=== PATIENT | male | born 1980 | race Caucasian/White ===

== ENCOUNTER 2024-06-27 20:22 | Outpatient (REF) | payer OTHER, SELFPAY ==
--- OUTSIDE RECORDS SUMMARY | 2024-06-27 20:23 | XMS_ITS ---
Author Name [facility] [place] [facility] [place] [facility] [place] Address [address] [place] [address] Care Team Providers Care Land Classifier Name Role Phone DE LA VEGA RADHA Primary Care Provider Unavailab le Insurance Providers: All historical and current Section Date Range: From patient's date of to the date document was created. This section includes the names of all active insurance providers for the patient. Insurance Provider Type of Coverage Plan Name Start of Policy Coverage End of Policy Coverage Group Number Member ID Insurance Provider's Telephone Number Policy Meza's Name Patient's Relationship to Policy Meza [employer] TRICA RE DODA Apr 07, 2012 DODA [id number] [phone] PATIENT [facility] [address] T Jun 03, 2017 [id number] [phone] [facility] PATIENT Selected Encounter This section includes the information on record at [place] for the Encounter. Date/Time Encounter Type Encounter Description Reason Pro vider Source Jul 09, 2023 03:57 PM Outpatient Encounter PRIMARY CARE/MEDICINE IHE Encounter Template Text not used by [place] Plan of Treatment: Future Appointments (+ 6 months) and Future Tests (+/- 45 days) The Plan of Treatment section includes future care activities for the patient from all [facility]. This section includes future appointments and future orders which are active, pending or scheduled. Future Appointments This section includes appointments that were scheduled to occur 6 months from the date of the Encounter, up to a maximum of 20 appointments. The data comes from all [place] treatment facilities. Appointment Date/Time Appointment Type Appointme nt Facility Name Jul 17, 2023 04:00 PM AMBULATORY - MEDICINE [facility] Social History: Smoking Status (Most current) and Tobacco Use (All prior to encounter date) This section includes the most current, and the historical, smoking and tobacco- related health factors from the [place] facility where the Encounter took place. Current Smoking Status This section includes the most current smoking, or tobacco-related health factor, from the [place] facility where the Encounter took place. Date/Time Current Smoking Status Comment Facil mery Jun 20, 2023 09:00 AM AH-BPR SMOKING DEP LOYMENT UNKNOWN [facility] Tobacco Use History This section includes a history of the smoking, or tobacco-related health factors, that were collected on or before the date of the Encounter. The data comes from the [facility] where the Encounter took place. Date/Time Smoking Status/Tobacco Use Comment F acility Aug 08, 2010 12:30 PM LIFETIME NON-TOBACCO USER [facility] Encounter Notes: All associated encounter notes This section contains the clinical notes associated to the Encounter. Date/Time Encounter Note(s) Provider Source Jul 01, 2023 03:58 PM NONVA DIAGNOSTIC Anton WATSON REPORT: LOCAL TITLE: NonVA Diagnostic Test STANDARD TITLE: NONVA DIAGNOSTIC STUDY REPORT DATE OF NOTE: JUL 01, 2023@15:58 ENTRY DATE: JUL 09, 2023@15:58:27 AUTHOR: GAYATHRI ACEVESIGNER: URGENCY: STATUS: COMPLETED EVENT PROCEDURE: Exercise Stress Test TREATING FACILITY: [facility] Interpretation Summary Clinical PAtient exercised per supine bike protocol, reaching 10 METS and 66% MPHR. RPP of 27K Electrocardiographic Baseline study demonstrates sinus rhythm with non specific IVCD, Withoit significant ST-TW perturbation. With exercise, there are no diagnostic ischemic changes nor arrhythmias Echocardiographic Rest images demonstrate preserved global and regional LV systolic function. With Exercise, there is equal and vigorous recruitment of myocardium. Conclusion Although patient did not reach THR, the rate-pressure product of 27K is a surrogate parameter of diagnostic tests. THE ATTACHED SCANNED DOCUMENT HAS BEEN REVIEWED AND AUTHORIZED BY DOCUMENT (S) SENT TO [facility] TO BE SCANNED. TO VIEW THIS DOCUMENT, OPEN CPRS TOOLS MENU AND THEN OPEN THE IMAGE DISPLAY VIEWER. /kristie/ GAYATHRI ACEVES LPN Signed: 07/09/2023 16:05 Receipt Acknowledged By: 07/15/2023 16:04 /kristie/ GAYATHRI STEINBERG APRN [facility]
--- OUTSIDE RECORDS SUMMARY | 2024-06-27 20:23 | XMS_ITS | Encounter Summary ---
Author Name [facility] [place] [facility] [place] Address [address] [place] [address] Care Team Providers Care Incident Response Lead Name Role Phone RADHA DE LA VEGA Primary Care Provider Unavailab le Insurance Providers: [...] TRICA RE DODA Apr 07, 2012 DODA [id number] PATIENT [facility] [address] T Jun 03, 2017 [id number] [phone] [address] PATIENT Selected Encounter This section includes the information on record at [place] for the Encounter. Date/Time Encounter Type Encounter Description Reason Pro vider Source Jul 01, 2023 12:00 PM Outpatient Encounter COMMUNITY CARE CONSULT IHE Encounter Template Text not used by [facility] Plan of Treatment: Future Appointments (+ 6 [...] 20 appointments. The data comes from all [place] treatment facilities. Appointment Date/Time Appointment Type Appointme nt Facility Name Jul 17, 2023 04:00 PM AMBULATORY - MEDICINE [facility] Social History: Smoking Status (Most current) and Tobacco Use (All prior to encounter date) This section includes the most current, and the historical, smoking and tobacco- related health factors from the [place] facility where the Encounter took place. Current Smoking Status This section includes the most current smoking, or tobacco-related health factor, from the [place] facility where the Encounter took place. Date/Time Current Smoking Status Comment Facil ity Jun 20, 2023 09:00 AM AH-BPR SMOKING DEP LOYMENT UNKNOWN [facility] Tobacco Use History This section includes a history of the smoking, or tobacco-related health factors, that were collected on or before the date of the Encounter. The data comes from the [place] facility where the Encounter took place. Date/Time Smoking Status/Tobacco Use Comment F acility Aug 08, 2010 12:30 PM LIFETIME NON-TOBACCO USER [facility] Encounter Notes: All associated encounter notes This section contains the clinical notes associated to the Encounter. Date/Time Encounter Note(s) Provider Source Jul 01, 2023 12:00 PM NONVA CONSULT: LOCAL TITLE: COMMUNITY CARE CONSULT RESULT NOTE STANDARD TITLE: NONVA CONSULT DATE OF NOTE: JUL 01, 2023@12:00 ENTRY DATE: JUL 15, 2023@10:04:27 AUTHOR: ADAM HOOKS EXP COSIGNER: URGENCY: STATUS: COMPLETED VistA Imaging - Scanned Document Consult / Referral: May 23 (s) COMMUNITY CARE-STRESS TEST Cons Consult # [id number] Date of Service (Procedure/Event): 07/01/2023 Note Title: COMMUNITY CARE CONSULT RESULT NOTE Origin: FEE Type: MEDICAL RECORD Specialty: CARDIOLOGY Procedure: STRESS TEST SCANNED DOCUMENT SIGNATURE NOT REQUIRED Electronically Filed: 07/15/2023 by: ADAM HOOKS Lead Regional Business Development Manager ADAM HOOKS [facility]
--- OUTSIDE RECORDS SUMMARY | 2024-06-27 20:23 | XMS_ITS | Continuity of Care Document ---
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 2024 08:46 AM Reporting Lab: [facility] [address] [facility] [address] Performing Lab: [facility] [address] [facility] [address] [facility] LIPOPROT EIN CHOLESTE ROL FRACT. PANEL CHOLESTERO L IN LDL [MASS/VOLU ME] IN SERUM OR PLASMA BY CALCULATIO N 180 mg/dL 0 - 129 01/09 H Specimen Type: PLASMA Comment: , Tests performed on [place] Tip Stitcher Hi SN:[id number] (405). Ordering Provider: HUNTER DASH Report Released Date/Time: Jan 10, 2024 08:46 AM Reporting Lab: [facility] [address] [facility] [address] Performing Lab: [facility] [address] [facility] [address] [facility] Vital Signs Combined list of inpatient and outpatient Vital Signs from Department of Defense and Veterans Affairs, ranging from 12 months to all on record, depending upon the facility. Vital Sign Value Date Comments Source SYSTOLIC BLOOD PRESSURE 128 01/10/2024 08:18:36 [facility] DIASTOLIC BLOOD PRESSURE 80 01/10/2024 08:18:36 [facility] PULSE OXIMETRY 97 01/10/2024 08:18:36 [facility] WEIGHT 254.2 01/10/2024 08:18:36 [facility] BMI 31kg/m2 01/10/2024 08:18:36 [facility] PAIN 0 01/10/2024 08:18:36 [facility] HEIGHT 76 01/10/2024 08:18:36 [facility] TEMPERATURE 96.9 01/10/2024 08:18:36 [facility] PULSE 64 01/10/2024 08:18:36 Carlos Solano [facility] Encounters Combined list of: 1) Encounters from Department of Veterans Affairs facilities going back up to thelast 18 months. 2) Encounters from the Department of Defense facilities going back up to 280 months. Location Location Details Encounter Type Encounter Number Reason For Visit Attending Provider ADM Date DC Date Status Disposition Source [facility] OUT[facility] [id number] athlete s feet ERI PRITCHARD JR 05/08 Released w/o Limitations 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 s) ALICE Hawley([facility]) OUTPATIENT [id number] sore throat ( Aco,08/02 73,mob) KATE MENDOZA D 06/23 Sick at Home/Quarter s ALICE Hawley([facility]) ALICE Hawley([facility]) OUTPATIENT [id number] LT ARM PAIN ( Aco,08/02 73,INF, MOB) CATHERINE UPTON 06/30 Released with Work/Duty Limitations ALICE Hawley([facility]) ALICE Hawley([facility]) OUTPATIENT [id number] LOD ( A co ,I Nf MOB) CATHERINE UPTON 07/04 Released w/o Limitations ALICE Hawley([facility]) ALICE Hawley([facility]) OUTPATIENT [id number] initial appt BETINA MORRELL 04/21 Released w/o Limitations ALICE Hawley(Irel and Traumat ic Brain Injury) ALICE Hawley([facility]) OUTPATIENT [id number] JAIME ALBARRAN(88 ,DEMOB) LUCIO GRIGGS 04/22 Released w/o Limitations Michell Ernst [place]([facility]) [facility] Outpatient Encounter [id number] 12/25 [facility] OFFICE O/P EST MOD 30-39 MIN [id number] [id number] Diagnos is: ICD-10- CM M25.561 Pain in right knee
RUDDY DASH 05/23 [facility] Outpatient Encounter [id number] NISHA CARR 05/23 [facility] OFF/OP EST OCTOBER X REQ PHY/QHP [id number] Diagnos is: ICD-10- CM Z23 Encount er for immuniz ation<b r/> PRABHJOT RODRIGUEZ A 05/23 [facility] MEASURE BLOOD OXYGEN LEVEL [id number] Diagnos is: ICD-10- CM F43.12 Post-tr aumatic stress disorde r, chronic
Kathleen PEREZ MY A 06/20 [facility] OFF/OP EST OCTOBER X REQ PHY/QHP [id number] Diagnos is: ICD-10- CM R06.00 Dyspnea , unspeci fied
Bridgette GARCIA ITSUO 06/20 [facility] TELEHEALTH FACILITY FEE [id number] SHA ANDUJAR 06/25 [facility] OFFICE O/P NEW MOD 45 MIN [id number] Diagnos is: ICD-10- CM Z71.9 Gyroscope Technician ing, unspeci fied
LEAH,CA ALMAZ 06/25 [facility] Outpatient Encounter [id number] 07/01 [facility] Outpatient Encounter [id number] 07/09 [facility] OFFICE O/P EST MOD 30 MIN [id number] Diagnos is: ICD-10- CM J30.2 Other seasona l allergi c rhiniti s
HARDY,RUDDY ANNA L 07/17 [facility] Outpatient Encounter [id number] 09/03 [facility] OFFICE O/P EST MOD 30 MIN [id number] [id number] Diagnos is: ICD-10- CM M54.50 Low back pain, unspeci fied
HARDY,RUDDY ANNA L 01/09 [facility] Outpatient Encounter [id number] 01/12 [facility] Outpatient Encounter [id number] 01/13 [facility] OFFICE O/P EST SF 10 MIN [id number] Diagnos is: ICD-10- CM R93.2 Abnorma l finding s on dx imaging of liver and biliary tract<b r/> HARDY,RUDDY ANNA L 01/30 [facility] Outpatient Encounter [id number] 02/20 [facility] Outpatient Encounter [id number] Diagnos is: ICD-10- CM R94.5 Abnorma l results of liver functio n studies
HARDY,RUDDY ANNA L 03[facility] ADDL 15 MIN [id number] [id number] Diagnos is: ICD-10- CM E78.5 Hyperli pidemia , unspeci fied
JESSICA KENYON 05/[address] [facility] Procedures Combined list of: 1) Procedures from Department of Veterans Affairs facilities going back up to thelast 18 months, not all [place] non-surgical procedures are included; 2) All procedures from the Department of Defense facilities. Procedure Procedure Type Code Date Perfomer Comments Sourc e DRUGS OR MEDICAMENTS DISPENSED IN THE OFFICE FOR HOME USE 12/23/2001 [facility] AUDIOMETRIC TESTING OF GROUPS 05/05/2004 [facility] UNLISTED VACCINE/TOXOID 05/05/2004 [facility] EDUCATION &TRAINING, PATIENT SELF-MGT QUALIFIED, NONPHYSICIAN HEALTH ZINC CHLORIDE OPERATOR USING STDIZED CURRICULUM, [id number] W THE PATIENT (COULD INCL CAREGIVER/FAMILY) EA 30 MIN; INDIVIDUAL PATIENT 04/21/2010 [facility] INDIVIDUAL PSYCHOTHERAPY, INSIGHT ORIENTED, BEHAVIOR MODIFYING AND/OR SUPPORTIVE, IN AN OFFICE OR OUTPATIENT FACILITY, APPROXIMATELY 20 TO 30 MINUTES [id number] WITH THE PATIENT 04/21/2010 [facility] INFLUENZA VIRUS VACCINE, TRIVALENT (IIV3), SPLIT VIRUS, 0.5 ML DOSAGE, FOR INTRAMUSCULAR USE 05/18/2009 [facility] SCREENING TEST OF VISUAL ACUITY, QUANTITATIVE, BILATERAL 05/17/2009 [facility] Patient Counseling Medical Management Individual Patient Patient Counseling Medical Management Individual Patient [id number] 04/22/2010 BETINA MORRELL [facility] Clinical Social Work Individual Outpatient Counseling 30 Minutes Clinical Social Work Individual Outpatient Counseling 30 Minutes [id number] 04/21/2010 NEVIN DAVIS [facility] Social History Combined list of available smoking, tobacco, and other social history from Department of Defense and Veterans Affairs facilities. Social History Type Response Date Comment Source Tobacco smoking status [facility] AH-BPR SMOKING DEPLOYMENT UNKNOWN 06/20/2023 VERNA SALAZAR [facility] History of tobacco use VA-TOBACCO USER EVERY DAY 05/23/2023 [facility] History of tobacco use VA-TOBACCO FORMER USER 05/17/2022 [facility] History of tobacco use VA-TOBACCO NEVER USED 03/03/2021 [facility] History of tobacco use LIFETIME NON-TOBACCO USER 08/08/2010 [facility] History of tobacco use CURRENT SMOKER 08/01/2005 1/4-1/2 pack a day [facility] This section is an empty social history section. [facility] Plan of Care List of future care activities from Department of [facility] Affairs facilities. Additional future care activities may be listed in the Assessment and Plan section. Date/Time Care Activity Care Activity Detail Facili ty 08/10/2024 AMBULATORY - NONE AMBULATORY - NONE [facility] 08/13/2024 AMBULATORY - MEDICINE AMBULATORY - MEDICI NE [facility] 08/10/2024 Laboratory - Rent Collector ry Order LIPOPROTEIN CHOLESTEROL FRACT. PANEL LT GREEN(LI HEP) PLASMA SP [facility] 08/10/2024 Laboratory - Rent Collector ry Order LIVER PROFILE LT GREEN(LI HEP) PLASMA SP [facility]
--- OUTSIDE RECORDS SUMMARY | 2024-06-27 20:24 | XMS_ITS | Encounter Summary ---
Author Name [facility] [place] [facility] [facility] [place] Address [address] [place] [address] Care Team Providers Care Horse Buyer Name Role Phone DE LA VEGARADHA CLEMENS Primary Care Provider Unavailab le Insurance Providers: [...] TRICA RE DODA Apr 07, 2012 DODA [id number] ANITA,PET ER PATIENT [facility] 2018 RESER VE SELEC T Jun 03, 2017 [id number] ANITA,PET ER PATIENT Selected Encounter This section includes the information on record at [place] for the Encounter. Date/Time Encounter Type Encounter Description Reason Provider Source Jan 31, 2024 11:30 AM OFFICE O/P EST SF 10 MIN PRIMARY CARE/MEDICINE ICD-10-CM R93.2 Abnormal findings on dx imaging of liver and biliary tract MATTHEW DASH IHLorenzo Encounter Template Text not used by [place] Assessments - Encounter Diagnoses This section includes the primary and secondary diagnoses documented for the Encounter. Date/Time Primary/Secondary Diagnosis Diagnosis Name Provider Source Jan 31, 2024 11:30 AM PRIMARY Abnormal findings on dx imaging of liver and biliary tract MATTHEW DASH [facility] Plan of Treatment: Future Appointments (+ 6 months) and Future Tests (+/- 45 days) The Plan of Treatment section includes future care activities for the patient from all [place] treatmentfacilities. This section includes future appointments and future orders which are active, pending or scheduled. Future Appointments This section includes appointments that were scheduled to occur 6 months from the date of the Encounter, up to a maximum of 20 appointments. The data comes from all [place] treatment facilities. Appointment Date/Time Appointment Type Appointme nt Facility Name Feb 07, 2024 07:15 AM AMBULATORY - NONE [facility] JUSTIN RONALDO [facility] Mar 26, 2024 02:30 PM AMBULATORY - MEDICINE AZUL SALAZAR [facility] Apr 07, 2024 01:00 PM AMBULATORY - NONE WHITE RI RONALDO [facility] Apr 15, 2024 03:30 PM AMBULATORY - NONE [facility] May 21, 2024 03:30 PM AMBULATORY - MEDICINE AZUL SALAZAR [facility] Jun 02, 2024 01:00 PM AMBULATORY - NONE WHITE JUSTIN HIGGINS [facility] Lab Results: +/- 30 days of the encounter This section includes the Chemistry and Hematology Lab Results on record with [place] for the patient. Radiology Reports and Pathology Reports are provided separately, in subsequent sections. Lab Results This section contains the Chemistry/Hematology Results that were resulted 30 days before or 30 daysafter the date of the Encounter. Date/Time Source Result Type Result - Unit Interpretation Reference Range Comment Jan 10, 2024 09:[address] [facility] LIVER PROFILE Specimen Type: PLASMA Comment: , Tests performed on AutoUncle SN:[id number] (405). Ordering Provider: MATTHEW DASH Report Released Date/Time: Jan 10, 2024 08:46 AM Reporting Lab: [facility] [address] [place] [address] Performing Lab: [facility] [address] [facility] [address] PROTEIN, TOTAL 7.3 g/dL 6.0-8.5 ALBUMIN 4.3 g/dL 3.2-5.0 BILIRUBIN, TOTAL 0.6 mg/dL 0.2-1.2 ALKALINE PHOSPHATASE 58 U/L 40-150 ALT(SGPT) 56 U/L H 7-52 AST(SGOT) 38 U/L H 5-34 FIB-4 SCORE 0.79 <2.67 Jan 10, 2024 09:[address] [facility] CBC NO DIFF Specimen Type: BLOOD No comment entered. Ordering Provider: MATTHEW DASH Report Released Date/Time: Jan 10, 2024 08:46 AM Reporting Lab: [facility] [address] [facility] [address] Performing Lab: [facility] [address] [facility] [address] WBC 5.7 10*3/uL 4.5-11.0 RBC 5.13 10*6/uL 4.23-5.66 HGB 15.7 g/dL 12.8-17 HEMATOCRIT 45.6 39.2-50.4 MCV 88.9 fL 82-99 MCH 30.6 pg 26.2-32.6 MCHC 34.4 g/dL 30.8-35.1 PLT 265 10*3/uL 140-360 MPV 10.8 fL 9.2-12.4 RDW 12.1 12.0-16.0 Jan 10, 2024 09:[address] [facility] LIPOPROTEIN CHOLESTEROL FRACT. PANEL Specimen Type: PLASMA Comment: , Tests performed on AutoUncle SN:[id number] (405). Ordering Provider: MATTHEW DASH Report Released Date/Time: Jan 10, 2024 08:46 AM Reporting Lab: [facility] [address] [facility] [address] Performing Lab: [facility] [address] [facility] [address] CHOLESTEROL 245 mg/dL H 0-200 TRIGLYCERIDE 116 mg/dL 0-150 HDL CHOLESTEROL 42 mg/dL >40 LDL CHOLESTEROL (CALC) 180 mg/dL H 0-129 Jan 10, 2024 09:[address] [facility] P4 GLU,BUN,CREAT,LYTES,CA Specimen Type: PLASMA Comment: , Tests performed on AutoUncle SN:[id number] (405). Ordering Provider: MATTHEW DASH Report Released Date/Time: Jan 10, 2024 08:46 AM Reporting Lab: [facility] [address] [facility] [address] Performing Lab: [facility] [address] [facility] [address] UREA NITROGEN 13 mg/dL 7-25 SODIUM 138 mmol/L 135-145 POTASSIUM 4.2 mmol/L 3.5-5.0 CHLORIDE 104 mmol/L 100-110 CARBON DIOXIDE 27 mmol/L 20-30 ANION GAP 7 4-16 GLUCOSE 109 mg/dL H 65-100 CREATININE 1.19 mg/dL 0.50-1.50 CALCIUM 9.5 mg/dL 8.5-10.5 eGFR(CKD-EPI 2020) 79 mL/min Jan 10, 2024 09:[address] [facility] GLYCOHEMOGLOBIN (A1C ONLY) Specimen Type: BLOOD Comment: , Tests performed on ArcSight SN:[id number] (405) Values obtained from A1C measurements can vary. For typical A1C assays, a reported value of 7.0 could actually be between 6.72 and 7.28 if measured by a reference method. A reported value of 9.0 could actually be between 8.73 and 9.27. Ref: http://www.ng sp.org/CAPdat a.asp Ordering Provider: MATTHEW DASH Report Released Date/Time: Jan 10, 2024 08:46 AM Reporting Lab: [facility] [address] [facility] [address] Performing Lab: [facility] [address] [address] HEMOGLOBIN A1C 4.8 4.0-5.6 Jan 10, 2024 09:[address] [facility] PSA (TALENT ACQUISITION PARTNER) Specimen Type: SERUM Comment: , Tests performed on Saplo Gomez SN:[id number] (405) TSH within normal limits. Reflex testing not required. Ordering Provider: MATTHEW DASH Report Released Date/Time: Jan 10, 2024 08:46 AM Reporting Lab: [facility] [address] [facility] [address] Performing Lab: [facility] [address] [address] PSA (TALENT ACQUISITION PARTNER) 1.30 ng/mL Jan 10, 2024 09:[address] [facility] THYROID TESTING CASCADE Specimen Type: SERUM Comment: , Tests performed on [place] Staff Development Coordinator Rn Gomez SN:[id number] (405) TSH within normal limits. Reflex testing not required. Ordering Provider: MATTHEW DASH Report Released Date/Time: Jan 10, 2024 08:46 AM Reporting Lab: [facility] [address] [facility] [address] Performing Lab: [facility] [address] [facility] [address] TSH 3.33 u[IU]/mL 0.35-5.00 Jan 10, 2024 09:[address] [facility] VIT D 25-OH(WRJ) Specimen Type: SERUM Comment: , Tests performed on [employer] Staff Development Coordinator Rn Gomez SN:[id number] (405) TSH within normal limits. Reflex testing not required. Ordering Provider: MATTHEW DASH Report Released Date/Time: Jan 10, 2024 08:46 AM Reporting Lab: [facility] [address] [facility] [address] Performing Lab: [facility] [address] [facility] [address] VIT D 25-OH([facility]) 33.8 ng/mL 20.0-50.0 Jan 10, 2024 09:[address] [facility] MAGNESIUM Specimen Type: PLASMA Comment: , Tests performed on [place] Case[employer] SN:[id number] (405). Ordering Provider: MATTHEW DASH Report Released Date/Time: Jan 10, 2024 09:14 AM Reporting Lab: [facility] [address] [facility] [address] Performing Lab: [facility] [address] [facility] [address] MAGNESIUM 2.1 mg/dL 1.6-2.6 Social History: Smoking Status (Most current) and Tobacco Use (All prior to encounter date) This section includes the most current, and the historical, smoking and tobacco- related health factors from the [place] facility where the Encounter took place. Current Smoking Status This section includes the most current smoking, or tobacco-related health factor, from the [place] facility where the Encounter took place. Date/Time Current Smoking Status Comment Facil mery Jun 20, 2023 09:00 AM AH-BPR SMOKING DEP LOYMENT UNKNOWN [place] [facility] Tobacco Use History This section includes a history of the smoking, or tobacco-related health factors, that were collected on or before the date of the Encounter. The data comes from the [place] facility where the Encounter took place. 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 [facility] May 23, 2023 11:30 AM VA-TOBACCO USE MED NO [facility] May 23, 2023 11:30 AM VA-TOBACCO USE WI [address] [facility] May 23, 2023 11:30 AM VA-TOBACCO USER EVERY DAY [facility] May 17, 2022 01:00 PM VA-TOBACCO FORMER USER [facility] May 17, 2022 01:00 PM VA-TOBACCO QUIT 5 TO < [address] [facility] Mar 03, 2021 10:00 AM VA-TOBACCO NEVER USED [facility] Aug 01, 2005 09:00 AM CURRENT SMOKER 1/4-1/[address] [facility] Aug 01, 2005 09:00 AM LIFETIME NON-TOBACCO USER [facility] Aug 01, 2005 09:00 AM QUIT TOBACCO USE 1 -[address] [facility] Radiology Reports: +/- 30 days of the encounter Radiology Reports For cases when an order for radiology services may have been completed prior to the date of the Encounter, the report list includes the Radiology Reports that were completed up to 30 days before dateof the Encounter. For cases when an order for radiology services may have been completed after the date of the Encounter, the report list also includes the Radiology Reports that were completed up to30 days after date of the Encounter. The data comes from all [place] treatment facilities. Date/Time Radiology Report Provider Source Feb 07, 2024 07:15 AM ULTRASOUND RUQ (GB,LIVER,BILIARY): SALOME HOWARD [id number] -1980 M Exm Date: FEB 07, 2024@07:15 Req Phys: MATTHEW DASH Pat Loc: LIT PACT T (Req'g Loc) Img Loc: ULTRASOUND (OOS) Service: Unknown [place] [address] (Case [id number] COMPLETE) ULTRASOUND RUQ (GB,LIVER,BILIARY)(US Detailed) CPT:23612 Reason for Study: elevated LFts Clinical History: 43 Y M PMH hypercholesterolemia, elevated LFTs. ETOH use, PTSD, shoulder pain, knee pain, back pain, chronic rhinitis Report Status: Verified Date Reported: FEB 07, 2024 Date Verified: FEB 07, 2024 Blueprint Trimmer E-Sig:/ES/CESAR FISHMAN Report: Examination: Ultrasound abdomen and liver elastography. Indication: elevated LFts. Technique: Real-time grayscale ultrasonographic imaging with color Doppler was used for evaluation of the right upper abdominal quadrant. Hepatic stiffness was evaluated using sonographic elastography technique. Comparison: None. Findings: Portions of liver are not well seen which limits examination. The liver demonstrates diffuse increased echogenicity concerning for hepatic fatty infiltration. A 0.8 x 0.8 x 1.0 cm round circumscribed in the right lobe of the lumbar is likely hemangioma. Additionally, there is a 1.8 cm round circumscribed hypoechoic solid-appearing lesion in the right lobe liver. There is no evidence of intrahepatic biliary ductal dilatation. The liver measures 18.8 cm craniocaudal as measured in the sagittal plane. Doppler interrogation of main portal vein demonstrates antegrade flow. Main portal vein is mildly dilated measuring 1.5 cm diameter. Liver elastography EQI Med (kPa): 12.15. Liver EQI IQR/Med: (%): 6. The gallbladder is normal in size. There is no gallbladder wall thickening or pericholecystic fluid. No cholelithiasis is seen. The common duct is not well delineated which limits examination. The common duct is normal in caliber measuring 0.4 cm in diameter. The pancreas is not well seen. The right kidney is not well seen which limits examination. The right kidney measures 12.5 cm craniocaudal as measured in the sagittal plane. There is no obvious hydronephrosis or nephrolithiasis on the right. Impression: Portions of liver are not well seen which limits examination. There is diffuse hepatic fatty infiltration. A 0.8 x 0.8 x 1.0 cm echogenic lesion in the right lobe liver is likely hemangioma. A 1.8 cm solid-appearing lesion in the right lobe liver is indeterminate in etiology, neoplasm not excluded. A MRI examination of the abdomen is recommended to further evaluate this lesion. Evaluation of hepatic stiffness is suggestive of stage IV hepatic fibrosis. The liver appears to be large in size. Primary Diagnostic Code: NO IMMEDIATE ATTENTION REQUIRED Primary Interpreting Staff: CESAR FISHMAN, radiologist (Blueprint Trimmer) /fml CESAR FISHMAN [facility] Feb 07, 2024 07:15 AM ELASTOGRAPHY PAREN CHYMA (E.G., ORGAN): SALOME HOWARD [id number] -1980 M Exm Date: FEB 07, 2024@07:15 Req Phys: MATTHEW DASH Pat Loc: LIT PACT T (Req'g Loc) Img Loc: ULTRASOUND (OOS) Service: [place] [address] (Case [id number] COMPLETE) ELASTOGRAPHY PARENCHYMA (E.G., OR(US Detailed) CPT:68570 Reason for Study: elv lfts fatty liver Clinical History: 43 Y M PMH hypercholesterolemia, elevated LFTs. ETOH use, PTSD, shoulder pain, knee pain, back pain, chronic rhinitis Report Status: Verified Date Reported: Date Verified: FEB 10, 2024 Blueprint Trimmer E-Sig: Report: Examination: Ultrasound abdomen and liver elastography. Indication: elevated LFts. Technique: Real-time grayscale ultrasonographic imaging with color Doppler was used for evaluation of the right upper abdominal quadrant. Hepatic stiffness was evaluated using sonographic elastography technique. Comparison: None. Findings: Portions of liver are not well seen which limits examination. The liver demonstrates diffuse increased echogenicity concerning for hepatic fatty infiltration. A 0.8 x 0.8 x 1.0 cm round circumscribed in the right lobe of the lumbar is likely hemangioma. Additionally, there is a 1.8 cm round circumscribed hypoechoic solid-appearing lesion in the right lobe liver. There is no evidence of intrahepatic biliary ductal dilatation. The liver measures 18.8 cm craniocaudal as measured in the sagittal plane. Doppler interrogation of main portal vein demonstrates antegrade flow. Main portal vein is mildly dilated measuring 1.5 cm diameter. Liver elastography EQI Med (kPa): 12.15. Liver EQI IQR/Med: (%): 6. The gallbladder is normal in size. There is no gallbladder wall thickening or pericholecystic fluid. No cholelithiasis is seen. The common duct is not well delineated which limits examination. The common duct is normal in caliber measuring 0.4 cm in diameter. The pancreas is not well seen. The right kidney is not well seen which limits examination. The right kidney measures 12.5 cm craniocaudal as measured in the sagittal plane. There is no obvious hydronephrosis or nephrolithiasis on the right. Impression: Portions of liver are not well seen which limits examination. There is diffuse hepatic fatty infiltration. A 0.8 x 0.8 x 1.0 cm echogenic lesion in the right lobe liver is likely hemangioma. A 1.8 cm solid-appearing lesion in the right lobe liver is indeterminate in etiology, neoplasm not excluded. A MRI examination of the abdomen is recommended to further evaluate this lesion. Evaluation of hepatic stiffness is suggestive of stage IV hepatic fibrosis. The liver appears to be large in size. Primary Diagnostic Code: NO IMMEDIATE ATTENTION REQUIRED Primary Interpreting Staff: CESAR FISHMAN, radiologist Verified by general lot attendant for CESAR FISHMAN /CESAR VUONG [facility] Feb 07, 2024 07:03 AM SHOULDER (ORTHO) 4 VIEWS: SALOME HOWARD [id number] -1980 Ex Date: FEB 07, 2024@07:03 Req Phys: HARDY,MATTHEW L Pat Loc: [facility] PACT T (Req'g Loc) Img Loc: XRAY (OOS) Service: [place] [address] (Case [id number] COMPLETE) SHOULDER (ORTHO) 4 VIEWS (RAD Detailed) CPT:64984 Proc Modifiers : LEFT Reason for Study: long standing shoulder pain Clinical History: Report Status: Verified Date Reported: FEB 07, 2024 Date Verified: FEB 07, 2024 Blueprint Trimmer E-Sig:/ES/CATHERINE PINEDA Report: Bilateral shoulders: COMPARISON: Left shoulder (radiographs) 11/16/2010 Right shoulder: The bones are normally mineralized. The glenohumeral articulation is well-maintained. There are a few small faint calcifications in the soft tissues immediately superior to the greater humeral tubercle. The periarticular soft tissues are otherwise unremarkable. The acromioclavicular joint is normally aligned and well maintained. The adjacent superior lateral chest wall is intact and unremarkable. Left shoulder: Bones are normally mineralized. The glenohumeral intervals well-maintained. Trace marginal osteophyte formation is associated with subacromial space. The periarticular soft tissues are otherwise unremarkable. The acromioclavicular joint is well-maintained there is expansion of the distal end of the clavicle which may be related to previous trauma. The visualized adjacent left hemithorax is unremarkable. Impression: 1. Soft tissue calcifications adjacent to the humeral heads bilaterally consistent with a calcific tendinitis. 2. Deformity of the distal left clavicle thought to be related to sequela of previous trauma. The inferior aspect of the glenoid. Once again there are a couple of soft tissue calcifications adjacent to the greater humeral tubercle and Primary Diagnostic Code: NO IMMEDIATE ATTENTION REQUIRED Primary Interpreting Staff: CATHERINE PINEDA, RADIOLOGY ATTENDING (Blueprint Trimmer) /CATHERINE VEE [facility] Feb 07, 2024 07:03 AM SHOULDER (ORTHO) 4 VIEWS: SALOME HOWARD JAG [id number] -1980 M Exm Date: FEB 07, 2024@07:03 Req Phys: MATTHEW DASH Pat Loc: [facility] PACT T (Req'g Loc) Img Loc: XRAY (OOS) Service: [place] [address] (Case [id number] COMPLETE) SHOULDER (ORTHO) 4 VIEWS (RAD Detailed) CPT:65812 Proc Modifiers : RIGHT Reason for Study: Long standing shoulder pain Clinical History: Report Status: Verified Date Reported: FEB 07, 2024 Date Verified: FEB 07, 2024 Blueprint Trimmer E-Sig:/ES/CATHERINE PNIEDA Report: Bilateral shoulders: COMPARISON: Left shoulder (radiographs) 11/16/2010 Right shoulder: The bones are normally mineralized. The glenohumeral articulation is well-maintained. There are a few small faint calcifications in the soft tissues immediately superior to the greater humeral tubercle. The periarticular soft tissues are otherwise unremarkable. The acromioclavicular joint is normally aligned and well maintained. The adjacent superior lateral chest wall is intact and unremarkable. Left shoulder: Bones are normally mineralized. The glenohumeral intervals well-maintained. Trace marginal osteophyte formation is associated with subacromial space. The periarticular soft tissues are otherwise unremarkable. The acromioclavicular joint is well-maintained there is expansion of the distal end of the clavicle which may be related to previous trauma. The visualized adjacent left hemithorax is unremarkable. Impression: 1. Soft tissue calcifications adjacent to the humeral heads bilaterally consistent with a calcific tendinitis. 2. Deformity of the distal left clavicle thought to be related to sequela of previous trauma. The inferior aspect of the glenoid. Once again there are a couple of soft tissue calcifications adjacent to the greater humeral tubercle and Primary Diagnostic Code: NO IMMEDIATE ATTENTION REQUIRED Primary Interpreting Staff: CATHERINE PINEDA, RADIOLOGY ATTENDING (Blueprint Trimmer) /CATHERINE VEE [facility] Feb 07, 2024 07:03 AM KNEE 4 VIEWS (ORTH O): SALOME HOWARD [id number] -1980 M Exm Date: FEB 07, 2024@07:03 Req Phys: HARDY,MATTHEW L Pat Loc: [facility] PACT T (Req'g Loc) Img Loc: XRAY (OOS) Service: [place] [address] (Case [id number] COMPLETE) KNEE 4 VIEWS (ORTHO) (RAD Detailed) CPT:62362 Proc Modifiers : LEFT Reason for Study: knee pain Clinical History: pain walking or bending Report Status: Verified Date Reported: FEB 07, 2024 Date Verified: FEB 07, 2024 Blueprint Trimmer E-Sig:/ES/CATHERINE PINEDA Report: Bilateral knees: COMPARISON: Right knee (radiographs) 08/31/2010 Right knee: The bones are normally mineralized. The medial, lateral and patellofemoral articulations are well-maintained. The patella is normally aligned and without tilt. There is no evidence of joint effusion. A minor enthesophyte is associated with the tibial tubercle. The surrounding soft tissues are unremarkable. Left knee: Bones are normally mineralized. There is mild narrowing of the medial joint compartment. The lateral and patellofemoral articulations are well-maintained. The patella is normally aligned in the intracondylar notch and without tilt. Incidentally noted is an enthesophyte arising from the tibial tubercle. There is little if any evidence of a joint effusion. The surrounding soft tissues are otherwise unremarkable. Impression: Mild degenerative changes of the medial compartment of the left knee Primary Diagnostic Code: NO IMMEDIATE ATTENTION REQUIRED Primary Interpreting Staff: CATHERINE PINEDA, RADIOLOGY ATTENDING (Blueprint Trimmer) /CATHERINE VEE [facility] Feb 07, 2024 07:03 AM KNEE 4 VIEWS (ORTH O): SALOME HOWARD [id number] -1980 M Exm Date: FEB 07, 2024@07:03 Req Phys: HARDY,MATTHEW L Pat Loc: [facility] PACT T (Req'g Loc) Img Loc: XRAY (OOS) Service: [place] [address] (Case [id number] COMPLETE) KNEE 4 VIEWS (ORTHO) (RAD Detailed) CPT:92123 Proc Modifiers : RIGHT Reason for Study: knee pain Clinical History: pain walking bending Report Status: Verified Date Reported: FEB 07, 2024 Date Verified: FEB 07, 2024 Blueprint Trimmer E-Sig:/ES/CATHERINE PINEDA Report: Bilateral knees: COMPARISON: Right knee (radiographs) 08/31/2010 Right knee: The bones are normally mineralized. The medial, lateral and patellofemoral articulations are well-maintained. The patella is normally aligned and without tilt. There is no evidence of joint effusion. A minor enthesophyte is associated with the tibial tubercle. The surrounding soft tissues are unremarkable. Left knee: Bones are normally mineralized. There is mild narrowing of the medial joint compartment. The lateral and patellofemoral articulations are well-maintained. The patella is normally aligned in the intracondylar notch and without tilt. Incidentally noted is an enthesophyte arising from the tibial tubercle. There is little if any evidence of a joint effusion. The surrounding soft tissues are otherwise unremarkable. Impression: Mild degenerative changes of the medial compartment of the left knee Primary Diagnostic Code: NO IMMEDIATE ATTENTION REQUIRED Primary Interpreting Staff: CATHERINE PINEDA, RADIOLOGY ATTENDING (Blueprint Trimmer) /CATHERINE VEE [facility] Encounter Notes: All associated encounter notes This section contains the clinical notes associated to the Encounter. Date/Time Encounter Note(s) Provider Source Feb 26, 2024 08:43 AM PRIMARY CARE TELEP DARSHAN ENCOUNTER NOTE: LOCAL TITLE: Telephone Note-Primary Care STANDARD TITLE: PRIMARY CARE TELEPHONE ENCOUNTER NOTE DATE OF NOTE: FEB 26, 2024@08:43 ENTRY DATE: FEB 26, 2024@08:43:40 AUTHOR: MATTHEW DASH EXP COSIGNER: URGENCY: STATUS: COMPLETED Cell phone: Spoke with 02/25/24 re lesion on liver seen on US MRI recommedned agrees MRI ordered, unable to get questions answered as cell phone connestion was poor Impression: Portions of liver are not well seen which limits examination. There is diffuse hepatic fatty infiltration. A 0.8 x 0.8 x 1.0 cm echogenic lesion in the right lobe liver is likely hemangioma. A 1.8 cm solid-appearing lesion in the right lobe liver is indeterminate in etiology, neoplasm not excluded. A MRI examination of the abdomen is recommended to further evaluate this lesion. Evaluation of hepatic stiffness is suggestive of stage IV hepatic fibrosis. The liver appears to be large in size. Primary Diagnostic Code: NO IMMEDIATE ATTENTION REQUIRED Primary Interpreting Staff: CESAR FISHMAN, radiologist (Blueprint Trimmer) /fml /kristie/ MATTHEW DASH APRN Signed: 02/26/2024 08:[address] [facility]
--- OUTSIDE RECORDS SUMMARY | 2024-06-27 20:24 | XMS_ITS ---
Author Name [facility] [place] [facility] [place] [facility] [facility] [place] Address [address] [place] [address] Care Team Providers Care Scrap Carrier Name Role Phone ZAMORA TRI Primary Care Provider Unavailab le Insurance Providers: [...] TRICA RE DODA Apr 07, 2012 DODA [phone] ANITA,PET ER PATIENT [facility] 2018 RES[address] VE SELEC T Jun 03, 2017 [phone] ANITA,PET ER PATIENT Selected Encounter This section includes the information on record at [place] for the Encounter. Date/Time Encounter Type Encounter Description Reason Provider Source May 21, 2024 03:30 PM MTMS BY JIGAR HAHN 15 MIN TELEPHONE PRIMARY CARE ICD-10-CM E78.5 Hyperlipidemia, unspecified ASHLEY KENYON Encounter Template Text not used by [place] Assessments - Encounter Diagnoses This section includes the primary and secondary diagnoses documented for the Encounter. Date/Time Primary/Secondary Diagnosis Diagnosis Name Provider Source May 21, 2024 03:30 PM PRIMARY Hyperlipidemia, unspecified ASHLEY KENYON [facility] Plan of Treatment: Future Appointments (+ 6 months) and Future Tests (+/- 45 days) The Plan of Treatment section includes future care activities for the [facility] [place] [facility] This section includes future appointments and future orders which are active, pending or scheduled. Future Appointments This section includes appointments that were scheduled to occur 6 months from the date of the Encounter, up to a maximum of 20 appointments. The data comes from all [facility]. Appointment Date/Time Appointment Type Appointme nt Facility Name Jun 02, 2024 01:00 PM AMBULATORY - NONE [facility] RONALDO [facility] Aug 10, 2024 02:15 PM AMBULATORY - NONE [facility] Aug 13, 2024 02:30 PM AMBULATORY - MEDICINE [facility] Lorenzo SALAZAR [facility] Active, Pending, and Scheduled Orders This section includes a listing of several types of active, pending, and scheduled orders, including clinic medications orders, diagnostic test orders, procedure orders and consult orders; where the start date of the order is 45 days before the date of the Encounter or 45 days after the date of theEncounter. The data comes from all [facility]. Test Date/Time Test Type Test Details Facility Name Apr 15, 2024 03:30 PM Laboratory - Chemi stry Order IRON+TIBC(P) LT GREEN(LI HEP) PLASMA SP Added by [id number] on Apr 16, 2024@16:15 [facility] Social History: Smoking Status (Most current) and Tobacco Use (All prior to encounter date) This section includes the most current, and the historical, smoking and tobacco- related health factors from the [place] facility where the Encounter took place. Current Smoking Status This section includes the most current smoking, or tobacco-related health factor, from the [place] facility where the Encounter took place. Date/Time Current Smoking Status Comment Facil ity Jun 20, 2023 09:00 AM AH-BPR SMOKING DEP LOYMENT UNKNOWN VERNA SALAZAR [facility] Tobacco Use History This section includes a history of the smoking, or tobacco-related health factors, that were collected on or before the date of the Encounter. The data comes from the [place] facility where the Encounter took place. Date/Time Smoking Status/Tobacco Use Comment F acility May 23, 2023 11:30 AM VA-TOBACCO USE > 1 5 LESS THAN 30 YEARS [facility] May 23, 2023 11:30 AM VA-TOBACCO USE ADVICE [facility] May 23, 2023 11:30 AM VA-TOBACCO USE SEARCH ENGINE OPTIMIZATION CONSULTANT NO [facility] May 23, 2023 11:30 AM VA-TOBACCO USE MED NO [facility] May 23, 2023 11:30 AM VA-TOBACCO USE WI 30 MIN OF WAKEUP [facility] May 23, 2023 11:30 AM VA-TOBACCO USER EVERY DAY [facility] May 17, 2022 01:00 PM VA-TOBACCO FORMER USER [facility] May 17, 2022 01:00 PM VA-TOBACCO QUIT 5 TO < 15 YRS [facility] Mar 03, 2021 10:00 AM VA-TOBACCO NEVER USED [facility] Aug 01, 2005 09:00 AM CURRENT SMOKER 1/4-1/2 pack a day [facility] Aug 01, 2005 09:00 AM LIFETIME NON-TOBACCO USER [facility] Aug 01, 2005 09:00 AM QUIT TOBACCO USE 1 -7 YEARS AGO [facility] Encounter Notes: All associated encounter notes This section contains the clinical notes associated to the Encounter. Date/Time Encounter Note(s) Provider Source May 21, 2024 03:52 PM ADDENDUM: LOCAL TITLE: Addendum STANDARD TITLE: ADDENDUM DATE OF NOTE: MAY 21, 2024@15:52:07 ENTRY DATE: MAY 21, 2024@15:52:08 AUTHOR: ASHLEY KENYON EXP COSIGNER: URGENCY: STATUS: COMPLETED consult specifically asking for lipid management. t/w noted that upon documenting in the chart this has not yet been added to active problem list. have asked PCP to please add hyperlipidemia to active problem list /kristie/ ASHLEY KENYON, PHARMFlorence Clinical Pharmacist Practitioner Signed: 05/21/2024 15:52 Receipt Acknowledged By: 05/21/2024 16:38 /kristie/ Tri Zamora, TARIQ, MOTORCOACH OPERATOR, MEMBERSHIP COUNSELOR-C Nurse Practitioner --- Original Document --- 05/21/24 CONSULT - Pharmacy: Name: [facility] HOWARD : Dec Age: 43 Primary Care Provider: TRI ZAMORA PACT PURPLE Allergies/ADEs Patient has answered NKA Active problems - Computerized Problem List is the source for the followin. Abnormal findings diagnostic imaging of liver+biliary tract 2. Seasonal allergy 3. Chronic rhinitis 4. Exposure to Disaster, War and other Hostilities 5. Exposure to potentially hazardous substance 6. Pain of right knee region 7. Pain of left shoulder joint 8. Chronic post-traumatic stress disorder following combat 9. Traumatic brain injury with loss of consciousness 10. 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 Smoker 12. Other and unspecified injury to elbow, forearm, and wrist 13. Hypothyroidism (SNOMED CT 14957166) 14. SENSORINEURAL HEARING LOSS, ASYMMETRICAL 15. SUBJECTIVE TINNITUS 16. Concussion 17. Chronic low back pain (SNOMED CT 744572962) 18. Bereavement * 19. Acute Stress Disorder 20. Esophageal Reflux (GERD) SUBJECTIVE: Patient is a 43 y/o MALE [place] who was encountered by pharmacy clinic today for medication management. Pt was referred to [facility] for hyperlipidemia. Current Cholesterol Regimen: -none Today Reports -not interested in nutrition -I know I need to cut back on my red meats Active and Recently Outpatient Medications (including Supplies): Active Outpatient Medications Status 1) CETIRIZINE HCL 10MG TAB TAKE ONE TABLET BY MOUTH ONCE DAILY ACTIVE Indication: FOR ALLERGIC RHINITIS 2) DICLOFENAC NA 1% TOP GEL APPLY 2 GRAMS TO UPPER AND 4 GRAMS ACTIVE TO LOWER EXTREMITIES TOPICALLY FOUR TIMES DAILY NEEDED *DO NOT EXCEED 16 GRAMS DAILY TO ANY JOINT OF LOWER EXTREMITIES. DO NOT EXCEED 8 GRAMS DAILY TO ANY JOINT OF UPPER EXTREMITIES. DO NOT EXCEED TOTAL DOSE OF 32 GRAMS DAILY OVER ALL JOINTS. Indication: FOR PAIN/INFLAMMATION 3) IBUPROFEN 800MG TAB TAKE ONE TABLET BY MOUTH TWICE DAILY ACTIVE NEEDED Indication: FOR PAIN Allergies: Patient has answered NKA - Medication Reconciliation: [x] New patient full medication reconciliation completed, any differences listed above. 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 OBJECTIVE: BP: 128/80 (01/10/2024 08:18) Pulse: 64 (01/10/2024 08:18) Height: 76 in [193.0 cm] (01/10/2024 08:18) Weight: 254.2 lb [115.30 kg] (01/10/2024 08:18) BODY MASS INDEX - JAN 10, 2024@08:18:36 31.0 CHEM 7 TREND Collection DT Spec BUN NA K CL CO2 ANI GAP GLU 01/10/2024 09:21 PLASM 13 138 4.2 104 27 7 109 H 05/23/2023 12:42 PLASM 14 140 3.6 103 29 8 86 Collection DT Spec CREATI CA eGFR(CK 01/10/2024 09:21 PLASM 1.19 9.5 79 05/23/2023 12:42 PLASM 1.16 9.6 82 eCrCl: 100 Lipids: Collection DT Spec CHOL TRIG LDL HDL 04/15/2024 15:30 PLASM 270 H 186 H 192 H 41 01/10/2024 09:21 PLASM 245 H 116 180 H 42 05/23/2023 12:42 PLASM 235 H 145 157 H 49 05/17/2022 13:39 PLASM 225 H 114 148 H 54 03/03/2021 11:11 PLASM 220 H 84 148 H 55 LFT TREND Collection DT Spec TP ALB TBIL ALP ALT AST FIB-4 04/15/2024 15:30 PLASM 7.6 4.8 0.7 52 48 26 0.58 01/10/2024 09:21 PLASM 7.3 4.3 0.6 58 56 H 38 H 0.79 05/23/2023 12:42 PLASM 7.4 4.5 0.5 51 53 H 26 0.45 A1c trend: Lab A1c (last three) Collection DT Specimen Test Name Result Units Ref Range 01/10/2024 09:21 BLOOD !! HEMOGLOBIN A1C 4.8 % 4.0 - 5.6 05/23/2023 12:41 BLOOD !! HEMOGLOBIN A1C 5.0 % 4.0 - 5.6 Microalbumin/Creatinine Ratio (most recent): Other: 25OH-D 01/10/2024@0921 33.8 TSH: 3.33 (01/10/24 09:21) FOLATE 04/15/24 15:29 8.6 B12 05/23/23 12:41 248 MAGNESIUM ([id number]) 01/10/2024@0921 2.1 CBC TREND Collection DT Spec WBC RBC HGB HCT MCV MCH PLT 01/10/2024 09:21 BLOOD 5.7 5.13 15.7 45.6 88.9 30.6 265 05/23/2023 12:41 BLOOD 8.6 5.08 15.6 44.9 88.4 30.7 318 05/17/2022 13:39 BLOOD 6.7 4.85 14.8 43.7 90.1 30.5 267 04/25/2015 08:32 BLOOD 7.6 5.22 16.0 47.9 91.8 30.7 261 06/04/2014 08:19 BLOOD 5.7 5.21 16.2 46.4 89.1 31.1 271 ASSESSMENT/PLAN: #Hyperlipidemia Pt is a 43 y/o male with increasing LDL over the last several years. Value is now 191. TC of 270. Pt declines nutrition visit. He is open to medications. Given LDL elevation, in addition to chew tobacco, increased risk for stroke. ROBERTO ASCVD risk tool strongly recommends statin therapy in individuals with LDL >/= 190. Plan to initiate rosuvastatin 20mg w/repeat labs in ~8 weeks. Briefly reviewed potential ADRs and when to reach out to clinic with any concerns. ==== PLAN ==== * Medication changes: -INITIATE rosuvastatin 20mg po daily * Call clinic if any questions/concerns regarding regimen Patient states understanding of plan as above. Follow-up with pharmacy clinic: August Labs needed before next appt: yes, scheduled Total time for encounter (preparation, counseling/education, documentation, orders for labs/meds/consults/rtcs, care coordination): 30 minutes Suicide Screen: C-SSRS Screening [place]-Suicide Severity Rating Scale (C-SSRS Screener) 1. Over the past month, have you wished you were or wished you could go to sleep and not wake up? No 2. Over the past month, have you had any actual thoughts of killing yourself? No 3. Over the past month, have you been thinking about how you might do this? Response not required due to responses to other questions. 4. Over the past month, have you had these thoughts and had some intention of acting on them? Response not required due to responses to other questions. 5. Over the past month, have you started to work out or worked out the details of how to kill yourself? Response not required due to responses to other questions. 6. If yes, at any time in the past month did you intend to carry out this plan? Response not required due to responses to other questions. 7. In your lifetime, have you ever done anything, started to do anything, or prepared to do anything to end your life (for example, collected pills, obtained a gun, gave away valuables, went to the roof but didn't jump)? Yes 8. If YES, was this within the past 3 months? No PBM PharmD Pharmacotherapy Rem V12: PHARMACIST INTERVENTIONS: LIPID MANAGEMENT Medication Intervention(s) Initiate new medication Address adherence Medication monitoring or diagnostic evaluation (e.g., other labs, EKG) Medication reconciliation (changes to active VA and non-VA medication lists to reconcile differences) Changes to medication lists made Add or renew medication Suicide risk assessment, screening and/or education Suicide screening /es/ ASHLEY KENYON, PHARMD Clinical Pharmacist Practitioner Signed: 05/21/2024 15:51 ASHLEY KENYON [facility] May 21, 2024 03:10 PM PHARMACY CONSULT: LOCAL TITLE: CONSULT - Pharmacy STANDARD TITLE: PHARMACY CONSULT DATE OF NOTE: MAY 21, 2024@15:10 ENTRY DATE: MAY 21, 2024@09:46:40 AUTHOR: ASHLEY KENYON EXP COSIGNER: URGENCY: STATUS: COMPLETED CONSULT - Pharmacy Has ADDENDA Name: SALOME HOWARD : Dec Age: 43 Primary Care Provider: TRI ZAMORA PURPLE Allergies/ADEs Patient has answered NKA Active problems - Computerized Problem List is the source for the followin. Abnormal findings diagnostic imaging of liver+biliary tract 2. Seasonal allergy 3. Chronic rhinitis 4. Exposure to Disaster, War and other Hostilities 5. Exposure to potentially hazardous substance 6. Pain of right knee region 7. Pain of left shoulder joint 8. Chronic post-traumatic stress disorder following combat 9. Traumatic brain injury with loss of consciousness 10. 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 Smoker 12. Other and unspecified injury to elbow, forearm, and wrist 13. Hypothyroidism (SNOMED CT 79556930) 14. SENSORINEURAL HEARING LOSS, ASYMMETRICAL 15. SUBJECTIVE TINNITUS 16. Concussion 17. Chronic low back pain (SNOMED CT [id number]) 18. Bereavement * 19. Acute Stress Disorder 20. Esophageal Reflux (GERD) SUBJECTIVE: Patient is a 43 y/o MALE who was encountered by pharmacy clinic today for medication management. [facility] for hyperlipidemia. Current Cholesterol Regimen: -none Today Reports -not interested in nutrition -I know I need to cut back on my red meats Active and Recently Outpatient Medications (including Supplies): Active Outpatient Medications Status 1) CETIRIZINE HCL 10MG TAB TAKE ONE TABLET BY MOUTH ONCE DAILY ACTIVE Indication: FOR ALLERGIC RHINITIS 2) DICLOFENAC NA 1% TOP GEL APPLY 2 GRAMS TO UPPER AND 4 GRAMS ACTIVE TO LOWER EXTREMITIES TOPICALLY FOUR TIMES DAILY NEEDED *DO NOT EXCEED 16 GRAMS DAILY TO ANY JOINT OF LOWER EXTREMITIES. DO NOT EXCEED 8 GRAMS DAILY TO ANY JOINT OF UPPER EXTREMITIES. DO NOT EXCEED TOTAL DOSE OF 32 GRAMS DAILY OVER ALL JOINTS. Indication: FOR PAIN/INFLAMMATION 3) IBUPROFEN 800MG TAB TAKE ONE TABLET BY MOUTH TWICE DAILY ACTIVE NEEDED Indication: FOR PAIN Allergies: Patient has answered NKA - Medication Reconciliation: [x] New patient full medication reconciliation completed, any differences listed above. 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 OBJECTIVE: BP: 128/80 (01/10/2024 08:18) Pulse: 64 (01/10/2024 08:18) Height: 76 in [193.0 cm] (01/10/2024 08:18) Weight: 254.2 lb [115.30 kg] (01/10/2024 08:18) BODY MASS INDEX - JAN 10, 2024@08:18:36 31.0 CHEM 7 TREND Collection DT Spec BUN NA K CL CO2 ANI GAP GLU 01/10/2024 09:21 PLASM 13 138 4.2 104 27 7 109 H 05/23/2023 12:42 PLASM 14 140 3.6 103 29 8 86 Collection DT Spec CREATI CA eGFR(CK 01/10/2024 09:21 PLASM 1.19 9.5 79 05/23/2023 12:42 PLASM 1.16 9.6 82 eCrCl: 100 Lipids: Collection DT Spec CHOL TRIG LDL HDL 04/15/2024 15:30 PLASM 270 H 186 H 192 H 41 01/10/2024 09:21 PLASM 245 H 116 180 H 42 05/23/2023 12:42 PLASM 235 H 145 157 H 49 05/17/2022 13:39 PLASM 225 H 114 148 H 54 03/03/2021 11:11 PLASM 220 H 84 148 H 55 LFT TREND Collection DT Spec TP ALB TBIL ALP ALT AST FIB-4 04/15/2024 15:30 PLASM 7.6 4.8 0.7 52 48 26 0.58 01/10/2024 09:21 PLASM 7.3 4.3 0.6 58 56 H 38 H 0.79 05/23/2023 12:42 PLASM 7.4 4.5 0.5 51 53 H 26 0.45 A1c trend: Lab A1c (last three) Collection DT Specimen Test Name Result Units Ref Range 01/10/2024 09:21 BLOOD !! HEMOGLOBIN A1C 4.8 % 4.0 - 5.6 05/23/2023 12:41 BLOOD !! HEMOGLOBIN A1C 5.0 % 4.0 - 5.6 Microalbumin/Creatinine Ratio (most recent): Other: 25OH-D 01/10/2024@0921 33.8 TSH: 3.33 (01/10/24 09:21) FOLATE 04/15/24 15:29 8.6 B12 05/23/23 12:41 248 MAGNESIUM ([id number]) 01/10/2024@0921 2.1 CBC TREND Collection DT Spec WBC RBC HGB HCT MCV MCH PLT 01/10/2024 09:21 BLOOD 5.7 5.13 15.7 45.6 88.9 30.6 265 05/23/2023 12:41 BLOOD 8.6 5.08 15.6 44.9 88.4 30.7 318 05/17/2022 13:39 BLOOD 6.7 4.85 14.8 43.7 90.1 30.5 267 04/25/2015 08:32 BLOOD 7.6 5.22 16.0 47.9 91.8 30.7 261 06/04/2014 08:19 BLOOD 5.7 5.21 16.2 46.4 89.1 31.1 271 ASSESSMENT/PLAN: #Hyperlipidemia Pt is a 43 y/o male with increasing LDL over the last several years. Value is now 191. TC of 270. Pt declines nutrition visit. He is open to medications. Given LDL elevation, in addition to chew tobacco, increased risk for stroke. ROBERTO ASCVD risk tool strongly recommends statin therapy in individuals with LDL >/= 190. Plan to initiate rosuvastatin 20mg w/repeat labs in ~8 weeks. Briefly reviewed potential ADRs and when to reach out to clinic with any concerns. ==== PLAN ==== * Medication changes: -INITIATE rosuvastatin 20mg po daily * Call clinic if any questions/concerns regarding regimen Patient states understanding of plan as above. Follow-up with pharmacy clinic: August Labs needed before next appt: yes, scheduled Total time for encounter (preparation, counseling/education, documentation, orders for labs/meds/consults/rtcs, care coordination): 30 minutes Suicide Screen: C-SSRS Screening [place]-Suicide Severity Rating Scale (C-SSRS Screener) 1. Over the past month, have you wished you were or wished you could go to sleep and not wake up? No 2. Over the past month, have you had any actual thoughts of killing yourself? No 3. Over the past month, have you been thinking about how you might do this? Response not required due to responses to other questions. 4. Over the past month, have you had these thoughts and had some intention of acting on them? Response not required due to responses to other questions. 5. Over the past month, have you started to work out or worked out the details of how to kill yourself? Response not required due to responses to other questions. 6. If yes, at any time in the past month did you intend to carry out this plan? Response not required due to responses to other questions. 7. In your lifetime, have you ever done anything, started to do anything, or prepared to do anything to end your life (for example, collected pills, obtained a gun, gave away valuables, went to the roof but didn't jump)? Yes 8. If YES, was this within the past 3 months? No PBM PharmD Pharmacotherapy Rem V12: PHARMACIST INTERVENTIONS: LIPID MANAGEMENT Medication Intervention(s) Initiate new medication Address adherence Medication monitoring or diagnostic evaluation (e.g., other labs, EKG) Medication reconciliation (changes to active VA and non-VA medication lists to reconcile differences) Changes to medication lists made Add or renew medication Suicide risk assessment, screening and/or education Suicide screening /kristie/ ASHLEY KENYON PHARMD Clinical Pharmacist Practitioner Signed: 05/21/2024 15:51 05/21/2024 ADDENDUM STATUS: COMPLETED consult specifically asking for lipid management. t/w noted that upon documenting in the chart this has not yet been added to active problem list. have asked PCP to please add hyperlipidemia to active problem list /kristie/ ASHLEY KENYON PHARMD Clinical Pharmacist Practitioner Signed: 05/21/2024 15:52 Receipt Acknowledged By: * AWAITING SIGNATURE * TRI ZAMORA [facility]
--- OUTSIDE RECORDS SUMMARY | 2024-06-27 20:24 | XMS_ITS ---
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 Date/Time Encounter Type Encounter Description Reason Pro vider Source Jan 13, 2024 12:36 PM Outpatient Encounter ADMIN PAT ACTIVTIES (MASNONCT) IHE Encounter Template Text not used by [...] 20 appointments. The data comes from all [place] treatment facilities. Appointment Date/Time Appointment Type Appointme nt Facility Name Jan 24, 2024 09:00 AM AMBULATORY - MEDICINE [facility] Feb 07, 2024 07:15 AM AMBULATORY - NONE [facility] Mar 26, 2024 02:30 PM AMBULATORY - MEDICINE AZUL SALAZAR [facility] Apr 07, 2024 01:00 PM AMBULATORY - NONE [facility] Apr 15, 2024 03:30 PM AMBULATORY - NONE [facility] May 21, 2024 03:30 PM AMBULATORY - MEDICINE AZUL SALAZAR [facility] Jun 02, 2024 01:00 PM AMBULATORY - NONE [facility] Lab Results: +/- 30 days of the encounter This section includes the Chemistry and Hematology Lab Results on record with [place] for the patient. Radiology Reports and Pathology Reports are provided separately, in subsequent sections. Lab Results This section contains the Chemistry/Hematology Results that were resulted 30 days before or 30 daysafter the date of the Encounter. Date/Time Source Result Type Result - Unit Interpretation Reference Range Comment Jan 10, 2024 09:21 AM [facility] LIVER PROFILE Specimen Type: PLASMA Comment: , Tests performed on [employer] SN:[id number] (405). Ordering Provider: MATTHEW DASH Report Released Date/Time: Jan 10, 2024 08:46 AM Reporting Lab: [facility] [address] [facility] [address] Performing Lab: [facility] [address] [facility] [address] PROTEIN, TOTAL 7.3 g/dL 6.0-8.5 ALBUMIN 4.3 g/dL 3.2-5.0 BILIRUBIN, TOTAL 0.6 mg/dL 0.2-1.2 ALKALINE PHOSPHATASE 58 U/L 40-150 ALT(SGPT) 56 U/L H 7-52 AST(SGOT) 38 U/L H 5-34 FIB-4 SCORE 0.79 <2.67 Jan 10, 2024 09:21 AM [facility] CBC NO DIFF Specimen Type: BLOOD No comment entered. Ordering Provider: MATTHEW DASH Report Released Date/Time: Jan 10, 2024 08:46 AM Reporting Lab: [facility] [address] [facility] [address] Performing Lab: [facility] [address] [facility] [address] WBC 5.7 10*3/uL 4.5-11.0 RBC 5.13 10*6/uL 4.23-5.66 HGB 15.7 g/dL 12.8-17 HEMATOCRIT 45.6 39.2-50.4 MCV 88.9 fL 82-99 MCH 30.6 pg 26.2-32.6 MCHC 34.4 g/dL 30.8-35.1 PLT 265 10*3/uL 140-360 MPV 10.8 fL 9.2-12.4 RDW 12.1 12.0-16.0 Jan 10, 2024 09:21 AM [facility] P4 GLU,BUN,CREAT,LYTES,CA Specimen Type: PLASMA Comment: , Tests performed on [employer] SN:[id number] (405). Ordering Provider: MATTHEW DASH Report Released Date/Time: Jan 10, 2024 08:46 AM Reporting Lab: [facility] [address] [facility] [address] Performing Lab: [facility] [address] [facility] [address] UREA NITROGEN 13 mg/dL 7-25 SODIUM 138 mmol/L 135-145 POTASSIUM 4.2 mmol/L 3.5-5.0 CHLORIDE 104 mmol/L 100-110 CARBON DIOXIDE 27 mmol/L 20-30 ANION GAP 7 4-16 GLUCOSE 109 mg/dL H 65-100 CREATININE 1.19 mg/dL 0.50-1.50 CALCIUM 9.5 mg/dL 8.5-10.5 eGFR(CKD-EPI 2020) 79 mL/min Jan 10, 2024 09:21 AM [facility] LIPOPROTEIN CHOLESTEROL FRACT. PANEL Specimen Type: PLASMA Comment: , Tests performed on [employer] SN:[id number] (405). Ordering Provider: MATTHEW DASH Report Released Date/Time: Jan 10, 2024 08:46 AM Reporting [facility]: [facility] [address] [facility] [facility] [address] Performing Lab: [facility] [address] [facility] [address] CHOLESTEROL 245 mg/dL H 0-200 TRIGLYCERIDE 116 mg/dL 0-150 HDL CHOLESTEROL 42 mg/dL >40 LDL CHOLESTEROL (CALC) 180 mg/dL H 0-129 Jan 10, 2024 09:21 AM [facility] GLYCOHEMOGLOBIN (A1C ONLY) Specimen Type: BLOOD Comment: , Tests performed on [employer] [place] SN:[id number] (405) Values obtained from A1C measurements can vary. For typical A1C assays, a reported value of 7.0 could actually be between 6.72 and 7.28 if measured by a reference method. A reported value of 9.0 could actually be between 8.73 and 9.27. Ref: http://www.ng sp.org/CAPdat a.asp Ordering Provider: MATTHEW DASH Report Released Date/Time: Jan 10, 2024 08:46 AM Reporting Lab: [facility] [address] [facility] [facility] [address] Performing Lab: [facility] [address] [facility] [facility] [address] HEMOGLOBIN A1C 4.8 4.0-5.6 Jan 10, 2024 09:21 AM [facility] PSA (BUSINESS CASE ANALYST) Specimen Type: SERUM Comment: , Tests performed on [employer] SN:[id number] (405) TSH within normal limits. Reflex testing not required. Ordering Provider: MATTHEW DASH Report Released Date/Time: Jan 10, 2024 08:46 AM Reporting Lab: [facility] [address] [facility] [facility] [address] Performing Lab: [facility] [address] [facility] [facility] [address] PSA (BUSINESS CASE ANALYST) 1.30 ng/mL Jan 10, 2024 09:21 AM [facility] THYROID TESTING CASCADE Specimen Type: SERUM Comment: , Tests performed on [employer] SN:[id number] (405) TSH within normal limits. Reflex testing not required. Ordering Provider: MATTHEW DASH Report Released Date/Time: Jan 10, 2024 08:46 AM Reporting Lab: [facility] [address] [facility] [address] Performing Lab: [facility] [address] [facility] [address] TSH 3.33 u[IU]/mL 0.35-5.00 Jan 10, 2024 09:21 AM [facility] VIT D 25-OH([facility]) Specimen Type: SERUM Comment: , Tests performed on [employer] [place] SN:[id number] (405) TSH within normal limits. Reflex testing not required. Ordering Provider: MATTHEW DASH Report Released Date/Time: Jan 10, 2024 08:46 AM Reporting Lab: [facility] [address] [facility] [address] Performing Lab: [facility] [address] [facility] [facility] [address] VIT D 25-OH([facility]) 33.8 ng/mL 20.0-50.0 Jan 10, 2024 09:21 AM [facility] CB MAGNESIUM Specimen Type: PLASMA Comment: , Tests performed on [employer] Hi SN:[id number] (405). Ordering Provider: MATTHEW DASH Report Released Date/Time: Jan 10, 2024 09:14 AM Reporting Lab: [facility] [address] [facility] [facility] [address] Performing Lab: [facility] [address] [facility] [facility] [address] MAGNESIUM 2.1 mg/dL 1.6-2.6 Social History: Smoking Status (Most current) and Tobacco Use (All prior to encounter date) This section includes the most current, and the historical, smoking and tobacco- related health factors from the [place] facility where the Encounter took place. Current Smoking Status This section includes the most current smoking, or tobacco-related health factor, from the [place] facility where the Encounter took place. Date/Time Current Smoking Status Comment Uzma blancoy Jun 20, 2023 09:00 AM -BPR SMOKING DEP LOYMENT UNKNOWN [facility] Tobacco Use History This section includes a history of the smoking, or tobacco-related health factors, that were collected on or before the date of the Encounter. The data comes from the [place] facility where the Encounter took place. Date/Time Smoking Status/Tobacco Use Comment F acility Aug 08, 2010 12:30 PM LIFETIME NON-TOBACCO USER [facility] Radiology Reports: +/- 30 days of [...] the Encounter. The data comes from all [place] treatment facilities. Date/Time Radiology Report Provider Source Feb 07, 2024 07:15 AM ULTRASOUND RUQ (GB,LIVER,BILIARY): SALOME HOWARD [id number] -1980 M Ex Date: FEB 07, 2024@07:15 Req Phys: MATTHEW DASH Pat Loc: LIT PACT T (Req'g Loc) Img Loc: ULTRASOUND (OOS) Service: [place] [address] (Case [id number] COMPLETE) ULTRASOUND RUQ (GB,LIVER,BILIARY)(US Detailed) CPT:79826 Reason for Study: elevated LFts Clinical History: 43 Y M PMH hypercholesterolemia, elevated LFTs. ETOH use, PTSD, shoulder pain, knee pain, back pain, chronic rhinitis Report Status: Verified Date Reported: FEB 07, 2024 Date Verified: FEB 07, 2024 [employer] E-Sig:/ES/CESAR FISHMAN Report: Examination: Ultrasound abdomen and [...] REQUIRED Primary Interpreting Staff: CESAR FISHMAN, radiologist ([employer]) /fml CESAR FISHMAN [facility] Feb 07, 2024 07:15 AM ELASTOGRAPHY PAREN CHYMA (E.G., ORGAN): SALOME HOWARD [id number] -1980 M Ex Date: FEB 07, 2024@07:15 Req Phys: MATTHEW DASH Pat Loc: LIT PACT T (Req'g Loc) Img Loc: ULTRASOUND (OOS) Service: [place] [address] (Case [id number] COMPLETE) ELASTOGRAPHY PARENCHYMA (E.G., OR(US Detailed) CPT:31695 Reason for Study: elv lfts fatty liver Clinical History: 43 Y M PMH hypercholesterolemia, elevated LFTs. ETOH use, PTSD, shoulder pain, knee pain, back pain, chronic rhinitis Report Status: Verified Date Reported: Date Verified: FEB 10, 2024 [employer] E-Sig: Report: Examination: Ultrasound abdomen and liver [...] Interpreting Staff: CESAR FISHMAN, radiologist Verified by barge hand for CESAR FISHMAN /CESAR VUONG [facility] Feb 07, 2024 07:03 AM SHOULDER (ORTHO) 4 VIEWS: SALOME HOWARD [id number] -1980 Ex Date: FEB 07, 2024@07:03 Req Phys: HARDY,MATTHEW L Pat Loc: LIT VVC PACT T (Req'g Loc) Img Loc: XRAY (OOS) Service: [place] [address] (Case [id number] COMPLETE) SHOULDER (ORTHO) 4 VIEWS (RAD Detailed) CPT:97583 Proc Modifiers : LEFT Reason for Study: long standing shoulder pain Clinical History: Report Status: Verified Date Reported: FEB 07, 2024 Date Verified: FEB 07, 2024 [employer] E-Sig:/ES/CATHERINE PINEDA Report: Bilateral shoulders: COMPARISON: Left [...] Primary Interpreting Staff: CATHERINE PINEDA, RADIOLOGY ATTENDING ([employer]) /CATHERINE VEE [facility] Feb 07, 2024 07:03 AM KNEE 4 VIEWS (ORTH O): SALOME HOWARD [id number] -1980 M Exm Date: FEB 07, 2024@07:03 Req Phys: HARDY,MATTHEW L Pat Loc: LIT VVC PACT T (Req'g Loc) Img Loc: XRAY (OOS) Service: [place] [address] (Case [id number] COMPLETE) KNEE 4 VIEWS (ORTHO) (RAD Detailed) CPT:43225 Proc Modifiers : LEFT Reason for Study: knee pain Clinical History: pain walking or bending Report Status: Verified Date Reported: FEB 07, 2024 Date Verified: FEB 07, 2024 [employer] E-Sig:/ARON/CATHERNIE PINEDA Report: Bilateral knees: COMPARISON: Right knee [...] Primary Interpreting Staff: CATHERINE PINEDA, RADIOLOGY ATTENDING ([employer]) /CATHERINE VEE [facility] Feb 07, 2024 07:03 AM SHOULDER (ORTHO) 4 VIEWS: SALOME HOWARD [id number] -1980 M Exm Date: FEB 07, 2024@07:03 Req Phys: MATTHEW DASH Pat Loc: [facility] PACT T (Req'g Loc) Img Loc: XRAY (OOS) Service: [place] [address] (Case [id number] COMPLETE) SHOULDER (ORTHO) 4 VIEWS (RAD Detailed) CPT:73956 Proc Modifiers : RIGHT Reason for Study: Long standing shoulder pain Clinical History: Report Status: Verified Date Reported: FEB 07, 2024 Date Verified: FEB 07, 2024 [employer] E-Sig:/ARON/CATHERINE PINEDA Report: Bilateral shoulders: COMPARISON: Left shoulder [...] Primary Interpreting Staff: CATHERINE PINEDA, RADIOLOGY ATTENDING ([employer] Leader) /CATHERINE VEE [facility] Feb 07, 2024 07:03 AM KNEE 4 VIEWS (ORTH O): ANITASALOME [id number] -1980 M Exm Date: FEB 07, 2024@07:03 Req Phys: MATTHEW DASH Pat Loc: [facility] PACT T (Req'g Loc) Img Loc: XRAY (OOS) Service: [place] [address] (Case [id number] COMPLETE) KNEE 4 VIEWS (ORTHO) (RAD Detailed) CPT:04581 Proc Modifiers : RIGHT Reason for Study: knee pain Clinical History: pain walking bending Report Status: Verified Date Reported: FEB 07, 2024 Date Verified: FEB 07, 2024 [employer] E-Sig:/ES/CATHERINE PINEDA Report: Bilateral knees: COMPARISON: Right [...] Primary Interpreting Staff: CATHERINE PINEDA, RADIOLOGY ATTENDING ([employer]) /CATHERINE VEE [facility] Encounter Notes: All associated encounter notes This section contains the clinical notes associated to the Encounter. Date/Time Encounter Note(s) Provider Source Jan 13, 2024 12:36 PM LETTERS: LOCAL TITLE: LETTER TO PATIENT ATTEMPT TO CONTACT STANDARD TITLE: LETTERS DATE OF NOTE: JAN 13, 2024@12:36 ENTRY DATE: JAN 13, 2024@12:36:29 AUTHOR: ORA ZAMBRANO JR EXP COSIGNER: URGENCY: STATUS: COMPLETED [facility] [address] [place] [address] JAN 13, 2024 SALOME HOWARD [address] [address] Dear SALOME HOWARD, [facility] [place] is trying to reach you to schedule an appointment. If you have already been in contact with the clinic and scheduled an appointment you may disregard this letter. If we do not hear from you within 14 days, we will assume you no longer desire an appointment. Please call one of the numbers provided below so that we may find a suitable date for you: Service: Chiropractor Direct: [phone] Ext: [phone] Toll Free: [phone] Ext: [phone] We look forward to hearing from you. Sincerely, Clinical Operations ORA ZAMBRANO JR [facility]
--- OUTSIDE RECORDS SUMMARY | 2024-06-27 20:24 | XMS_ITS | Encounter Summary ---
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 Date/Time Encounter Type Encounter Description Reason Provider Source Jan 10, 2024 08:30 AM OFFICE O/P EST MOD 30 MIN PRIMARY CARE/MEDICINE ICD-10-CM M54.50 Low back pain, unspecified HARDY,MATTHEW L IHE Encounter Template Text not used by [facility] Assessments - Encounter Diagnoses This section includes the primary and secondary diagnoses documented for the Encounter. Date/Time Primary/Secondary Diagnosis Diagnosis Name Provider Source Jan 13, 2024 11:07 AM PRIMARY Low back pain, unspecified MATTHEW DASH Carlos [facility] Jan 13, 2024 11:07 AM SECONDARY Chronic rhinitis MATTHEW DASH Carlos [facility] Jan 13, 2024 11:07 AM SECONDARY Hypothyroidism, unspecified MATTHEW DASH Carlos [facility] Jan 13, 2024 11:07 AM SECONDARY Pain in left shoulder MATTHEW DASH [facility] Jan 13, 2024 11:07 AM SECONDARY Pain in right knee HARDYMATTHEW Ventura [facility] Plan of Treatment: Future Appointments (+ 6 months) and Future Tests (+/- 45 days) The Plan of Treatment section includes future care activities for the patient from [facility]. This section includes future appointments and future orders which are active, pending or scheduled. Future Appointments This section includes appointments that were scheduled to occur 6 months from the date of the Encounter, up to a maximum of 20 appointments. The data comes from all [place] treatment facilities. Appointment Date/Time Appointment Type Appointme nt Facility Name Jan 24, 2024 09:00 AM AMBULATORY - MEDICINE [facility] Feb 07, 2024 07:15 AM AMBULATORY - NONE [facility] [place] [facility] Mar 26, 2024 02:30 PM AMBULATORY - MEDICINE AZUL SALAZAR [facility] Apr 07, 2024 01:00 PM AMBULATORY - NONE [place] [place] [facility] Apr 15, 2024 03:30 PM AMBULATORY - NONE [facility] May 21, 2024 03:30 PM AMBULATORY - MEDICINE AZUL SALAZAR [facility] Jun 02, 2024 01:00 PM AMBULATORY - NONE [place] [place] [facility] Lab Results: +/- 30 days of the encounter This section includes the Chemistry and Hematology Lab Results on record with [place] for the patient. Radiology Reports and Pathology Reports are provided separately, in subsequent sections. Lab Results This section contains the Chemistry/Hematology Results that were resulted 30 days before or 30 daysafter the date of the Encounter. Date/Time Source Result Type Result - Unit Interpretation Reference Range Comment Jan 10, 2024 09:21 AM [facility] LIVER PROFILE Specimen Type: PLASMA Comment: , Tests performed on [employer] SN:[id number] (405). Ordering Provider: MATTHEW DASH Report Released Date/Time: Jan 10, 2024 08:46 AM Reporting Lab: [facility] [address] [address] Performing Lab: [facility] [address] [address] PROTEIN, TOTAL 7.3 g/dL 6.0-8.5 ALBUMIN 4.3 g/dL 3.2-5.0 BILIRUBIN, TOTAL 0.6 mg/dL 0.2-1.2 ALKALINE PHOSPHATASE 58 U/L 40-150 ALT(SGPT) 56 U/L H 7-52 AST(SGOT) 38 U/L H 5-34 FIB-4 SCORE 0.79 <2.67 Jan 10, 2024 09:21 AM [facility] CBC NO DIFF Specimen Type: BLOOD No comment entered. Ordering Provider: MATTHEW DASH Report Released Date/Time: Jan 10, 2024 08:46 AM Reporting Lab: [facility] [address] [address] Performing Lab: [facility] [address] [address] WBC 5.7 10*3/uL 4.5-11.0 RBC 5.13 10*6/uL 4.23-5.66 HGB 15.7 g/dL 12.8-17 HEMATOCRIT 45.6 39.2-50.4 MCV 88.9 fL 82-99 MCH 30.6 pg 26.2-32.6 MCHC 34.4 g/dL 30.8-35.1 PLT 265 10*3/uL 140-360 MPV 10.8 fL 9.2-12.4 RDW 12.1 12.0-16.0 Jan 10, 2024 09:21 AM [facility] CB P4 GLU,BUN,CREAT,LYTES,CA Specimen Type: PLASMA Comment: , Tests performed on [employer] Hi SN:[id number] (405). Ordering Provider: MATTHEW DASH Report Released Date/Time: Jan 10, 2024 08:46 AM Reporting Lab: [facility] [address] [phone] Performing Lab: [facility] [address] [facility] [address] UREA NITROGEN 13 mg/dL 7-25 SODIUM 138 mmol/L 135-145 POTASSIUM 4.2 mmol/L 3.5-5.0 CHLORIDE 104 mmol/L 100-110 CARBON DIOXIDE 27 mmol/L 20-30 ANION GAP 7 4-16 GLUCOSE 109 mg/dL H 65-100 CREATININE 1.19 mg/dL 0.50-1.50 CALCIUM 9.5 mg/dL 8.5-10.5 eGFR(CKD-EPI 2020) 79 mL/min Jan 10, 2024 09:21 AM [facility] LIPOPROTEIN CHOLESTEROL FRACT. PANEL Specimen Type: PLASMA Comment: , Tests performed on [employer] Hi SN:[id number] (405). Ordering Provider: MATTHEW DASH Report Released Date/Time: Jan 10, 2024 08:46 AM Reporting Lab: [facility] [address] [facility] [address] Performing Lab: [address] [address] CHOLESTEROL 245 mg/dL H 0-200 TRIGLYCERIDE 116 mg/dL 0-150 HDL CHOLESTEROL 42 mg/dL >40 LDL CHOLESTEROL (CALC) 180 mg/dL H 0-129 Jan 10, 2024 09:21 AM [facility] GLYCOHEMOGLOBIN (A1C ONLY) Specimen Type: BLOOD Comment: , Tests performed on [employer] Gomez SN:[id number] (405) Values obtained from A1C measurements can vary. For typical A1C assays, a reported value of 7.0 could actually be between 6.72 and 7.28 if measured by a reference method. A reported value of 9.0 could actually be between 8.73 and 9.27. Ref: http://www.ng sp.org/CAPdat a.asp Ordering Provider: MATTHEW DASH Report Released Date/Time: Jan 10, 2024 08:46 AM Reporting Lab: [facility] [address] [facility] [address] Performing Lab: [facility] [address] [facility] [address] HEMOGLOBIN A1C 4.8 4.0-5.6 Jan 10, 2024 09:21 AM [facility] PSA (CORN SHREDDER) Specimen Type: SERUM Comment: , Tests performed on [employer] Gomez SN:[id number] (405) TSH within normal limits. Reflex testing not required. Ordering Provider: MATTHEW DASH Report Released Date/Time: Jan 10, 2024 08:46 AM Reporting Lab: [facility] [address] [facility] [address] Performing Lab: [facility] [address] [facility] [address] PSA (CORN SHREDDER) 1.30 ng/mL Jan 10, 2024 09:21 AM [facility] THYROID TESTING CASCADE Specimen Type: SERUM Comment: , Tests performed on [employer] Gomez SN:[id number] (405) TSH within normal limits. Reflex testing not required. Ordering Provider: MATTHEW DASH Report Released Date/Time: Jan 10, 2024 08:46 AM Reporting Lab: [facility] [address] [facility] [address] Performing Lab: [facility] [address] [facility] [address] TSH 3.33 u[IU]/mL 0.35-5.00 Jan 10, 2024 09:21 AM [facility] VIT D 25-OH(WRJ) Specimen Type: SERUM Comment: , Tests performed on [employer] Gomez SN:[id number] (405) TSH within normal limits. Reflex testing not required. Ordering Provider: MATTHEW DASH Report Released Date/Time: Jan 10, 2024 08:46 AM Reporting Lab: [facility] [address] [facility] [address] Performing Lab: [facility] [address] [facility] [address] VIT D 25-OH(WRJ) 33.8 ng/mL 20.0-50.0 Jan 10, 2024 09:21 AM [facility] MAGNESIUM Specimen Type: PLASMA Comment: , Tests performed on [employer] Hi SN:[id number] (405). Ordering Provider: MATTHEW DASH Report Released Date/Time: Jan 10, 2024 09:14 AM Reporting Lab: [facility] [address] [facility] [address] Performing Lab: [facility] [address] [place] [address] MAGNESIUM 2.1 mg/dL 1.6-2.6 Vital Signs: All taken on the encounter date This section contains inpatient and outpatient Vital Signs collected on the date of the Encounter. Date/Time Temperature Pulse Blood Pressure Respiratory Rate SP02 Pain Height Weight Body Mass Index Source Jan 10, 2024 08:18 AM 96.9 64 128/80 97 0 76 254.2 31 [facility] Social History: Smoking Status (Most current) [...] 09:00 AM AH-BPR SMOKING DEP LOYMENT UNKNOWN [facility] Tobacco Use History This section includes a history of the smoking, or tobacco-related health factors, that were collected on or before the date of the Encounter. The data comes from the [place] facility where the Encounter took place. Date/Time Smoking Status/Tobacco Use Comment F acility May 23, 2023 11:30 AM VA-TOBACCO USE > 1 5 LESS THAN 30 YEARS [facility] May 23, 2023 11:30 AM VA-TOBACCO USE ADVICE [facility] May 23, 2023 11:30 AM VA-TOBACCO USE MEDIA SALES CONSULTANT NO [facility] May 23, 2023 11:30 AM VA-TOBACCO USE MED NO [facility] May 23, 2023 11:30 AM VA-TOBACCO USE WI 30 MIN OF WAKEUP [facility] May 23, 2023 11:30 AM VA-TOBACCO USER EVERY DAY [facility] May 17, 2022 01:00 PM VA-TOBACCO FORMER USER [facility] May 17, 2022 01:00 PM VA-TOBACCO QUIT 5 TO < 15 YRS [facility] Mar 03, 2021 10:00 AM VA-TOBACCO NEVER USED [facility] Aug 01, 2005 09:00 AM CURRENT SMOKER 1/4-1/2 pack a day [facility] Aug 01, 2005 09:00 AM LIFETIME NON-TOBACCO USER [facility] Aug 01, 2005 09:00 AM QUIT TOBACCO USE 1 -7 YEARS AGO [facility] Radiology Reports: +/- 30 days of [...] the Encounter. The data comes from all [place] treatment facilities. Date/Time Radiology Report Provider Source Feb 07, 2024 07:15 AM ULTRASOUND RUQ (GB,LIVER,BILIARY): ANITASALOME [id number] -1980 M Exm Date: FEB 07, 2024@07:15 Req Phys: MATTHEW DASH Pat Loc: LIT PACT T (Req'g Loc) Img Loc: ULTRASOUND (OOS) Service: [place] [address] (Case [id number] COMPLETE) ULTRASOUND RUQ (GB,LIVER,BILIARY)(US Detailed) CPT:76710 Reason for Study: elevated LFts Clinical History: 43 Y M PMH hypercholesterolemia, elevated LFTs. ETOH use, PTSD, shoulder pain, knee pain, back pain, chronic rhinitis Report Status: Verified Date Reported: FEB 07, 2024 Date Verified: FEB 07, 2024 Clinic Office Coordinator E-Sig:/ES/CESAR FISHMAN Report: Examination: Ultrasound abdomen and [...] REQUIRED Primary Interpreting Staff: CESAR FISHMAN, radiologist (Clinic Office Coordinator) /fml CESAR FISHMAN [facility] Feb 07, 2024 07:15 AM ELASTOGRAPHY PAREN CHYMA (E.G., ORGAN): SALOME HOWARD [id number] -1980 M Ex Date: FEB 07, 2024@07:15 Req Phys: MATTHEW DASH Pat Loc: LIT PACT T (Req'g Loc) Img Loc: ULTRASOUND (OOS) Service: [place] [address] (Case [id number] COMPLETE) ELASTOGRAPHY PARENCHYMA (E.G., OR(US Detailed) CPT:65801 Reason for Study: elv lfts fatty liver Clinical History: 43 Y M PMH hypercholesterolemia, elevated LFTs. ETOH use, PTSD, shoulder pain, knee pain, back pain, chronic rhinitis Report Status: Verified Date Reported: Date Verified: FEB 10, 2024 Clinic Office Coordinator E-Sig: Report: Examination: Ultrasound abdomen and liver [...] Interpreting Staff: CESAR FISHMAN, radiologist Verified by heat engineering teacher for CESAR FISHMAN /[facility] Feb 07, 2024 07:03 AM SHOULDER (ORTHO) 4 VIEWS: SALOME HOWARD [id number] -1980 M Exm Date: FEB 07, 2024@07:03 Req Phys: HARDY,MATTHEW L Pat Loc: LIT VVC PACT T (Req'g Loc) Img Loc: XRAY (OOS) Service: [place] [address] (Case [id number] COMPLETE) SHOULDER (ORTHO) 4 VIEWS (RAD Detailed) CPT:23470 Proc Modifiers : LEFT Reason for Study: long standing shoulder pain Clinical History: Report Status: Verified Date Reported: FEB 07, 2024 Date Verified: FEB 07, 2024 Clinic Office Coordinator E-Sig:/ES/CATHERINE PINEDA Report: Bilateral shoulders: COMPARISON: Left [...] Primary Interpreting Staff: CATHERINE PINEDA, RADIOLOGY ATTENDING (Clinic Office Coordinator) /CATHERINE VEE [facility] Feb 07, 2024 07:03 AM KNEE 4 VIEWS (ORTH O): SALOME HOWARD [id number] -1980 M Exm Date: FEB 07, 2024@07:03 Req Phys: HARDY,MATTHEW L Pat Loc: LIT VVC PACT T (Req'g Loc) Img Loc: XRAY (OOS) Service: [place] [address] (Case [id number] COMPLETE) KNEE 4 VIEWS (ORTHO) (RAD Detailed) CPT:61599 Proc Modifiers : LEFT Reason for Study: knee pain Clinical History: pain walking or bending Report Status: Verified Date Reported: FEB 07, 2024 Date Verified: FEB 07, 2024 Clinic Office Coordinator E-Sig:/ES/CATHERINE PINEDA Report: Bilateral knees: COMPARISON: Right [...] Primary Interpreting Staff: CATHERINE PINEDA, RADIOLOGY ATTENDING (Clinic Office Coordinator) /CATHERINE VEE [facility] Feb 07, 2024 07:03 AM SHOULDER (ORTHO) 4 VIEWS: SALOME HOWARD [id number] -1980 M Exm Date: FEB 07, 2024@07:03 Req Phys: HARDY,MATTHEW L Pat Loc: [facility] PACT T (Req'g Loc) Img Loc: XRAY (OOS) Service: [place] [address] (Case [id number] COMPLETE) SHOULDER (ORTHO) 4 VIEWS (RAD Detailed) CPT:14426 Proc Modifiers : RIGHT Reason for Study: Long standing shoulder pain Clinical History: Report Status: Verified Date Reported: FEB 07, 2024 Date Verified: FEB 07, 2024 Clinic Office Coordinator E-Sig:/KRISTIE/CATHERINE PINEDA Report: Bilateral shoulders: COMPARISON: Left shoulder [...] Primary Interpreting Staff: CATHERINE PINEDA, RADIOLOGY ATTENDING (Clinic Office Coordinator) /CATHERINE VEE [facility] Feb 07, 2024 07:03 AM KNEE 4 VIEWS (ORTH O): SALOME HOWARD JAG [id number] -1980 M Exm Date: FEB 07, 2024@07:03 Req Phys: HARDY,MATTHEW L Pat Loc: [facility] PACT T (Req'g Loc) Img Loc: XRAY (OOS) Service: [place] [address] (Case [id number] COMPLETE) KNEE 4 VIEWS (ORTHO) (RAD Detailed) CPT:52750 Proc Modifiers : RIGHT Reason for Study: knee pain Clinical History: pain walking bending Report Status: Verified Date Reported: FEB 07, 2024 Date Verified: FEB 07, 2024 Clinic Office Coordinator E-Sig:/ES/CATHERINE PINEDA Report: Bilateral knees: COMPARISON: Right [...] Primary Interpreting Staff: CATHERINE PINEDA, RADIOLOGY ATTENDING (Clinic Office Coordinator) /CATHERINE VEE [facility] Encounter Notes: All associated encounter notes This section contains the clinical notes associated to the Encounter. Date/Time Encounter Note(s) Provider Source Jan 10, 2024 08:23 AM PRIMARY CARE NOTE: LOCAL TITLE: Primary Care Clinic Note STANDARD TITLE: PRIMARY CARE NOTE DATE OF NOTE: JAN 10, 2024@08:23 ENTRY DATE: JAN 10, 2024@08:23:44 AUTHOR: MATTHEW DASH EXP COSIGNER: URGENCY: STATUS: COMPLETED Primary Care Clinic Note Has ADDENDA CC:43 MALE here for annual exam I called 01/13/24 with lab results. He will go to [facility] for liver u/s and labs- Hep b & C screen and iron studies. Discussed again reducing alcohol. Recheck FFT and CHO prior to [facility] apt in Mar - consider statin ASSES/PLAN - 43 Y M PMH hypercholesterolemia, elevated LFTs. ETOH use, PTSD, shoulder pain, knee pain, back pain, chronic rhinitis # MAYERS/chest tightness- PFTs normal ECG ec 2022 T wave abnormality consider inferior ischemia - stress echo Jul 01 2023 normal - still gets MAYERS and chest tightness on exertion # history hypothyroidism with normal levels while off meds - - TSH 3.33 today #elevated cholesterol panel a bit elevated last year December 10 2023 CHOLESTEROL 245 H mg/dL 0 - 200 TRIGLYCERIDE 116 mg/dL 0 - 150 HDL CHOLESTEROL 42 mg/dL Ref: >=40 LDL CHOLESTEROL (CALC) 180 H mg/dL 0 - 129 Comments: # Left shoulder pain- doing better Longstanding shoulder pain since service. Had several traumatic events, and since then has not been able to lift well above his head. MRI negative for full thickness tear. 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 He would like ORtho referral for evaluation/consideration of joint injection. Xrays ordered per protocol. MRI 03/21/21 at [facility]: no full thickness rotator cuff tear, tendon retraction or muscle atrophy. Findings consistent with tendinosis involving portions of the supraspinatus and infraspinatus tendons. Mild subacromial/subdeltoid bursitis. - PT here with Juhi pain much improved - Continue Diclofenac PRN # R shoulder pain- will start PT stretches and call if no improvment # PTSD with depression and anxiety- good No suicidal thoughts. Improved symptoms on Bupropion. - self stopped buprenorphine- will resume - discussed duloxetine 30 mg f/u 2 weeks may increase ( may also help with pain) however we decided to go with the buporion for addition of smoking cessation- may need to taper off pending liver U/S or if LFTs worsen - Not interested in referral at this time. # Tobacco Use Disorder Chewing tobacco. We discussed the harms and offered counseling/support. He is not interested in quitting at this time. Does not want nicotine replacement. - buprpion 150 mg q AM may increase to twice daily after 7 days if needed # Elevated BP without diagnosis of HTN 128/80 today Will have B/P cuff large size mailed to him he agrees to check a few times a week - have not in a while will resume # Lower back pain Chronic x many years. Has not improved on conservative treatment including Ibuprofen TID. No associated weakness. Indication for imaging is many years of LBP and evaluation for injections. No incontinence, weakness, fevers, chills, injection drug use. - Lumbar MRI done 06/25/22 at [facility] still no records will request , xrays from 2020 in viewer # chronic rhinitis/seasonal allergies[facility] #Health Care Maint: Patient Education - RTC -phone in Mar first HPI:In collections for cardiac stress test = OCC approved not paid - provided OCC number and message to Constance SHANNON who left message at [facility] Shoulders are bothering him still right is getting worse- went to PT helped still doing PT exercises L knee now bothering in addtion to right, knees are painfull if he is walking or bending or in a position too long and gets up feels knee popping. Pain is sharp at times other times it aches has not been using diconefec, has been using ice and heat help some. Had difficulty remembering to take pills- pill box provided discussed importance of not self stopping especialliy the antidepressants- discussed routine to remember Discussed decreaseing alcohol trying to quit tobacco- has 7 month old son ALLERGIES: Patient has answered NKA PMH: Active problems - Computerized Problem List is the source for the followin. Seasonal allergy 2. Chronic rhinitis 3. Exposure to Disaster, War and other Hostilities 4. Exposure to potentially hazardous substance 5. Pain of right knee region 6. Pain of left shoulder joint 7. Chronic post-traumatic stress disorder following combat 8. Traumatic brain injury with loss of consciousness 9. 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 Smoker 11. Other and unspecified injury to elbow, forearm, and wrist 12. Hypothyroidism (SNOMED CT 40431874) 13. SENSORINEURAL HEARING LOSS, ASYMMETRICAL 14. SUBJECTIVE TINNITUS 15. Concussion 16. Chronic low back pain (SNOMED CT 648759663) 17. Bereavement * 18. Acute Stress Disorder 19. 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 [place] and [place] HABITS: recreational drugs: none Tobacco: chewing- couple tins per week 20 years ETOH: 3-4 drinks 2-3 times per week , > 6 drinks monthly Sexual history:(active, abuse,impotence)active Immunizations: flu today Bowel screening: no fm hx Prostate screenin.31 Jan 2024 Diet/Exercise: better now than it used to be, walks a mile couple times a week, active hikes hunts Seatbelt use: y Smoke detectors:y Eye care: [facility] [place] Dental care: SURGICAL HISTORY: Family History: GF heart valve / blood clot also fathers cousin CVA during surgery for same 2 sisters healthy Mother - 62 healthy Father 64 no issues he is aware of 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 to heat or cold - headache, visual changes (x hallucinations), dysphagia, change in hearing - chest pain or pressure, arm/jaw/neck pain with exertion - SOB, MAYERS, epistaxis, cough, sore throat - changes in skin, hair, nails - abd pain, nausea, emesis, diarrhea, constipation,BRBPR, melena - dysuria, hematuria, frequency, incontinence - rash, +arthralgias, +myalgias, -numbness, seizures, paresthesias - LE swelling - Depression PYSICAL EXAM: BP:128/80 (01/10/2024 08:18) HR:64 (01/10/2024 08:18) WT:254.2 lb [115.30 kg] (01/10/2024 08:18) HT:76 in [193.0 cm] (01/10/2024 08:18) BMI:BODY MASS INDEX - JAN 10, 2024@08:18:36 31.0 Pain: /10 General- Well-appearing, no apparent distress. Cardiovascular:RRR, S1,S2, no m/g/r, PMI non-displaced Respiratory: non-labored breathing, clear A & P Abdomen: abdomen soft, nontender Skin:Warm and dry. Extremities/feet: (-) edema Musculoskeletal: normal gait Neurological:Alert, oriented X3 Hepatitis B Serology/Immunization: The patient declines to have HBV serology done. Reason: low risk Hepatitis C Testing: Patient declines HCV lab test. Reason: low risk-- decided to est with elevated LFTs Alcohol Use Screen (AUDIT-C): Alcohol Screen: SCREEN FOR ALCOHOL (AUDIT-C) An alcohol screening test (AUDIT-C) was positive (score=6). 1. How often did you have a drink containing alcohol in the past year? Consider a drink to be a 12 ounce can or bottle of regular beer, 8 ounces of malt liquor, a 5 ounce glass of table wine, or a 1.5 ounce shot of liquor (like scotch, gin, or vodka). Two to three times per week 2. How many drinks containing alcohol did you have on a typical day when you were drinking in the past year? Three or four drinks 3. How often did you have six or more drinks on one occasion in the past year? Monthly Medication Reconciliation: Perform Medication Reconciliation JLV Link Data on this list may not be complete. Please check JLV. Allergies/ADRs (Tool #5) FACILITY ALLERGY/ADR -------- No Remote Allergy/ADR Data available for this patient VERNA SALAZAR [facility] No Known Allergies Med Recon [facility] (Tool #1) INCLUDED IN THIS LIST: Alphabetical list of active outpatient prescriptions dispensed from this [place] (local) and dispensed from another VA or DoD facility (remote) as well as inpatient orders (local pending and active), local clinic medications, locally documented non-VA medications, and local prescriptions that have or been discontinued in the past 90 days. Non-VA Meds Last Documented On: May 23, 2023 NOTE The display of VA prescriptions dispensed from another VA or DoD facility (remote) is limited to active outpatient prescription entries matched to National Drug File at the originating site and may not include some items such as investigational drugs, compounds, etc. NOT INCLUDED IN THIS LIST: Medications self-entered by the patient into personal health records (i.e. [employer]) are NOT included in this list. Non-VA medications documented outside this MA, remote inpatient orders (regardless of status) and remote clinic medications are NOT included in this list. The patient and provider must always discuss medications the patient is taking, regardless of where the medication was dispensed or obtained. Non-VA MAGNESIUM OXIDE TAB TAKE BY MOUTH Patient wants to buy from Non-VA pharmacy. SUPPLIES Comments: The patient's Essential Medication List for Review was used for reconciliation to address additions, deletions, and changes as reported by the patient/caregiver. The patient/caregiver indicates that medications are being taken as documented as described above. The patient/caregiver maintains their own up to date medication list. Was medication education provided for new medications or changes to medications? (including medication name, dose, route, reason for use, and potential side effects). Yes. Verbal education was provided to patient/caregiver and patient/caregiver verbalized understanding. Pneumococcal Conjugate Vaccine (PCV15/PCV20): Refuses PCV vaccine Immunization: PNEUMOCOCCAL CONJUGATE, UNSPECIFIED FORMULATION Refusal Reason: PATIENT DECISION Patient refuses all immunization(s) in the PneumoPCV group Date Documented: 01/10/24 09:10 /dayana DASH APRN Signed: 01/13/2024 11:07 02/08/2024 ADDENDUM STATUS: COMPLETED RTC phone placed to discuss US and xrays- MUSKET and raffi letter to schedule need to have labs done need MRI abdomen attempted to call 02/17/24 message left /dayana DASH APRN Signed: 02/17/2024 15:12 02/25/2024 ADDENDUM STATUS: COMPLETED attempted to call again 02/25/24 message left to return call /dayana DASH APRN Signed: 02/25/2024 16:00 [facility] Jan 10, 2024 08:20 AM PRIMARY CARE [place] EVALUATION NOTE: LOCAL TITLE: Preventive Health Annual Review STANDARD TITLE: PRIMARY CARE ANNUAL EVALUATION NOTE DATE OF NOTE: JAN 10, 2024@08:20 ENTRY DATE: JAN 10, 2024@08:21:01 AUTHOR: KASIE GALLEGOS EXP COSIGNER: URGENCY: STATUS: COMPLETED Alcohol Use Screen (AUDIT-C): Alcohol Screen: SCREEN FOR ALCOHOL (AUDIT-C) An alcohol screening test (AUDIT-C) was negative (score=4). 1. How often did you have a drink containing alcohol in the past year? Consider a drink to be a 12 ounce can or bottle of regular beer, 8 ounces of malt liquor, a 5 ounce glass of table wine, or a 1.5 ounce shot of liquor (like scotch, gin, or vodka). Two to three times per week 2. How many drinks containing alcohol did you have on a typical day when you were drinking in the past year? Three or four drinks 3. How often did you have six or more drinks on one occasion in the past year? Deedee /kristie/ KASIE GALLEGOS Health Community Service Specialist Signed: 01/10/2024 08:21 KASIE GALLEGOS [facility]
--- OUTSIDE RECORDS SUMMARY | 2024-06-27 20:24 | XMS_ITS ---
Author Name [facility] [place] [facility] [facility] [place] Address [address] [place] [address] Care Team Providers Care Motor Man Name Role Phone DE LA VEGA RADHA [...] TRICA RE DODA Apr 07, 2012 DODA [id number] [facility] [place] ER PATIENT [facility] 2018 RESER VE SELEC T Jun 03, 2017 [id number] [phone] ANITAPET ER PATIENT Selected Encounter This section includes the information on record at [place] for the Encounter. Date/Time Encounter Type Encounter Description Reason Pro vider Source Sep 04, 2023 03:08 PM Outpatient Encounter PRIMARY CARE/MEDICINE IHE Encounter Template Text not used by [place] Plan of Treatment: Future Appointments (+ 6 [...] 20 appointments. The data comes from all [place] treatment facilities. Appointment Date/Time Appointment Type Appointme nt Facility Name Jan 10, 2024 08:30 AM AMBULATORY - NONE [facility] Jan 10, 2024 09:15 AM AMBULATORY - NONE [facility] Jan 24, 2024 09:00 AM AMBULATORY - MEDICINE [facility] Feb 07, 2024 07:15 AM AMBULATORY - NONE [facility] Social History: Smoking Status (Most current) and Tobacco Use (All prior to encounter date) This section includes the most current, and the historical, smoking and tobacco- related health factors from the [place] facility where the Encounter took place. Current Smoking Status This section includes the most current smoking, or tobacco-related health factor, from the [place] facility where the Encounter took place. Date/Time Current Smoking Status Comment Uzma blancokae Jun 20, 2023 09:00 AM AH-BPR SMOKING DEP LOYMENT UNKNOWN [facility] Tobacco Use History This section includes a history of the smoking, or tobacco-related health factors, that were collected on or before the date of the Encounter. The data comes from the [place] facility where the Encounter took place. Date/Time Smoking Status/Tobacco Use Comment F acility Aug 08, 2010 12:30 PM LIFETIME NON-TOBACCO USER [facility] Encounter Notes: All associated encounter notes This section contains the clinical notes associated to the Encounter. Date/Time Encounter Note(s) Provider Source Jun 25, 2023 03:08 PM NONVA NOTE: LOCAL TITLE: NonVA Medical Records STANDARD TITLE: NONVA NOTE DATE OF NOTE: JUN 25, 2023@15:08 ENTRY DATE: SEP 04, 2023@15:08:43 AUTHOR: GAYATHRI ACEVES COSIGNER: URGENCY: STATUS: COMPLETED NonVA Medical Records Has ADDENDA [address] [address]- Reason for Exam (MRI Spine Lumbar w/o Contrast) LOW BACK PAIN Ordering Physician MATTHEW DASH APRN Report EXAM DESCRIPTION: MRI Spine Lumbar w/o Contrast INDICATION: LOW BACK PAIN TECHNIQUE: Multiplanar MRI examination of the lumbar spine utilizing Ti, fat-suppressed T2 and fast STIR technique. FINDINGS: Lumbar lordosis is anatomic. No scoliosis. L5-S1: Mild broad-based right paracentral disc extrusion best seen on axial images. Mild bilateral facet hypertrophy. Mild right lateral recess stenosis with encroachment on the right S1 nerve root. No significant central stenosis or thecal sac deformity. AP spinal canal diameter is 12 mm. No neural foraminal narrowing. L4-5: Broad-based central/right paracentral disc extrusion most pronounced in the right paracentral region. Significant right lateral recess stenosis. Relative central stenosis with AP spinal canal diameter of 6.3 mm. Mild left lateral recess stenosis. No significant neural foraminal narrowing L3-4: No focal disc protrusion, significant spinal stenosis or neural foraminal narrowing. L2-3: No focal disc protrusion, significant spinal stenosis or neural foraminal narrowing. Report L1-2: No focal disc protrusion, significant spinal stenosis or neural foraminal narrowing. No significant stenosis in the visualized lower thoracic spine The conus is normal in morphology and signal intensity and terminates at the T12-L1 level. No suspicious focal marrow lesions. No vertebral body compression deformity in the lumbar region. Paraspinal soft tissues are unremarkable. IMPRESSION: Spondylotic changes in the lower lumbar region. Significant right lateral recess stenosis at L4-5 with relative central stenosis at this level as well. Mild right lateral recess stenosis at L5-S1. Please see above discussion for individual level description. Normal conus. /kristie/ GAYATHRI ACEVES LPN Signed: 09/04/2023 15:10 09/04/2023 ADDENDUM STATUS: COMPLETED This was done in 2022 /dayana ACEVES LPN Signed: 09/04/2023 15:11 GAYATHRI ACEVES [facility]
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
--- OUTSIDE RECORDS SUMMARY | 2024-06-27 20:24 | XMS_ITS | Encounter Summary ---
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 Date/Time Encounter Type Encounter Description Reason Provider Source Mar 26, 2024 02:30 PM Outpatient Encounter TELEPHONE PRIMARY CARE ICD-10-CM R94.5 Abnormal results of liver function studies MATTHEW DASH IHLorenzo Encounter Template Text not used by [facility] Assessments - Encounter Diagnoses This section includes the primary and secondary diagnoses documented for the Encounter. Date/Time Primary/Secondary Diagnosis Diagnosis Name Provider Source Mar 26, 2024 02:30 PM PRIMARY Abnormal results of liver function studies MATTHEW DASH [facility] Plan of Treatment: Future Appointments (+ 6 months) and Future Tests (+/- 45 days) The Plan of Treatment section includes future care activities for the patient [facility] [place] [facility] This section includes future appointments and future orders which are active, pending or scheduled. Future Appointments This section includes appointments that were scheduled to occur 6 months from the date of the Encounter, up to a maximum of 20 appointments. The data comes from all [facility]. Appointment Date/Time Appointment Type Appointme nt Facility Name Apr 07, 2024 01:00 PM AMBULATORY - NONE VERNA HIGGINS [facility] Apr 15, 2024 03:30 PM AMBULATORY - NONE [facility] [facility] May 21, 2024 03:30 PM AMBULATORY - MEDICINE [facility] Lorenzo SALAZAR [facility] Jun 02, 2024 01:00 PM AMBULATORY - NONE [facility] JUSTIN HIGGINS [facility] Aug 10, 2024 02:15 PM AMBULATORY - NONE [facility] [place] [facility] Aug 13, 2024 02:30 PM AMBULATORY - MEDICINE [facility] Lorenzo [facility] Active, Pending, and Scheduled Orders This section includes a listing of several types of active, pending, and scheduled orders, including clinic medications orders, diagnostic test orders, procedure orders and consult orders; where the start date of the order is 45 days before the date of the Encounter or 45 days after the date of theEncounter. The data comes from all [facility]. Test Date/Time Test Type Test Details Facility Name Apr 15, 2024 03:30 PM Laboratory - Chemi stry Order IRON+TIBC(P) LT GREEN(LI HEP) PLASMA SP Added by [id number] on Apr 16, 2024@16:15 [facility] Lab Results: +/- 30 days of the encounter This section includes the Chemistry and Hematology Lab Results on record with [place] for the patient. Radiology Reports and Pathology Reports are provided separately, in subsequent sections. Lab Results This section contains the Chemistry/Hematology Results that were resulted 30 days before or 30 daysafter the date of the Encounter. Date/Time Source Result Type Result - Unit Interpretation Reference Range Comment Apr 15, 2024 03:30 PM [facility] LIPOPROTEIN CHOLESTEROL FRACT. PANEL Specimen Type: PLASMA Comment: Added by [id number] on Apr 16, 2024@16:15, Tests performed on [employer] Hi [id number]). Ordering Provider: MATTHEW DASH Report Released Date/Time: Jan 13, 2024 10:58 AM Reporting Lab: [facility] [address] [facility] [address] Performing Lab: [facility] [address] [facility] [facility] [address] CHOLESTEROL 270 mg/dL H 0-200 TRIGLYCERIDE 186 mg/dL H 0-150 HDL CHOLESTEROL 41 mg/dL >40 LDL CHOLESTEROL (CALC) 192 mg/dL H 0-129 Apr 15, 2024 03:30 PM [facility] LIVER PROFILE Specimen Type: PLASMA Comment: Added by [id number] on Apr 16, 2024@16:15, Tests performed on [employer] [id number]). Ordering Provider: MATTHEW DASH Report Released Date/Time: Jan 13, 2024 10:58 AM Reporting Lab: [facility] [address] [facility] [facility] [address] Performing Lab: [facility] [address] [facility] [address] PROTEIN, TOTAL 7.6 g/dL 6.0-8.5 ALBUMIN 4.8 g/dL 3.2-5.0 BILIRUBIN, TOTAL 0.7 mg/dL 0.2-1.2 ALKALINE PHOSPHATASE 52 U/L 40-150 ALT(SGPT) 48 U/L 7-52 AST(SGOT) 26 U/L 5-34 FIB-4 SCORE 0.58 <2.67 Apr 15, 2024 03:30 PM [facility] HEP B CORE,TOTAL(W) Specimen Type: SERUM Comment: Hep B Surface Ab: A 'Reactive' result indicates HBsAb results >/= 12.0 mIU/mL and immunity to HBV infection. Hep B Core, Total: This test detects both IgG and IgM antibodies. A nonreactive final interpretation indicates that anti-HBc antibodies were not detected in the sample. This test detects both IgG and IgM antibodies. A Reactive result (Positive prior to 03/16/13) may indicate either current or previous hepatitis B infection. Antibodies to Hepatitis B Core may be the only marker of recent hepatitis B infection during the window period when Hepatitis B surface antigen has disappeared and Hepatitis B surface antibodies are not yet detectable. Ordering Provider: MATTHEW DASH Report Released Date/Time: Feb 17, 2024 03:07 PM Reporting Lab: [facility] [address] [address] Performing Lab: [facility] [address] [facility] [address] HEP B CORE,TOTAL(W) Non Reactive Non Reactive Apr 15, 2024 03:30 PM [facility] HEP B SURF AB(W) Specimen Type: SERUM Comment: Hep B Surface Ab: A 'Reactive' result indicates HBsAb results >/= 12.0 mIU/mL and immunity to HBV infection. Hep B Core, Total: This test detects both IgG and IgM antibodies. A nonreactive final interpretation indicates that anti-HBc antibodies were not detected in the sample. This test detects both IgG and IgM antibodies. A Reactive result (Positive prior to 03/16/13) may indicate either current or previous hepatitis B infection. Antibodies to Hepatitis B Core may be the only marker of recent hepatitis B infection during the window period when Hepatitis B surface antigen has disappeared and Hepatitis B surface antibodies are not yet detectable. Ordering Provider: MATTHEW DASH Report Released Date/Time: Feb 17, 2024 03:07 PM Reporting Lab: [facility] [address] [facility] [address] Performing Lab: [facility] [address] [facility] [address] HEP B SURF AB(W) REACTIVE Non Reactive Apr 15, 2024 03:30 PM [facility] HEPATITIS C AB(WRJ)w/Reflex Specimen Type: SERUM Comment: , Tests performed on [place] [employer] [id number] ([id number]) No HCV antibody detected. If recent infection is suspected or other evidence suggests HCV infection, consider HCV RNA testing Ordering Provider: MATTHEW DASH Report Released Date/Time: Feb 17, 2024 03:07 PM Reporting Lab: [facility] [address] [facility] [address] Performing Lab: [facility] [address] [facility] [address] HEPATITIS C AB(WRJ)w/Refle x Non-Reactive Non-Reacti ve Apr 15, 2024 03:29 PM [facility] HBSAG PANEL WITH REFLEX CONFIRMATION() Specimen Typ e: SERUM Comment: Hep B Surf Ag: Negative for HBsAg. Other markers of Hepatitis B virus are needed to ascertain Hepatitis B infection status. A Reactive result (Positive prior to 03/16/13) is diagnostic of acute or chronic hepatitis B infection. The presence of Hepatitis B surface antigen is frequently associated with infectivity. Ordering Provider: MATTHEW DASH Report Released Date/Time: Feb 17, 2024 03:07 PM Reporting Lab: [facility] [address] [address] Performing Lab: [facility] [address] [facility] [address] HEP B SURFACE AG() Non Reactive Non Reactive Apr 15, 2024 03:29 PM [facility] FERRITIN Specimen Type: SERUM Comment: , Tests performed on [employer] [id number] ([id number]) Ordering Provider: MATTHEW DASH Report Released Date/Time: Apr 09, 2024 09:45 AM Reporting Lab: [facility] [address] [place] [facility] [place] [address] Performing Lab: [facility] [address] [facility] [address] FERRITIN 215 ng/mL 22-275 Apr 15, 2024 03:29 PM [facility] FOLATE Specimen Type: SERUM Comment: , Tests performed on [employer] [id number] ([id number]) Ordering Provider: MATTHEW DASH Report Released Date/Time: Apr 09, 2024 09:45 AM Reporting Lab: [facility] [address] [place] [facility] [place] [address] Performing Lab: [facility] [address] [facility] [address] FOLATE 8.6 ng/mL 5.2-20.3 Social History: Smoking Status (Most current) and Tobacco Use (All prior to encounter date) This section includes the most current, and the historical, smoking and tobacco- related health factors from the [place] facility where the Encounter took place. Current Smoking Status This section includes the most current smoking, or tobacco-related health factor, from the [place] facility where the Encounter took place. Date/Time Current Smoking Status Comment Facil mery Jun 20, 2023 09:00 AM AH-BPR SMOKING DEP LOYMENT UNKNOWN [facility] Tobacco Use History This section includes a history of the smoking, or tobacco-related health factors, that were collected on or before the date of the Encounter. The data comes from the [place] facility where the Encounter took place. Date/Time Smoking Status/Tobacco Use Comment F acility May 23, 2023 11:30 AM VA-TOBACCO USE > 1 5 LESS THAN 30 YEARS [facility] May 23, 2023 11:30 AM VA-TOBACCO USE ADVICE [facility] May 23, 2023 11:30 AM VA-TOBACCO USE PRODUCT LEAD NO [facility] May 23, 2023 11:30 AM VA-TOBACCO USE MED NO [facility] May 23, 2023 11:30 AM VA-TOBACCO USE WI 30 MIN OF WAKEUP [facility] May 23, 2023 11:30 AM VA-TOBACCO USER EVERY DAY [facility] May 17, 2022 01:00 PM VA-TOBACCO FORMER USER [facility] May 17, 2022 01:00 PM VA-TOBACCO QUIT 5 TO < 15 YRS [facility] Mar 03, 2021 10:00 AM VA-TOBACCO NEVER USED [facility] Aug 01, 2005 09:00 AM CURRENT SMOKER 1/4-1/2 pack a day [facility] Aug 01, 2005 09:00 AM LIFETIME NON-TOBACCO USER [facility] Aug 01, 2005 09:00 AM QUIT TOBACCO USE 1 -7 YEARS AGO [facility] Encounter Notes: All associated encounter notes This section contains the clinical notes associated to the Encounter. Date/Time Encounter Note(s) Provider Source Apr 24, 2024 11:50 AM ADDENDUM: LOCAL TITLE: Addendum STANDARD TITLE: ADDENDUM DATE OF NOTE: APR 24, 2024@11:50:45 ENTRY DATE: APR 24, 2024@11:50:45 AUTHOR: MATTHEW DASH EXP COSIGNER: URGENCY: STATUS: COMPLETED Please mail to /kristie/ MATTHEW DASH APRN Signed: 04/24/2024 11:50 Receipt Acknowledged By: 04/24/2024 12:53 /es/ LAINA MERRILL Brand Advocate --- Original Document --- 04/24/24 Letter to Patient - [facility]: APR 24, 2024 SALOME HOWARD [address] [facility] [address] [place], [place] [address] Dear SALOME HOWARD: I have reviewed your lab results. liver function tests are normal. Your hepatitis B results show no infection and you still have active immunity. Your Hepatitis C results show no infection. Folate and Ferritin levels are good. Cholesterol Your cholesterol levels are: CHOLESTEROL 270 H mg/dL 0 - 200 TRIGLYCERIDE 186 H mg/dL 0 - 150 HDL CHOLESTEROL 41 mg/dL Ref: >=40 LDL CHOLESTEROL (CALC) 192 H mg/dL 0 - 129 You can work on increasing your HDL, which is the good cholesterol. To improve this number, you can eat more fiber, avoid trans sat, and replace saturated fats with unsaturated fats. A heart-healthy diet includes lots of fruits and vegetables, fiber, and healthy fats (like those found in fish, nuts, and certain oils). It also means limiting sugar and unhealthy fats You can lower your LDL, or bad, cholesterol by avoiding red meat, butter, fried foods, cheese, and other foods that have a lot of saturated fat. You can lower triglycerides by avoiding sugary foods, fried foods, and excess alcohol. If you are overweight, it can help to lose weight. Your doctor or nurse can help you do this in a healthy way. Try to get regular physical activity. Even gentle forms of exercise, like walking, are good for your health. Even if these steps do little to change your cholesterol, they can improve your health in many other ways. I have asked our clinical pharamcist to help with your cholesterol. Please don't hesitate to call if you have any questions or concerns, . Sincerely, MATTHEW DASH APRN [facility] [address] [place] [address] MATTHEW DASH [facility] Apr 24, 2024 11:40 AM LETTERS: LOCAL TITLE: Letter to Patient - [facility] HOLDEN TITLE: LETTERS DATE OF NOTE: APR 24, 2024@11:40 ENTRY DATE: APR 24, 2024@11:40:47 AUTHOR: MATTHEW DASH EXP COSIGNER: URGENCY: STATUS: COMPLETED Letter to Patient - [facility] Has ADDENDA APR 24, 2024 SALOME HOWADR [address] [facility] [address] [place], [place] [address] Dear SALOME HOWARD: I have reviewed your lab results. liver function tests are normal. Your hepatitis B results show no infection and you still have active immunity. Your Hepatitis C results show no infection. Folate and Ferritin levels are good. Cholesterol Your cholesterol levels are: CHOLESTEROL 270 H mg/dL 0 - 200 TRIGLYCERIDE 186 H mg/dL 0 - 150 HDL CHOLESTEROL 41 mg/dL Ref: >=40 LDL CHOLESTEROL (CALC) 192 H mg/dL 0 - 129 You can work on increasing your HDL, which is the good cholesterol. To improve this number, you can eat more fiber, avoid trans sat, and replace saturated fats with unsaturated fats. A heart-healthy diet includes lots of fruits and vegetables, fiber, and healthy fats (like those found in fish, nuts, and certain oils). It also means limiting sugar and unhealthy fats You can lower your LDL, or bad, cholesterol by avoiding red meat, butter, fried foods, cheese, and other foods that have a lot of saturated fat. You can lower triglycerides by avoiding sugary foods, fried foods, and excess alcohol. If you are overweight, it can help to lose weight. Your doctor or nurse can help you do this in a healthy way. Try to get regular physical activity. Even gentle forms of exercise, like walking, are good for your health. Even if these steps do little to change your cholesterol, they can improve your health in many other ways. I have asked our clinical pharamcist to help with your cholesterol. Please don't hesitate to call if you have any questions or concerns, . Sincerely, MATTHEW DASH APRN [facility] [address] [place] [address] 04/24/2024 ADDENDUM STATUS: COMPLETED Please mail to [email or web address] Thanks. /kristie/ MATTHEW DASH APRN Signed: 04/24/2024 11:50 Receipt Acknowledged By: * AWAITING SIGNATURE * LAINA MERRILL [facility] Mar 26, 2024 02:50 PM PRIMARY CARE TELEP DARSHAN ENCOUNTER NOTE: LOCAL TITLE: Telephone Note-Primary Care STANDARD TITLE: PRIMARY CARE TELEPHONE ENCOUNTER NOTE DATE OF NOTE: MAR 26, 2024@14:50 ENTRY DATE: MAR 26, 2024@14:51:06 AUTHOR: MATTHEW DASH EXP COSIGNER: URGENCY: STATUS: COMPLETED Cell phone: ASSES/PLAN -43 Y M PMH hypercholesterolemia, elevated LFTs. ETOH use, PTSD, shoulder pain, knee pain, back pain, chronic rhinitis # elevated LFTs ? excessive acetaminophen use - recheck LFTs - Hepatitis panel - iron studies Not discussed today: # MAYERS/chest tightness- PFTs normal ECG 2022 T wave abnormality consider inferior ischemia - stress echo Jul 01 2023 normal - still gets MAYERS and chest tightness on exertion # history hypothyroidism with normal levels while off meds - - TSH 3.Jan #elevated cholesterol panel a bit elevated last [...] Xrays ordered per protocol. MRI 03/21/21 at [facility]: no full thickness rotator cuff [...] use. - Lumbar MRI done 06/25/22 at [facility] still no records will request , xrays from 2020 in viewer # chronic rhinitis/seasonal allergies- - zyrtec #Meds: reviewed, reconciled #health Maint: vaccines reviewed: RTC - months [x] open access Side effects from Meds: [] Yes []NO [x] Counseling of patient/family dominates over 50% of this minute telephone encounter HPI: He was taking 8 or 9 tylenol 650 mg ER daily - he realized he was taking too much in Jan when we found he had elevated LFTs He stopeed taking tylenol at that time. 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 Hypothyroidism (SNOMED CT 13768389) 14. SENSORINEURAL HEARING LOSS, ASYMMETRICAL 15. SUBJECTIVE TINNITUS 16. Concussion 17. Chronic low back pain (SNOMED CT 842320568) 18. Bereavement * 19. Acute Stress Disorder 20. Esophageal Reflux (GERD) SURGICAL HISTORY: MEDS: Active Outpatient Medications (excluding Supplies): Active Outpatient Medications Status 1) BUPROPION HCL 75MG TAB TAKE TWO TABLETS BY MOUTH ONCE ACTIVE EVERY MORNING FOR 7 DAYS, THEN TAKE TWO TABLETS TWICE A DAY FOR DEPRESSION 2) CETIRIZINE HCL 10MG TAB TAKE ONE TABLET BY MOUTH ONCE ACTIVE DAILY FOR ALLERGIC RHINITIS 3) DICLOFENAC NA 1% TOP GEL APPLY 2 GRAMS TO UPPER AND 4 ACTIVE GRAMS TO LOWER EXTREMITIES TOPICALLY FOUR TIMES DAILY NEEDED FOR PAIN/INFLAMMATION *DO NOT EXCEED 16 GRAMS DAILY TO ANY JOINT OF LOWER EXTREMITIES. DO NOT EXCEED 8 GRAMS DAILY TO ANY JOINT OF UPPER EXTREMITIES. DO NOT EXCEED TOTAL DOSE OF 32 GRAMS DAILY OVER ALL JOINTS. 4) IBUPROFEN 800MG TAB TAKE ONE TABLET BY MOUTH TWICE ACTIVE DAILY NEEDED FOR PAIN Active Non-VA Medications Status 1) Non-VA MAGNESIUM OXIDE TAB BY MOUTH ACTIVE 5 Total Medications Outside VA meds: ALLERGIES: Patient has answered NKA ROS: as above OBJ: Exam: Psych: Normal affect and demeanor. normal speech pattern Neurological:Alert, oriented X3 /es/ MATTHEW DASH APRN Signed: 03/28/2024 14:06 MATTHEW DASH [facility] [facility]
--- OUTSIDE RECORDS SUMMARY | 2024-06-27 20:24 | XMS_ITS ---
Author Name [facility] [place] Organization [facility] of [facility] ([place]) Address [address] [place] [address] Care Team Providers Care Bellows Filler Name Role Phone RADHA DE LA VEGA [...] TRICA RE DODA Apr 07, 2012 DODA [id number] [phone] ANITA,PET ER PATIENT [facility] [address] T Jun 03, 2017 [id number] ANITA,PET ER PATIENT Selected Encounter This section includes the information on record at MD for the Encounter. Date/Time Encounter Type Encounter Description Reason Pro vider Source Jan 14, 2024 09:41 AM Outpatient Encounter ADMIN PAT ACTIVTIES (MASNONCT) IHE [...] 20 appointments. The data comes from all [place] treatment facilities. Appointment Date/Time Appointment Type Appointme nt Facility Name Jan 24, 2024 09:00 AM AMBULATORY - MEDICINE [facility] Feb 07, 2024 07:15 AM AMBULATORY - NONE [facility]IG[facility] Mar 26, 2024 02:30 PM AMBULATORY - MEDICINE AZUL SALAZAR [facility] Apr 07, 2024 01:00 PM AMBULATORY - NONE [facility]IG[facility] Apr 15, 2024 03:30 PM AMBULATORY - NONE [facility] May 21, 2024 03:30 PM AMBULATORY - MEDICINE AZUL SALAZAR [facility] Jun 02, 2024 01:00 PM AMBULATORY - NONE [facility]IG[facility] Lab Results: +/- 30 days of the encounter This section includes the Chemistry and Hematology Lab Results on record with MD for the patient. Radiology Reports and Pathology Reports are provided separately, in subsequent sections. Lab Results This section contains the Chemistry/Hematology Results that were resulted 30 days before or 30 daysafter the date of the Encounter. Date/Time Source Result Type Result - Unit Interpretation Reference Range Comment Jan 10, 2024 09:21 AM [facility] LIVER PROFILE Specimen Type: PLASMA Comment: , Tests performed on [email or web address] SN:[id number] (405). Ordering Provider: MATTHEW DASH Report Released Date/Time: Jan 10, 2024 08:46 AM Reporting Lab: [facility] [address] [address] Performing Lab: [facility] [address] [address] PROTEIN, TOTAL 7.3 g/dL 6.0-8.5 ALBUMIN 4.3 g/dL 3.2-5.0 BILIRUBIN, TOTAL 0.6 mg/dL 0.2-1.2 ALKALINE PHOSPHATASE 58 U/L 40-150 ALT(SGPT) 56 U/L H 7-52 AST(SGOT) 38 U/L H 5-34 FIB-4 SCORE 0.79 <2.67 Jan 10, 2024 09:21 AM [facility] CBC NO DIFF Specimen Type: BLOOD No comment entered. Ordering Provider: MATTHEW DASH Report Released Date/Time: Jan 10, 2024 08:46 AM Reporting Lab: [facility] [address] [address] Performing Lab: [facility] [address] [address] WBC 5.7 10*3/uL 4.5-11.0 RBC 5.13 10*6/uL 4.23-5.66 HGB 15.7 g/dL 12.8-17 HEMATOCRIT 45.6 39.2-50.4 MCV 88.9 fL 82-99 MCH 30.6 pg 26.2-32.6 MCHC 34.4 g/dL 30.8-35.1 PLT 265 10*3/uL 140-360 MPV 10.8 fL 9.2-12.4 RDW 12.1 12.0-16.0 Jan 10, 2024 09:21 AM [facility] P4 GLU,BUN,CREAT,LYTES,CA Specimen Type: PLASMA Comment: , Tests performed on [email or web address] SN:[id number] (405). Ordering Provider: MATTHEW DASH Report Released Date/Time: Jan 10, 2024 08:46 AM Reporting Lab: [facility] [address] [address] Performing Lab: [facility] [address] [address] UREA NITROGEN 13 mg/dL 7-25 SODIUM 138 mmol/L 135-145 POTASSIUM 4.2 mmol/L 3.5-5.0 CHLORIDE 104 mmol/L 100-110 CARBON DIOXIDE 27 mmol/L 20-30 ANION GAP 7 4-16 GLUCOSE 109 mg/dL H 65-100 CREATININE 1.19 mg/dL 0.50-1.50 CALCIUM 9.5 mg/dL 8.5-10.5 eGFR(CKD-EPI 2020) 79 mL/min Jan 10, 2024 09:21 AM [facility] LIPOPROTEIN CHOLESTEROL FRACT. PANEL Specimen Type: PLASMA Comment: , Tests performed on [email or web address] SN:[id number] (405). Ordering Provider: MATTHEW DASH Report Released Date/Time: Jan 10, 2024 08:46 AM Reporting Lab: [facility] [address] [address] Performing Lab: [facility] [address] [address] CHOLESTEROL 245 mg/dL H 0-200 TRIGLYCERIDE 116 mg/dL 0-150 HDL CHOLESTEROL 42 mg/dL >40 LDL CHOLESTEROL (CALC) 180 mg/dL H 0-129 Jan 10, 2024 09:21 AM [facility] GLYCOHEMOGLOBIN (A1C ONLY) Specimen Type: BLOOD Comment: , Tests performed on [employer] [facility] SN:[id number] (405) Values obtained from A1C measurements can vary. For typical A1C assays, a reported value of 7.0 could actually be between 6.72 and 7.28 if measured by a reference method. A reported value of 9.0 could actually be between 8.73 and 9.27. Ref: http://www.ng sp.org/CAPdat a.asp Ordering Provider: MATTHEW DASH Report Released Date/Time: Jan 10, 2024 08:46 AM Reporting Lab: [facility] [address] [address] Performing Lab: [facility] [address] [address] HEMOGLOBIN A1C 4.8 4.0-5.6 Jan 10, 2024 09:21 AM [facility] PSA (TOURIST ESCORT) Specimen Type: SERUM Comment: , Tests performed on [employer] SN:[id number] (405) TSH within normal limits. Reflex testing not required. Ordering Provider: MATTHEW DASH Report Released Date/Time: Jan 10, 2024 08:46 AM Reporting Lab: [facility] [address] [address] Performing Lab: [facility] [address] [address] PSA (TOURIST ESCORT) 1.30 ng/mL Jan 10, 2024 09:21 AM [facility] THYROID TESTING CASCADE Specimen Type: SERUM Comment: , Tests performed on [employer] SN:[id number] (405) TSH within normal limits. Reflex testing not required. Ordering Provider: MATTHEW DASH Report Released Date/Time: Jan 10, 2024 08:46 AM Reporting Lab: [facility] [address] [address] Performing Lab: [facility] [address] [address] TSH 3.33 u[IU]/mL 0.35-5.00 Jan 10, 2024 09:21 AM [facility] VIT D 25-OH([facility]) Specimen Type: SERUM Comment: , Tests performed on [employer] SN:[id number] (405) TSH within normal limits. Reflex testing not required. Ordering Provider: MATTHEW DASH Report Released Date/Time: Jan 10, 2024 08:46 AM Reporting Lab: [facility] [address] [address] Performing Lab: [facility] [address] [address] VIT D 25-OH([facility]) 33.8 ng/mL 20.0-50.0 Jan 10, 2024 09:21 AM [facility] MAGNESIUM Specimen Type: PLASMA Comment: , Tests performed on [employer] [facility] SN:[id number] (405). Ordering Provider: MATTHEW DASH Report Released Date/Time: Jan 10, 2024 09:14 AM Reporting Lab: [facility] [address] [address] Performing Lab: [facility] [address] [address] MAGNESIUM 2.1 mg/dL 1.6-2.6 Social History: Smoking Status (Most current) and Tobacco Use (All prior to encounter date) This section includes the most current, and the historical, smoking and tobacco- related health factors from the MD facility where the Encounter took place. Current Smoking Status This section includes the most current smoking, or tobacco-related health factor, from the MD facility where the Encounter took place. Date/Time Current Smoking Status Comment Uzma blancoy Jun 20, 2023 09:00 AM -BPR SMOKING DEP LOYMENT UNKNOWN [facility] Tobacco Use History This section includes a history of the smoking, or tobacco-related health factors, that were collected on or before the date of the Encounter. The data comes from the MD facility where the Encounter took place. Date/Time Smoking Status/Tobacco Use Comment F acility Aug 08, 2010 12:30 PM LIFETIME NON-TOBACCO USER [facility] Radiology Reports: +/- 30 days of [...] the Encounter. The data comes from all MD treatment facilities. Date/Time Radiology Report Provider Source Feb 07, 2024 07:15 AM ULTRASOUND RUQ (GB,LIVER,BILIARY): SALOME HOWARD [id number] -1980 M Ex Date: FEB 07, 2024@07:15 Req Phys: MATTHEW DASH Pat Loc: LIT PACT T (Req'g Loc) Img Loc: ULTRASOUND (OOS) Service: [place] [facility] [place] [address] (Case [id number] COMPLETE) ULTRASOUND RUQ (GB,LIVER,BILIARY)(US Detailed) CPT:55743 Reason for Study: elevated LFts Clinical History: 43 Y M PMH hypercholesterolemia, elevated LFTs. ETOH use, PTSD, shoulder pain, knee pain, back pain, chronic rhinitis Report Status: Verified Date Reported: FEB 07, 2024 Date Verified: FEB 07, 2024 Corner Block Cutter E-Sig:/ES/CESAR FISHMAN Report: Examination: Ultrasound abdomen and [...] REQUIRED Primary Interpreting Staff: CESAR FISHMAN, radiologist (Corner Block Cutter) /fml CESAR FISHMAN [facility] Feb 07, 2024 07:15 AM ELASTOGRAPHY PAREN CHYMA (E.G., ORGAN): SALOME HOWARD [id number] -1980 M Ex Date: FEB 07, 2024@07:15 Req Phys: MATTHEW DASH Pat Loc: LIT PACT T (Req'g Loc) Img Loc: ULTRASOUND (OOS) Service: [place] [facility] [place] [address] (Case [id number] COMPLETE) ELASTOGRAPHY PARENCHYMA (E.G., OR(US Detailed) CPT:86275 Reason for Study: elv lfts fatty liver Clinical History: 43 Y M PMH hypercholesterolemia, elevated LFTs. ETOH use, PTSD, shoulder pain, knee pain, back pain, chronic rhinitis Report Status: Verified Date Reported: Date Verified: FEB 10, 2024 Corner Block Cutter E-Sig: Report: Examination: Ultrasound abdomen and liver [...] Interpreting Staff: CESAR FISHMAN, radiologist Verified by developmental electronics assembler for CESAR FISHMAN /CESAR VUONG [facility] Feb 07, 2024 07:03 AM SHOULDER (ORTHO) 4 VIEWS: SALOME HOWARD [id number] -1980 Ex Date: FEB 07, 2024@07:03 Req Phys: HARDY,MATTHEW L Pat Loc: LIT VVC PACT T (Req'g Loc) Img Loc: XRAY (OOS) Service: [place] [facility] [place] [place] [address] (Case [id number] COMPLETE) SHOULDER (ORTHO) 4 VIEWS (RAD Detailed) CPT:45745 Proc Modifiers : LEFT Reason for Study: long standing shoulder pain Clinical History: Report Status: Verified Date Reported: FEB 07, 2024 Date Verified: FEB 07, 2024 Corner Block Cutter E-Sig:/ES/CATHERINE PINEDA Report: Bilateral shoulders: COMPARISON: Left [...] Primary Interpreting Staff: CATHERINE PINEDA, RADIOLOGY ATTENDING (Corner Block Cutter) /CATHERINE VEE [facility] Feb 07, 2024 07:03 AM SHOULDER (ORTHO) 4 VIEWS: ANITASALOME YI JAG [id number] -1980 M Exm Date: FEB 07, 2024@07:03 Req Phys: HARDY,MATTHEW L Pat Loc: LIT VVC PACT T (Req'g Loc) Img Loc: XRAY (OOS) Service: [place] [facility] [place] [address] (Case [id number] COMPLETE) SHOULDER (ORTHO) 4 VIEWS (RAD Detailed) CPT:08801 Proc Modifiers : RIGHT Reason for Study: Long standing shoulder pain Clinical History: Report Status: Verified Date Reported: FEB 07, 2024 Date Verified: FEB 07, 2024 Corner Block Cutter E-Sig:/ES/CATHERINE PINEDA Report: Bilateral shoulders: COMPARISON: Left [...] Primary Interpreting Staff: CATHERINE PINEDA, RADIOLOGY ATTENDING (Corner Block Cutter) /CATHERINE VEE [facility] Feb 07, 2024 07:03 AM KNEE 4 VIEWS (ORTH O): SALOME HOWARD JAG [id number] -1980 M Exm Date: FEB 07, 2024@07:03 Req Phys: MATTHEW DASH Pat Loc: LIT [facility] PACT T (Req'g Loc) Img Loc: XRAY (OOS) Service: [place] [facility] [place] [address] (Case [id number] COMPLETE) KNEE 4 VIEWS (ORTHO) (RAD Detailed) CPT:31429 Proc Modifiers : RIGHT Reason for Study: knee pain Clinical History: pain walking bending Report Status: Verified Date Reported: FEB 07, 2024 Date Verified: FEB 07, 2024 O-RID E-Sig:/ARON/CATHERINE PINEDA Report: Bilateral knees: COMPARISON: Right knee [...] Primary Interpreting Staff: CATHERINE PINEDA, RADIOLOGY ATTENDING (Corner Block Cutter) /CATHERINE VEE [facility] Feb 07, 2024 07:03 AM KNEE 4 VIEWS (ORTH O): ANITASALOME [id number] -1980 M Ex Date: FEB 07, 2024@07:03 Req Phys: MATTHEW DASH Pat Loc: [facility] PACT T (Req'g Loc) Img Loc: XRAY (OOS) Service: [place] [facility] [place] [address] (Case [id number] COMPLETE) KNEE 4 VIEWS (ORTHO) (RAD Detailed) CPT:66264 Proc Modifiers : LEFT Reason for Study: knee pain Clinical History: pain walking or bending Report Status: Verified Date Reported: FEB 07, 2024 Date Verified: FEB 07, 2024 O-RID E-Sig:/ARON/CATHERINE PINEDA Report: Bilateral knees: COMPARISON: Right knee [...] Primary Interpreting Staff: CATHERINE PINEDA, RADIOLOGY ATTENDING (Corner Block Cutter) /CATHERINE VEE [facility] Encounter Notes: All associated encounter notes This section contains the clinical notes associated to the Encounter. Date/Time Encounter Note(s) Provider Source Jan 14, 2024 09:41 AM LETTERS: LOCAL TITLE: LETTER TO PATIENT ATTEMPT TO CONTACT STANDARD TITLE: LETTERS DATE OF NOTE: JAN 14, 2024@09:41 ENTRY DATE: JAN 14, 2024@09:41:54 AUTHOR: AMBER CHENEY EXP COSIGNER: URGENCY: STATUS: COMPLETED [facility] [address] [place] [address] JAN 14, 2024 SALOME HOWARD [address] [address] Dear SALOME HOWARD, [facility] [place] is trying to reach you to schedule [...] find a suitable date for you: Service: Orthopedic Service with [facility] Direct: [phone] Ext: [phone] Toll Free: [phone] Ext: [phone] We look forward to hearing from you. Sincerely, Clinical Operations AMBER CHENEY [facility]
--- OUTSIDE RECORDS SUMMARY | 2024-06-27 20:24 | XMS_ITS | Encounter Summary ---
Author Name [facility] [place] Organization [facility] [place] Address [address] [place] [address] Care Team Providers Care Clothes Designer Name Role Phone RADHA DE LA VEGA [...] TRICA RE DODA Apr 07, 2012 DODA [id number] CHUNG HOWARD ER PATIENT [facility] [address] T Jun 03, 2017 [id number] [phone] CHUNG HOWARD ER PATIENT Selected Encounter This section includes the information on record at [place] for the Encounter. Date/Time Encounter Type Encounter Description Reason Pro vider Source Feb 21, 2024 09:56 AM Outpatient Encounter TELEPHONE TRIAGE IHE Encounter Template Text not used by [...] 20 appointments. The data comes from all [facility] [address] Appointment Date/Time Appointment Type Appointme nt Facility Name Mar 26, 2024 02:30 PM AMBULATORY - MEDICINE AZUL SALAZAR [facility] Apr 07, 2024 01:00 PM AMBULATORY - NONE VERNA HIGGINS [facility] Apr 15, 2024 03:30 PM AMBULATORY - NONE [facility] May 21, 2024 03:30 PM AMBULATORY - MEDICINE [facility] Lorenzo SALAZAR [facility] Jun 02, 2024 01:00 PM AMBULATORY - NONE VERNA HIGGINS [facility] Aug 10, 2024 02:15 PM AMBULATORY - NONE [facility] Aug 13, 2024 02:30 PM AMBULATORY - MEDICINE [facility] Lorenzo [facility] Social History: Smoking Status (Most current) and [...] 09:00 AM AH-BPR SMOKING DEP LOYMENT UNKNOWN [facility] Tobacco Use History This section includes a history of the smoking, or tobacco-related health factors, that were collected on or before the date of the Encounter. The data comes from the [place] facility where the Encounter took place. Date/Time Smoking Status/Tobacco Use Comment F acility Aug 08, 2010 12:30 PM LIFETIME NON-TOBACCO USER [facility] Radiology Reports: +/- 30 days of [...] the Encounter. The data comes from all [facility] [address]. Date/Time Radiology Report Provider Source Feb 07, 2024 07:15 AM ULTRASOUND RUQ (GB,LIVER,BILIARY): SALOME HOWARD [id number] -1980 M Exm Date: FEB 07, 2024@07:15 Req Phys: HARDYMATTHEW L Pat Loc: LIT PACT T (Req'g Loc) Img Loc: ULTRASOUND (OOS) Service: Unknown [place] [address] (Case [id number] COMPLETE) ULTRASOUND RUQ (GB,LIVER,BILIARY)(US Detailed) CPT:30892 Reason for Study: elevated LFts Clinical History: 43 Y M PMH hypercholesterolemia, elevated LFTs. ETOH use, PTSD, shoulder pain, knee pain, back pain, chronic rhinitis Report Status: Verified Date Reported: FEB 07, 2024 Date Verified: FEB 07, 2024 Roll Off Driver E-Sig:/ES/CESAR FISHMAN Report: Examination: Ultrasound abdomen and [...] REQUIRED Primary Interpreting Staff: CESAR FISHMAN, radiologist (Roll Off Driver) /fml CESAR FISHMAN [facility] Feb 07, 2024 07:15 AM ELASTOGRAPHY PAREN CHYMA (E.G., ORGAN): ANITASALOME JAG [id number] -1980 M Exm Date: FEB 07, 2024@07:15 Req Phys: MATTHEW DASH Pat Loc: LIT PACT T (Req'g Loc) Img Loc: ULTRASOUND (OOS) Service: [place] [facility] [place] [address] (Case [id number] COMPLETE) ELASTOGRAPHY PARENCHYMA (E.G., OR(US Detailed) CPT:74180 Reason for Study: elv lfts fatty liver Clinical History: 43 Y M PMH hypercholesterolemia, elevated LFTs. ETOH use, PTSD, shoulder pain, knee pain, back pain, chronic rhinitis Report Status: Verified Date Reported: Date Verified: FEB 10, 2024 Roll Off Driver E-Sig: Report: Examination: Ultrasound abdomen and liver [...] Interpreting Staff: CESAR FISHMAN, radiologist Verified by sewer bricklayer for CESAR FISHMAN /CESAR VUONG [facility] Feb 07, 2024 07:03 AM SHOULDER (ORTHO) 4 VIEWS: SALOME HOWARD [id number] -1980 M Ex Date: FEB 07, 2024@07:03 Req Phys: MATTHEW DASH Pat Loc: LIT [facility] PACT T (Req'g Loc) Img Loc: XRAY (OOS) Service: [place] [facility] [place] [address] (Case [id number] COMPLETE) SHOULDER (ORTHO) 4 VIEWS (RAD Detailed) CPT:05610 Proc Modifiers : LEFT Reason for Study: long standing shoulder pain Clinical History: Report Status: Verified Date Reported: FEB 07, 2024 Date Verified: FEB 07, 2024 Roll Off Driver E-Sig:/ES/CATHERINE PINEDA Report: Bilateral shoulders: COMPARISON: Left [...] Primary Interpreting Staff: CATHERINE PINEDA, RADIOLOGY ATTENDING (Roll Off Driver) /CATHERINE VEE [facility] Feb 07, 2024 07:03 AM KNEE 4 VIEWS (ORTH O): SALOME HOWARD JAG [id number] -1980 M Exm Date: FEB 07, 2024@07:03 Req Phys: HARDY,MATTHEW L Pat Loc: [facility] PACT T (Req'g Loc) Img Loc: XRAY (OOS) Service: [place] [facility] [address] (Case [id number] COMPLETE) KNEE 4 VIEWS (ORTHO) (RAD Detailed) CPT:62136 Proc Modifiers : LEFT Reason for Study: knee pain Clinical History: pain walking or bending Report Status: Verified Date Reported: FEB 07, 2024 Date Verified: FEB 07, 2024 Roll Off Driver E-Sig:/ES/CATHERINE PINEDA Report: Bilateral knees: COMPARISON: Right [...] Primary Interpreting Staff: CATHERINE PINEDA, RADIOLOGY ATTENDING (Roll Off Driver) /CATHERINE VEE [facility] Feb 07, 2024 07:03 AM SHOULDER (ORTHO) 4 VIEWS: SALOME HOWARD [id number] -1980 M Exm Date: FEB 07, 2024@07:03 Req Phys: HARDY,MATTHEW L Pat Loc: LIT [facility] PACT T (Req'g Loc) Img Loc: XRAY (OOS) Service: [place] [facility] [place] [address] (Case [id number] COMPLETE) SHOULDER (ORTHO) 4 VIEWS (RAD Detailed) CPT:83615 Proc Modifiers : RIGHT Reason for Study: Long standing shoulder pain Clinical History: Report Status: Verified Date Reported: FEB 07, 2024 Date Verified: FEB 07, 2024 Roll Off Driver E-Sig:/ES/CATHERINE PINEDA Report: Bilateral shoulders: COMPARISON: Left [...] IMMEDIATE ATTENTION REQUIRED Primary Interpreting Staff: CATHERINE PINEAD, RADIOLOGY ATTENDING (Roll Off Driver) /CATHERINE VEE [facility] Feb 07, 2024 07:03 AM KNEE 4 VIEWS (ORTH O): SALOME HOWARD [id number] -1980 M Exm Date: FEB 07, 2024@07:03 Req Phys: MATTHEW DASH Pat Loc: LIT [facility] PACT T (Req'g Loc) Img Loc: XRAY (OOS) Service: [place] [address] (Case 481 COMPLETE) KNEE 4 VIEWS (ORTHO) (RAD Detailed) CPT:38705 Proc Modifiers : RIGHT Reason for Study: knee pain Clinical History: pain walking bending Report Status: Verified Date Reported: FEB 07, 2024 Date Verified: FEB 07, 2024 Roll Off Driver E-Sig:/ES/CATHERINE PINEDA Report: Bilateral knees: COMPARISON: Right [...] Primary Interpreting Staff: CATHERINE PINEDA, RADIOLOGY ATTENDING (Roll Off Driver) /CATHERINE VEE [facility] Encounter Notes: All associated encounter notes This section contains the clinical notes associated to the Encounter. Date/Time Encounter Note(s) Provider Source Feb 21, 2024 09:56 AM ADMINISTRATIVE NOT E: LOCAL TITLE: Has Admin Note STANDARD TITLE: ADMINISTRATIVE NOTE DATE OF NOTE: FEB 21, 2024@09:56 ENTRY DATE: FEB 21, 2024@09:57:01 AUTHOR: RANDI PAGE EXP COSIGNER: URGENCY: STATUS: COMPLETED Reason for call Clinic Name:LIT PACT NURSE RTC 1st call, Letter sent 01/24/24 Discontinued 02/21/24 PID 01/13/24 CHECK HIS BP CUFF FOR ACCURACY FAILURE TO RESPOND /kristie/ RANDI PAGE Signed: 02/21/2024 09:58 RANDI PAGE [facility]
--- OUTSIDE RECORDS SUMMARY | 2024-06-27 20:25 | XMS_ITS | Continuity of Care Document ---
Author Organization [facility] Address [address] [place] [address] Encounter LTTL_[facility] FIN NBR [id number] Date(s): 04/19/22 - 04/19/22 [facility] [address] [place], [place] [address] Encounter Diagnosis Strain of right knee(Discharge Diagnosis) - 04/19/22 Discharge Disposition: Home or Self Care Attending Physician: Porfirio Hare DO Admitting Physician: Porfirio Hare DO Allergies, Adverse Reactions, Alerts No Known Allergies Functional Status 04/19/22 Other exposure to Infectious Disease Non e Medications ketorolac 10 mg oral tablet 10 mg = 1 tab, Oral, TID, PRN as needed for pain, X 3 days, # 9 tab, 0 Refill(s), 04/22/22 13:17:00EST, Pharmacy: [facility] #[id number], 189, cm, 04/19/22 11:37:00 EST, Height/Length Dosing, 108, kg, 04/19/22 11:37:00 EST, Weight Dosing Start Date: 04/19/22 Stop Date: 04/22/22 Status: Ordered omeprazole 0 Refill(s) Start Date: 04/19/22 Status: Ordered Wellbutrin SR 0 Refill(s) Start Date: 04/19/22 Status: Ordered Results Laboratory List Name Date CBC w/ Diff 04/19/22 Comprehensive Metabolic Panel (CMP) 04/03 12/22 Lactic Acid 04/19/22 Sedimentation Rate (ESR) 04/19/22 Automated Diff 04/19/22 Most recent to oldest [Reference Range]: 1 WBC [4.8-10.8 K/mcL] 8.4 K/mcL (04/19/22 11:50 AM) RBC [4.20-6.10 Million/mcL] 4.94 Million /mcL (04/19/22 11:50 AM) Neutro Auto [42.2-75.2 %] 68.2 % (04/19/22 11:50 AM) Lymph Auto [20.5-51.1 %] 21.6 % (04/19/22 11:50 AM) Coosa Auto [1.7-9.3 %] 6.9 % (04/19/22 11:50 AM) Basophil Auto [0.0-0.8 %] 1.1 % *HI* (04/19/22 11:50 AM) BUN [8-26 mg/dL] 16 mg/dL (04/19/22 11:50 AM) Glucose Level [74-106 mg/dL] 105 mg/dL (04/19/22 11:50 AM) Potassium Level [3.5-5.1 mmol/L] 4.4 mmo l/L (04/19/22 11:50 AM) Baso Absolute [0.0-0.2 K/mcL] 0.1 K/mcL (04/19/22 11:50 AM) MCV [80.0-99.0 fL] 90.5 fL (04/19/22 11:50 AM) AST [15-41 IntlUnit/L] 42 IntlUnit/L *HI* (04/19/22 11:50 AM) ALT [17-63 IntlUnit/L] 56 IntlUnit/L (04/19/22 11:50 AM) MCHC [32.0-36.0 g/dL] 34.0 g/dL (04/19/22 11:50 AM) Osmolality [275-295 mOsm/kg] 274 mOsm/kg *LOW* (04/19/22 11:50 AM) Sodium Level [134-143 mmol/L] 136 mmol/L (04/19/22 11:50 AM) Lymph Absolute [1.2-3.4 K/mcL] 1.8 K/mcL (04/19/22 11:50 AM) Hct [37.0-52.0 %] 44.7 % (04/19/22 11:50 AM) Calcium Level [8.9-10.3 mg/dL] 9.5 mg/dL (04/19/22 11:50 AM) Coosa Absolute [0.1-0.6 K/mcL] 0.6 K/mcL (04/19/22 11:50 AM) Albumin Level [3.5-5.0 g/dL] 4.7 g/dL (04/19/22 11:50 AM) Protein Total [6.5-8.1 g/dL] 7.8 g/dL (04/19/22 11:50 AM) MCH [27.0-31.0 pg] 30.8 pg (04/19/22 11:50 AM) Neutro Absolute [1.4-6.5 K/mcL] 5.7 K/mc L (04/19/22 11:50 AM) Bilirubin Total [0.2-1.2 mg/dL] 0.7 mg/d L (04/19/22 11:50 AM) Hgb [12.0-18.0 g/dL] 15.2 g/dL (04/19/22 11:50 AM) Alk Phos [38-130 IntlUnit/L] 52 IntlUnit /L (04/19/22 11:50 AM) MPV [7.4-10.4 fL] 10.1 fL (04/19/22 11:50 AM) Platelets [130-400 K/mcL] 301 K/mcL (04/19/22 11:50 AM) CO2 [22-32 mmol/L] 30 mmol/L (04/19/22 11:50 AM) Eos Absolute [0.0-0.2 K/mcL] 0.2 K/mcL (04/19/22 11:50 AM) Lactic Acid Lvl [0.5-2.2 mmol/L] 1.1 mmo l/L (04/19/22 11:50 AM) eGFR Non-AA 94 *NA* (04/19/22 11:50 AM) eGFR AA 94 *NA* (04/19/22 11:50 AM) Chloride Level [98-111 mmol/L] 99 mmol/L (04/19/22 11:50 AM) RDW-CV [11.5-14.5 %] 12.2 % (04/19/22 11:50 AM) A/G Ratio 1.5 *NA* (04/19/22 11:50 AM) BUN/Creat Ratio [8.0-20.0] 15.4 (04/19/22 11:50 AM) Globulin 3.1 *NA* (04/19/22 11:50 AM) Imm Gran Absolute 0.02 *NA* (04/19/22 11:50 AM) Imm Gran Auto [0.0-0.5 %] 0.2 % (04/19/22 11:50 AM) NRBC Auto 0 *NA* (04/19/22 11:50 AM) NRBC Absolute 0 *NA* (04/19/22 11:50 AM) Creatinine Level [0.61-1.24 mg/dL] 1.04 mg/dL (04/19/22 11:50 AM) Anion Gap [3.0-12.0] 7.0 (04/19/22 11:50 AM) Eos, Auto [0.00-3.00 %] 2.00 % (04/19/22 11:50 AM) ESR, Westergren [0-15 mm/hr] 3 mm/hr (04/19/22 11:50 AM) Radiology Reports * Exam Date Time Procedure Performing Provider Status 04/19/22 12:08 PM XR Knee 3 Views Right Chong Funes th; Auth (Verified) Notes: (XR Knee 3 Views Right) Reason For Exam: right knee pain XR Knee 3 Views Right EXAM DESCRIPTION: XR Knee 3 Views Right 04/19/2022 INDICATION: RIGHT KNEE PAIN COMPARISON: None FINDINGS: No acute fracture, dislocation or bone destructive process. Joint spaces are maintained. No radiographic foreign bodies are seen. IMPRESSION: 1. No acute fracture, dislocation or bone destructive process. JOB #: [id number] Final Signed by: Gibson Shaw MD Signed (Electronic Signature): 04/19/2022 12:15 pm Vital Signs Most recent to oldest [Reference Range]: 1 2 3 Temperature Temporal Artery [36-38 Deg C] 36.6 Deg C (04/19/22 11:08 AM) Peripheral Pulse Rate [60-100 bpm] 57 bpm *LOW* (04/19/22 12:00 PM) 71 bpm (04/19/22 11:30 AM) 89 bpm (04/19/22 11:08 AM) Respiratory Rate [12-24 br/min] 14 br/min (04/19/22 11:08 AM) Blood Pressure [90-140/60-90 mmHg] 154/87mmHg *HI* (04/19/22 11:30 AM) 154/84mmHg *HI* (04/19/22 11:08 AM) Mean Arterial Pressure Cuff 107 mmHg (04/19/22 11:30 AM) Weight Dosing 108.00 kg (04/19/22 11:37 AM) Weight Estimated 108.00 kg (04/19/22 11:08 AM) Height/Length Dosing 189.000 cm (04/19/22 11:37 AM) Height/Length Estimated 189.000 cm (04/19/22 11:08 AM) Social History Social History Type Response Tobacco Never tobacco user T obacco Use:. Sex Hospital Discharge Instructions Patient Education 04/19/2022 12:20:03 Acute Knee Pain, Adult Acute Knee Pain, Adult Acute knee pain is sudden and may be caused by damage, swelling, or irritation of the muscles and tissues that support the knee. Pain may result from: ??? A fall. ??? An injury to the knee from twisting motions. ??? A hit to the knee. ??? Infection. Acute knee pain may go away on its own with time and rest. If it does not, your health care provider may order tests to find the cause of the pain. These may include: ??? Imaging tests, such as an X-ray, MRI, CT scan, or ultrasound. ??? Joint aspiration. In this test, fluid is removed from the knee and evaluated. ??? Arthroscopy. In this test, a lighted tube is inserted into the knee and an image is projected onto a TV screen. ??? Biopsy. In this test, a sample of tissue is removed from the body and studied under a microscope. Follow these instructions at home: If you have a knee sleeve or brace: ??? Wear the knee sleeve or brace as told by your health care provider. Remove it only as told by your health care provider. ??? Loosen it if your toes tingle, become numb, or turn cold and blue. ??? Keep it clean. ??? If the knee sleeve or brace is not waterproof: ??? Do not let it get wet. ??? Cover it with a watertight covering when you take a bath or shower. Activity ??? Rest your knee. ??? Do not do things that cause pain or make pain worse. ??? Avoid high-impact activities or exercises, such as running, jumping rope, or doing jumping jacks. ??? Work with a physical therapist to make a safe exercise program, as recommended by your health care provider. Do exercises as told by your physical therapist. Managing pain, stiffness, and swelling ??? If directed, put ice on the affected knee. To do this: ??? If you have a removable knee sleeve or brace, remove it as told by your health care provider. ??? Put ice in a plastic bag. ??? Place a towel between your skin and the bag. ??? Leave the ice on for 20 minutes, 2???3 times a day. ??? Remove the ice if your skin turns bright red. This is very important. If you cannot feel pain, heat, or cold, you have a greater risk of damage to the area. ??? If directed, use an elastic bandage to put pressure (compression) on your injured knee. This may control swelling, give support, and help with discomfort. ??? Raise (elevate) your knee above the level of your heart while you are sitting or lying down. ??? Sleep with a pillow under your knee. General instructions ??? Take fxbv-nyv-cmchdri and prescription medicines only as told by your health care provider. ??? Do not use any products that contain nicotine or tobacco, such as cigarettes, e-cigarettes, andchewing tobacco. If you need help quitting, ask your health care provider. ??? If you are overweight, work with your health care provider and a dietitian to set a weight-lossgoal that is healthy and reasonable for you. Extra weight can put pressure on your knee. ??? Pay attention to any changes in your symptoms. ??? Keep all follow-up visits. This is important. Contact a health care provider if: ??? Your knee pain continues, changes, or gets worse. ??? You have a fever along with knee pain. ??? Your knee feels warm to the touch or is red. ??? Your knee shani or locks up. Get help right away if: ??? Your knee swells, and the swelling becomes worse. ??? You cannot move your knee. ??? You have severe pain in your knee that cannot be managed with pain medicine. Summary ??? Acute knee pain can be caused by a fall, an injury, an infection, or damage, swelling, or irritation of the tissues that support your knee. ??? Your health care provider may perform tests to find out the cause of the pain. ??? Pay attention to any changes in your symptoms. Relieve your pain with rest, medicines, light activity, and the use of ice. ??? Get help right away if your knee swells, you cannot move your knee, or you have severe pain that cannot be managed with medicine. This information is not intended to replace advice given to you by your health care provider. Make sure you discuss any questions you have with your health care provider. Document Revised: 11/02/2020 Document Reviewed: 11/02/2020 [employer] Patient Education ?? 2021 [employer] 04/19/2022 12:19:53 Quadriceps Strain Quadriceps Strain A quadriceps strain is an injury to the muscles or tendons on the front of the thigh. The quadriceps muscles are used in straightening the knee and bending the hip. A strain occurs when the muscle isoverstretched or overloaded. There are three types of strains: ??? Grade 1 is a mild strain. It involves a stretching or minor tearing of your muscle fibers or tendons. You should have little, if any, trouble using your thigh. ??? Grade 2 is a moderate strain. It involves a partial tearing of your muscle fibers or tendons. You will have pain and some loss of strength in your thigh. ??? Grade 3 is a severe strain. It involves a complete tearing of your muscle fibers or tendons. Itcauses severe pain and loss of strength in your thigh. Recovery will take a few weeks or longer, depending on how bad your strain is. What are the causes? This injury is caused by overextending the muscles in the thigh. What increases the risk? The following factors may make you more likely to develop this injury: ??? Participating in: ??? Activities that involve jumping, sprinting, or sudden twisting. ??? Contact sports, such as football or soccer. ??? Having a previous injury to your thigh or knee. ??? Having poor strength and flexibility. ??? Not warming up properly before activity. ??? Having one leg that is much stronger than the other. ??? Exercising to the point of exhaustion. What are the signs or symptoms? Symptoms of this condition include: ??? Sudden, severe pain in your thigh. ??? Pain and tenderness over your quadriceps muscles. The pain gets worse when you use these muscles. ??? Muscle spasm in your thigh. ??? Swelling in your thigh. ??? Bruising. ??? Having trouble with tasks that involve using your quadriceps muscle, such as walking. ??? A crackling sound when the tendon is moved or touched. How is this diagnosed? This condition is diagnosed based on: ??? A physical exam. ??? Your medical history. ??? Imaging tests, such as: ??? X-rays. ??? Ultrasound. ??? MRI. How is this treated? Treatment for this condition may include: ??? Resting your leg and avoiding activities that cause pain. ??? Taking medicine to help reduce pain and inflammation. ??? Applying ice to the area to relieve swelling and inflammation. ??? Elevating the leg to reduce or prevent swelling. ??? Applying a compression wrap to the muscle. ??? Using crutches until you can walk without pain. ??? Working with a physical therapist on exercises to restore strength and flexibility in your thigh. In rare cases, surgery may be needed. Follow these instructions at home: Managing pain, stiffness, and swelling ??? If directed, put ice on the injured area. ??? Put ice in a plastic bag. ??? Place a towel between your skin and the bag. ??? Leave the ice on for 20 minutes, 2???3 times a day. ??? Raise (elevate) the injured area above the level of your heart while you are sitting or lying down. Activity ??? Do not use the injured leg to support your body weight until your health care provider says that you can. Use crutches as told by your health care provider. ??? Do exercises as told by your health care provider. ??? Return to your normal activities as told by your health care provider. Ask your health care provider what activities are safe for you. General instructions ??? Take aqzv-vpw-lkvmgoo and prescription medicines only as told by your health care provider. ??? Use compression wraps to apply pressure as told by your health care provider. ??? Keep all follow-up visits as told by your health care provider. This is important. How is this prevented? Warm up and stretch before being active. ??? Cool down and stretch after being active. ??? Give your body time to rest between periods of activity. ??? Maintain physical fitness, including: ??? Strength. ??? Flexibility. ??? Be safe and responsible while being active. This will help you to avoid falls. ??? Do at least 150 minutes of moderate-intensity exercise each week, such as brisk walking or water aerobics. Contact a health care provider if: ??? Your pain, bruising, or tenderness gets worse, even with treatment. ??? Your leg becomes weaker. Summary ??? A quadriceps strain is an injury to the muscles or tendons on the front of the thigh. ??? This injury is caused by overextending the muscles in the thigh. ??? Treatment may include rest, ice, medicines, and physical therapy. In rare cases, surgery may beneeded. This information is not intended to replace advice given to you by your health care provider. Make sure you discuss any questions you have with your health care provider. Document Revised: 09/11/2019 Document Reviewed: 04/16/2019 [employer] Patient Education ?? 2021 [employer]. 04/19/2022 12:19:48 Elastic Bandage and RICE Therapy Elastic Bandage and RICE Therapy Elastic bandages come in different shapes and sizes. They generally provide support to your injury and reduce swelling while you are healing, but they can perform different functions. Your health care provider will help you to decide what is best for your protection, recovery, or rehabilitation after an injury. The routine care of many injuries includes rest, ice, compression, and elevation (RICE therapy). RICE therapy is often recommended for injuries to soft tissues, such as muscle strain, sprains, bruises, and overuse injuries. It can also be used for some bone injuries. Using RICE therapy can help to relieve pain and lessen swelling. What are some general tips for using an elastic bandage? Use the bandage as directed by the maker of the bandage that you are using. ??? Do not wrap the bandage too tightly. This may block (cut off) the circulation in the arm or legin the area below the bandage. ??? If part of your body beyond the bandage becomes blue, numb, cold, swollen, or more painful, your bandage is probably too tight. If this occurs, remove your bandage and reapply it more loosely. ??? Remove and reapply an elastic bandage every 3???4 hours or as told by your health care provider. ??? See your health care provider if the bandage seems to be making your problems worse rather thanbetter. How to care for your injury with RICE therapy Rest Rest your injury. This may help with the healing process. Rest usually involves limiting your normal activities and not using the injured part of your body. Generally, you can return to your normal activities when your health care provider says it is okay and you can do them without much discomfort. If you rest the injury too much, it may not heal as well. Some injuries heal better with early movement instead of resting for too long. Talk with your health care provider about how you should limityour activities and whether you should start ngiyh-hu-boauny exercises for your injury. Ice Ice your injury to lessen swelling and pain. Do not apply ice directly to your skin. ??? Put ice in a plastic bag. ??? Place a towel between your skin and the bag. ??? Leave the ice on for 20 minutes, 2???3 times a day. Use ice on as many days as told by your health care provider. Compression Put pressure (compression) on your injured area to control swelling, give support, and help with discomfort. Compression may be done with an elastic bandage. Elevation Raise (elevate) your injured area to lessen swelling and pain. If possible, elevate your injured area at or above the level of your heart or the center of your chest. Contact a health care provider if: ??? Your pain and swelling continue. ??? Your symptoms are getting worse rather than improving. Having these problems may mean that you need further evaluation or imaging tests, such as X-rays kaitlynn MRI. Sometimes, X-rays may not show a small broken bone (fracture) until days after the injury happened. Make a follow-up appointment with your health care provider. Ask your health care provider,or the department that is doing the imaging test, when your results will be ready. Get help right away if: ??? You have sudden severe pain at or below the area of your injury. ??? You have redness or increased swelling around your injury. ??? You have tingling or numbness at or below the area of your injury and it does not improve afteryou remove the elastic bandage. Summary ??? Elastic bandages provide support to your injury and reduce swelling while you are healing. Yourhealth care provider will help you decide which type of elastic bandage is best for your injury. ??? Do not wrap the bandage too tightly. This may block (cut off) the circulation in the arm or legin the area below the bandage. ??? Putting pressure (compression) on your injured area with an elastic bandage is part of RICE therapy. RICE therapy includes rest, ice, compression, and elevation. This treatment is recommended forthe routine care of many injuries. This information is not intended to replace advice given to you by your health care provider. Make sure you discuss any questions you have with your health care provider. Document Revised: 07/15/2020 Document Reviewed: 02/07/2018 [employer] Patient Education ?? 2020 [employer]. Follow Up Care 04/19/2022 11:07:57 With:Follow up with specialist Address: When:1 month Comments:[facility],??they may do further diagnostic testing such as MRI or??further evaluation??[facility] [phone] With:VIOLETTA Ricci Address: [address] [place] [id number] When: Unknown Comments:Your evaluation in the emergency department today??was performed by floridalma ESPARZA.The Toradol as needed, you can utilize OTC Voltaren gel??if desiredKeep Justice wrap in place over the next 4 to 5 days to help with??inflammation??and stabilityUse crutches??with minimal weightbearing to start to weight-bear as tolerated Physician Emergency department Note * VIOLETTA Ricci: PERFORM Event Display: ED Note Physician Authored Date: [id number] SALOME HOWARD :1980 Age:41 years Sex:Male Visit Date:04/19/2022 Basic Information Time Seen: VIOLETTA Ricci / 04/19/2022 11:09 Chief Complaint Pt reports atraumatic R knee pain and swelling that started on Saturday. History Of Present Illness: Patient is a 41-year-old male presents [facility]??as he has had increasing knee pain over the last??3 days. ??He notes that he was on Saturday in the [place] and after that he has significant pain. ??Is primarily anterior portion??in the distal quadricep. He has had some mild erythema to this area significant swelling and difficulty ambulating. ??He presented to the [facility] today with concern for septic joint and comes to the emergency department Review of Systems: Constitutional: [ No fevers, ??No chills, ??No sweats] Respiratory: ??[No shortness of breath, ??No cough] Cardiovascular: ??[No Chest pain, ??No palpitations, ??No syncope] Genitourinary: [ No hematuria] Musculoskeletal: Pain is stated HPI Integumentary: [No rash, ??No pruritus, ??No abrasions] Neurologic: [Alert & oriented X 4] Psychiatric: ??[No anxiety, ??No depression] Physical Exam Vitals & Measurements T:??36.6?C ??(Temporal Artery)?? HR:??57??(Peripheral)?? RR:??14?? BP:??154/87?? SpO2:??98%?? HT:??189.000??cm?? WT:??108.00??kg??(Estimated)?? Pain Score:??7?? O2 Therapy:??Room air?? Patient alert oriented age-appropriate well-nourished nontoxic Normocephalic atraumatic Neck supple nontender EOM intact, PERRLA, sclera nonicteric Right lower extremity is examined, there is minimal erythema, passive range of motion is intact without??significant discomfort, active range of motion??with primarily engagement of the quadricep muscle??is painful but is able to be??performed There is no tenderness to the joint line??there is negative Homans' sign. Neuro exam intact without focal deficit Appropriate mood and affect Procedure Side ultrasound reveals some fraying of the quadriceps tendon??with significant amount of fluid??about the quadriceps tendon however there is no??concern for hemarthrosis No Qualifying Data Assessment/Plan 1.??Strain of right knee??[id number].[email or web address] Will be diagnosed with a knee strain, I discussed with him the fact that his laboratory evaluation is unremarkable.?? He will follow-up with orthopedics will be placed on??oral Toradol which helped him significantly here in the emergency department??have given him crutches to use as desired and if he has any new or worsening symptoms he will [facility]. Ordered: ketorolac 10 mg oral tablet, 10 mg = 1 tab, Oral, TID, PRN as needed for pain, X 3 days, # 9 tab, 0Refill(s), 04/22/22 13:17:00 EST, Pharmacy: [facility] #[id number], 189, cm, 04/19/22 11:37:00EST, Height/Length Dosing, 108, kg, 04/19/22 11:37:00 EST, Weight Dosing ?? Patient Education Acute Knee Pain, Adult Quadriceps Strain Elastic Bandage and RICE Therapy Follow Up With When Contact Information Follow up with specialist Within 1 month Additional Instructions: Contact the [facility] to see if orthopedic referral is appropriate,??they may do further diagnostic testing such as MRI or??further evaluation??if desired [facility] desired, [phone] VIOLETTA Ricci [address] [place] [address] Additional Instructions: Your evaluation in the emergency department today??was performed by above VILMA. ?? The Toradol as needed, you can utilize OTC Voltaren gel??if desired Keep Justice wrap in place over the next 4 to 5 days to help with??inflammation??and stability Use crutches??with minimal weightbearing to start to weight-bear as tolerated Medication Reconciliation New Prescription ketorolac (ketorolac 10 mg oral tablet)1 tab Oral (given by mouth) 3 times a day as needed as needed for pain for 3 Days. Refills: 0. ?? Unchanged buPROPion (Wellbutrin SR) ?? omeprazole Problem List/Past Medical History Ongoing No qualifying data Historical No qualifying data Medication Administration Given Toradol, 15 mg, IV Push Allergies No Known Allergies Social History Alcohol Current, Beer, Daily Electronic Cigarette/Vaping Electronic Cigarette Use: Never. Tobacco Never tobacco user Tobacco Use:. Diagnostic Results XR Knee 3 Views Right 04/19/2022 12:18 EST XR Knee 3 Views Right ?? 04/19/22 12:15:52 EXAM DESCRIPTION: XR Knee 3 Views Right ?? 04/19/2022 ?? INDICATION: RIGHT KNEE PAIN ?? COMPARISON: None ?? FINDINGS: No acute fracture, dislocation or bone destructive process. Joint spaces are maintained. No radiographic foreign bodies are seen. ?? IMPRESSION: 1. No acute fracture, dislocation or bone destructive process. ? JOB #: [id number] Electronically Signed By: ?? Signed By: Gibson Shaw MD Lab Results CBC and Differential?? LATEST RESULTS?? WBC?? 04/19/22 11:50?? 8.4?? RBC?? 04/19/22 11:50?? 4.94?? Hgb?? 04/19/22 11:50?? 15.2?? Hct?? 04/19/22 11:50?? 44.7?? MCV?? 04/19/22 11:50?? 90.5?? MCH?? 04/19/22 11:50?? 30.8?? MCHC?? 04/19/22 11:50?? 34.0?? RDW-CV?? 04/19/22 11:50?? 12.2?? Platelets?? 04/19/22 11:50?? 301?? MPV?? 04/19/22 11:50?? 10.1?? Neutro Auto?? 04/19/22 11:50?? 68.2?? Lymph Auto?? 04/19/22 11:50?? 21.6?? Coosa Auto?? 04/19/22 11:50?? 6.9?? Eos, Auto?? 04/19/22 11:50?? 2.00?? Basophil Auto?? 04/19/22 11:50?? 1.1 ??High?? Imm Gran Auto?? 04/19/22 11:50?? 0.2?? NRBC Auto?? 04/19/22 11:50?? 0?? Neutro Absolute?? 04/19/22 11:50?? 5.7?? Lymph Absolute?? 04/19/22 11:50?? 1.8?? Coosa Absolute?? 04/19/22 11:50?? 0.6?? Eos Absolute?? 04/19/22 11:50?? 0.2?? Baso Absolute?? 04/19/22 11:50?? 0.1?? Imm Gran Absolute?? 04/19/22 11:50?? 0.02?? NRBC Absolute?? 04/19/22 11:50?? 0? Miscellaneous Hematology?? LATEST RESULTS?? ESR, Westergren?? 04/19/22 11:50?? 3? Routine Chemistry?? LATEST RESULTS?? Sodium Level?? 04/19/22 11:50?? 136?? Potassium Level?? 04/19/22 11:50?? 4.4?? Chloride Level?? 04/19/22 11:50?? 99?? CO2?? 04/19/22 11:50?? 30?? Alk Phos?? 04/19/22 11:50?? 52?? AST?? 04/19/22 11:50?? 42 ??High?? ALT?? 04/19/22 11:50?? 56?? BUN?? 04/19/22 11:50?? 16?? Glucose Level?? 04/19/22 11:50?? 105?? Creatinine Level?? 04/19/22 11:50?? 1.04?? BUN/Creat Ratio?? 04/19/22 11:50?? 15.4?? eGFR AA?? 04/19/22 11:50?? 94?? eGFR Non-AA?? 04/19/22 11:50?? 94?? Calcium Level?? 04/19/22 11:50?? 9.5?? Protein Total?? 04/19/22 11:50?? 7.8?? Albumin Level?? 04/19/22 11:50?? 4.7?? Globulin?? 04/19/22 11:50?? 3.1?? A/G Ratio?? 04/19/22 11:50?? 1.5?? Bilirubin Total?? 04/19/22 11:50?? 0.7?? Anion Gap?? 04/19/22 11:50?? 7.0?? Lactic Acid Lvl?? 04/19/22 11:50?? 1.1?? Osmolality?? 04/19/22 11:50?? 274 ??Low? Electronically Signed on 04/19/22 06:49 PM VIOLETTA Ricci Reviewed by: Porfirio Hare DO Emergency department Discharge instructions * VIOLETTA Ricci: PERFORM Event Display: ED Discharge Information Authored Date: [id number] SALOME HOWARD :1980 Age:41 years Sex:Male Visit Date:04/19/2022 Discharge Instructions We would like to thank you for allowing us to assist you with your healthcare needs. The following includes patient education materials and information regarding your injury/illness. Diagnosis from Today's Visit Strain of right knee Discharge Vitals Temperature??(Temporal Artery) 97.9 ??F (36.6 ??C) Heart Rate??(Peripheral) 89 Respiratory Rate?? 14 Blood Pressure?? 154/84?? Height?? 74.41 in (189.000 cm) Weight??(Estimated) 238.14 lb (108.00 kg) Allergies No Known Allergies What to Do Next You Need to Schedule the Following Appointments Follow Up with??Follow up with specialist When:??Within 1 month [facility]: [facility],??they may do further diagnostic testing such as MRI or??further evaluation??if desired Contact [facility] if desired, [phone] Follow Up with??VIOLETTA Ricci Why: Your evaluation in the emergency department today??was performed by floridalma ESPARZA. ?? The Toradol as needed, you can utilize OTC Voltaren gel??if desired Keep Justice wrap in place over the next 4 to 5 days to help with??inflammation??and stability Use crutches??with minimal weightbearing to start to weight-bear as tolerated Where: [address] [place] [address] You were treated today on an emergency basis; it may be andino to contact your primary care provider to notify them of your visit today. You may have been referred to your regular doctor or a specialist, please follow up as instructed. If your condition worsens or you can't get in to see the doctor, contact the Emergency Department. Medications What How Much When Why Instructions Next Dose New ketorolac (ketorolac 10 mg oral tablet) 1 tab Oral (given by mouth) 3 times a day as needed for as needed for pain Strain of right knee Duration: 3 Days Pickup at [facility] #[id number] Unchanged buPROPion (Wellbutrin SR) Unchanged omeprazole Pharmacy Information [facility] #[id number]: [address] [place], [place] [phone] Education Materials Acute Knee Pain, Adult Acute knee pain is sudden and may be caused by damage, swelling, or irritation of the muscles and tissues that support the knee. Pain may result from: ? A fall. ? An injury to the knee from twisting motions. ? A hit to the knee. ? Infection. Acute knee pain may go away on its own with time and rest. If it does not, your health care provider may order tests to find the cause of the pain. These may include: ? Imaging tests, such as an X-ray, MRI, CT scan, or ultrasound. ? Joint aspiration. In this test, fluid is removed from the knee and evaluated. ? Arthroscopy. In this test, a lighted tube is inserted into the knee and an image is projected onto a TV screen. ? Biopsy. In this test, a sample of tissue is removed from the body and studied under a microscope. Follow these instructions at home: If you have a knee sleeve or brace: ? Wear the knee sleeve or brace as told by your health care provider. Remove it only as told by your health care provider. ? Loosen it if your toes tingle, become numb, or turn cold and blue. ? Keep it clean. ? If the knee sleeve or brace is not waterproof: ? Do not let it get wet. ? Cover it with a watertight covering when you take a bath or shower. Activity ? Rest your knee. ? Do not do things that cause pain or make pain worse. ? Avoid high-impact activities or exercises, such as running, jumping rope, or doing jumping jacks. ? Work with a physical therapist to make a safe exercise program, as recommended by your health care provider. Do exercises as told by your physical therapist. Managing pain, stiffness, and swelling ? If directed, put ice on the affected knee. To do this: ? If you have a removable knee sleeve or brace, remove it as told by your health care provider. ? Put ice in a plastic bag. ? Place a towel between your skin and the bag. ? Leave the ice on for 20 minutes, 2???3 times a day. ? Remove the ice if your skin turns bright red. This is very important. If you cannot feel pain, heat, or cold, you have a greater risk of damage to the area. ? If directed, use an elastic bandage to put pressure (compression) on your injured knee. This may control swelling, give support, and help with discomfort. ? Raise (elevate) your knee above the level of your heart while you are sitting or lying down. ? Sleep with a pillow under your knee. General instructions ? Take vlbz-ihe-igeatcu and prescription medicines only as told by your health care provider. ? Do not use any products that contain nicotine or tobacco, such as cigarettes, e- cigarettes, and chewing tobacco. If you need help quitting, ask your health care provider. ? If you are overweight, work with your health care provider and a dietitian to set a weight-loss goal that is healthy and reasonable for you. Extra weight can put pressure on your knee. ? Pay attention to any changes in your symptoms. ? Keep all follow-up visits. This is important. Contact a health care provider if: ? Your knee pain continues, changes, or gets worse. ? You have a fever along with knee pain. ? Your knee feels warm to the touch or is red. ? Your knee shani or locks up. Get help right away if: ? Your knee swells, and the swelling becomes worse. ? You cannot move your knee. ? You have severe pain in your knee that cannot be managed with pain medicine. Summary ? Acute knee pain can be caused by a fall, an injury, an infection, or damage, swelling, or irritation of the tissues that support your knee. ? Your health care provider may perform tests to find out the cause of the pain. ? Pay attention to any changes in your symptoms. Relieve your pain with rest, medicines, light activity, and the use of ice. ? Get help right away if your knee swells, you cannot move your knee, or you have severe pain that cannot be managed with medicine. This information is not intended to replace advice given to you by your health care provider. Make sure you discuss any questions you have with your health care provider. Document Revised: 11/02/2020 Document Reviewed: 11/02/2020 [employer] Patient Education ?? 2021 [employer] Quadriceps Strain A quadriceps strain is an injury to the muscles or tendons on the front of the thigh. The quadriceps muscles are used in straightening the knee and bending the hip. A strain occurs when the muscle isoverstretched or overloaded. There are three types of strains: ? Grade 1 is a mild strain. It involves a stretching or minor tearing of your muscle fibers or tendons. You should have little, if any, trouble using your thigh. ? Grade 2 is a moderate strain. It involves a partial tearing of your muscle fibers or tendons. You will have pain and some loss of strength in your thigh. ? Grade 3 is a severe strain. It involves a complete tearing of your muscle fibers or tendons. It causes severe pain and loss of strength in your thigh. Recovery will take a few weeks or longer, depending on how bad your strain is. What are the causes? This injury is caused by overextending the muscles in the thigh. What increases the risk? The following factors may make you more likely to develop this injury: ? Participating in: ? Activities that involve jumping, sprinting, or sudden twisting. ? Contact sports, such as football or soccer. ? Having a previous injury to your thigh or knee. ? Having poor strength and flexibility. ? Not warming up properly before activity. ? Having one leg that is much stronger than the other. ? Exercising to the point of exhaustion. What are the signs or symptoms? Symptoms of this condition include: ? Sudden, severe pain in your thigh. ? Pain and tenderness over your quadriceps muscles. The pain gets worse when you use these muscles. ? Muscle spasm in your thigh. ? Swelling in your thigh. ? Bruising. ? Having trouble with tasks that involve using your quadriceps muscle, such as walking. ? A crackling sound when the tendon is moved or touched. How is this diagnosed? This condition is diagnosed based on: ? A physical exam. ? Your medical history. ? Imaging tests, such as: ? X-rays. ? Ultrasound. ? MRI. How is this treated? Treatment for this condition may include: ? Resting your leg and avoiding activities that cause pain. ? Taking medicine to help reduce pain and inflammation. ? Applying ice to the area to relieve swelling and inflammation. ? Elevating the leg to reduce or prevent swelling. ? Applying a compression wrap to the muscle. ? Using crutches until you can walk without pain. ? Working with a physical therapist on exercises to restore strength and flexibility in your thigh. In rare cases, surgery may be needed. Follow these instructions at home: Managing pain, stiffness, and swelling ? If directed, put ice on the injured area. ? Put ice in a plastic bag. ? Place a towel between your skin and the bag. ? Leave the ice on for 20 minutes, 2???3 times a day. ? Raise (elevate) the injured area above the level of your heart while you are sitting or lying down. Activity ? Do not use the injured leg to support your body weight until your health care provider says that you can. Use crutches as told by your health care provider. ? Do exercises as told by your health care provider. ? Return to your normal activities as told by your health care provider. Ask your health care provider what activities are safe for you. General instructions ? Take lqjv-zky-axnwwgj and prescription medicines only as told by your health care provider. ? Use compression wraps to apply pressure as told by your health care provider. ? Keep all follow-up visits as told by your health care provider. This is important. How is this prevented? Warm up and stretch before being active. ? Cool down and stretch after being active. ? Give your body time to rest between periods of activity. ? Maintain physical fitness, including: ? Strength. ? Flexibility. ? Be safe and responsible while being active. This will help you to avoid falls. ? Do at least 150 minutes of moderate-intensity exercise each week, such as brisk walking or water aerobics. Contact a health care provider if: ? Your pain, bruising, or tenderness gets worse, even with treatment. ? Your leg becomes weaker. Summary ? A quadriceps strain is an injury to the muscles or tendons on the front of the thigh. ? This injury is caused by overextending the muscles in the thigh. ? Treatment may include rest, ice, medicines, and physical therapy. In rare cases, surgery may be needed. This information is not intended to replace advice given to you by your health care provider. Make sure you discuss any questions you have with your health care provider. Document Revised: 09/11/2019 Document Reviewed: 04/16/2019 [employer] Patient Education ?? 2021 [employer] Elastic Bandage and RICE Therapy Elastic bandages come in different shapes and sizes. They generally provide support to your injury and reduce swelling while you are healing, but they can perform different functions. Your health care provider will help you to decide what is best for your protection, recovery, or rehabilitation after an injury. The routine care of many injuries includes rest, ice, compression, and elevation (RICE therapy). RICE therapy is often recommended for injuries to soft tissues, such as muscle strain, sprains, bruises, and overuse injuries. It can also be used for some bone injuries. Using RICE therapy can help to relieve pain and lessen swelling. What are some general tips for using an elastic bandage? Use the bandage as directed by the maker of the bandage that you are using. ? Do not wrap the bandage too tightly. This may block (cut off) the circulation in the arm or leg in the area below the bandage. ? If part of your body beyond the bandage becomes blue, numb, cold, swollen, or more painful, your bandage is probably too tight. If this occurs, remove your bandage and reapply it more loosely. ? Remove and reapply an elastic bandage every 3???4 hours or as told by your health care provider. ? See your health care provider if the bandage seems to be making your problems worse rather than better. How to care for your injury with RICE therapy Rest Rest your injury. This may help with the healing process. Rest usually involves limiting your normal activities and not using the injured part of your body. Generally, you can return to your normal activities when your health care provider says it is okay and you can do them without much discomfort. If you rest the injury too much, it may not heal as well. Some injuries heal better with early movement instead of resting for too long. Talk with your health care provider about how you should limityour activities and whether you should start zenpf-iw-yncqkx exercises for your injury. Ice Ice your injury to lessen swelling and pain. Do not apply ice directly to your skin. ? Put ice in a plastic bag. ? Place a towel between your skin and the bag. ? Leave the ice on for 20 minutes, 2???3 times a day. Use ice on as many days as told by your health care provider. Compression Put pressure (compression) on your injured area to control swelling, give support, and help with discomfort. Compression may be done with an elastic bandage. Elevation Raise (elevate) your injured area to lessen swelling and pain. If possible, elevate your injured area at or above the level of your heart or the center of your chest. Contact a health care provider if: ? Your pain and swelling continue. ? Your symptoms are getting worse rather than improving. Having these problems may mean that you need further evaluation or imaging tests, such as X-rays kaitlynn MRI. Sometimes, X-rays may not show a small broken bone (fracture) until days after the injury happened. Make a follow-up appointment with your health care provider. Ask your health care provider,or the department that is doing the imaging test, when your results will be ready. Get help right away if: ? You have sudden severe pain at or below the area of your injury. ? You have redness or increased swelling around your injury. ? You have tingling or numbness at or below the area of your injury and it does not improve after youremove the elastic bandage. Summary ? Elastic bandages provide support to your injury and reduce swelling while you are healing. Your health care provider will help you decide which type of elastic bandage is best for your injury. ? Do not wrap the bandage too tightly. This may block (cut off) the circulation in the arm or leg in the area below the bandage. ? Putting pressure (compression) on your injured area with an elastic bandage is part of RICE therapy. RICE therapy includes rest, ice, compression, and elevation. This treatment is recommended for theroutine care of many injuries. This information is not intended to replace advice given to you by your health care provider. Make sure you discuss any questions you have with your health care provider. Document Revised: 07/15/2020 Document Reviewed: 02/07/2018 [employer] Patient Education ?? 2020 [employer] Tests Performed Radiology XR Knee 3 Views Right 04/19/2022 12:18 EST Medications and Immunizations Administered Given Toradol, 15 mg, IV Push Lab Test Name Test Result Date/Time WBC 8.4 K/mcL 04/19/2022 11:50 EST RBC 4.94 Million/mcL 04/19/2022 11:50 EST Hgb 15.2 g/dL 04/19/2022 11:50 EST Hct 44.7 % 04/19/2022 11:50 EST MCV 90.5 fL 04/19/2022 11:50 EST MCH 30.8 pg 04/19/2022 11:50 EST MCHC 34.0 g/dL 04/19/2022 11:50 EST RDW-CV 12.2 % 04/19/2022 11:50 EST Platelets 301 K/mcL 04/19/2022 11:50 EST MPV 10.1 fL 04/19/2022 11:50 EST Neutro Auto 68.2 % 04/19/2022 11:50 EST Lymph Auto 21.6 % 04/19/2022 11:50 EST Coosa Auto 6.9 % 04/19/2022 11:50 EST Eos, Auto 2.00 % 04/19/2022 11:50 EST Basophil Auto 1.1 % 04/19/2022 11:50 EST Imm Gran Auto 0.2 % 04/19/2022 11:50 EST NRBC Auto 0 04/19/2022 11:50 EST Neutro Absolute 5.7 K/mcL 04/19/2022 11:50 EST Lymph Absolute 1.8 K/mcL 04/19/2022 11:50 EST Coosa Absolute 0.6 K/mcL 04/19/2022 11:50 EST Eos Absolute 0.2 K/mcL 04/19/2022 11:50 EST Baso Absolute 0.1 K/mcL 04/19/2022 11:50 EST Imm Gran Absolute 0.02 04/19/2022 11:50 EST NRBC Absolute 0 04/19/2022 11:50 EST ESR, Westergren 3 mm/hr 04/19/2022 11:50 EST Sodium Level 136 mmol/L 04/19/2022 11:50 EST Potassium Level 4.4 mmol/L 04/19/2022 11:50 EST Chloride Level 99 mmol/L 04/19/2022 11:50 EST CO2 30 mmol/L 04/19/2022 11:50 EST Alk Phos 52 IntlUnit/L 04/19/2022 11:50 EST AST 42 IntlUnit/L 04/19/2022 11:50 EST ALT 56 IntlUnit/L 04/19/2022 11:50 EST BUN 16 mg/dL 04/19/2022 11:50 EST Glucose Level 105 mg/dL 04/19/2022 11:50 EST Creatinine Level 1.04 mg/dL 04/19/2022 11:50 EST BUN/Creat Ratio 15.4 04/19/2022 11:50 EST eGFR AA 94 04/19/2022 11:50 EST eGFR Non-AA 94 04/19/2022 11:50 EST Calcium Level 9.5 mg/dL 04/19/2022 11:50 EST Protein Total 7.8 g/dL 04/19/2022 11:50 EST Albumin Level 4.7 g/dL 04/19/2022 11:50 EST Globulin 3.1 04/19/2022 11:50 EST A/G Ratio 1.5 04/19/2022 11:50 EST Bilirubin Total 0.7 mg/dL 04/19/2022 11:50 EST Anion Gap 7.0 04/19/2022 11:50 EST Lactic Acid Lvl 1.1 mmol/L 04/19/2022 11:50 EST Osmolality 274 mOsm/kg 04/19/2022 11:50 EST Patient/Information Technology Intern Signature Patient Name:SALOME HOWARD I have received this information and my questions have been answered. Patient/Information Technology Intern Name: Patient/Information Technology Intern Signature: Relationship to Patient: Witness Name/Signature: Date: Electronically Signed on: 04/19/2022 13:20 ESTSigned by: XR Knee - right 3 Views * Gibson Shaw MD: VERIFY, VERIFY Event Display: Report EXAM DESCRIPTION: XR Knee 3 Views Right 04/19/2022 INDICATION: RIGHT KNEE PAIN COMPARISON: None FINDINGS: No acute fracture, dislocation or bone destructive process. Joint spaces are maintained. No radiographic foreign bodies are seen. IMPRESSION: 1. No acute fracture, dislocation or bone destructive process. JOB #: [id number] Final Signed by: Gibson Shaw MD Signed (Electronic Signature): 04/19/2022 12:15 pm
--- OUTSIDE RECORDS SUMMARY | 2024-06-27 20:25 | XMS_ITS | Clinical Summary ---
Author Organization [facility] Address [address] [place] [address] Care Team Providers Care Network Operations Project Manager Name Role Phone Ed Hahn MD Primary Care Provider [phone] Social History Tobacco Use Types Packs/Day Years Used Date Smoking Tobacco: Never Assessed Sex and Gender Information Value Date Recorded Sex Assigned at Not on file Legal Sex Male 18:43 EST Gender Identity Not on file Sexual Orientation Not on file Plan of Treatment Health Maintenance Due Date Last Done Comments Hepatitis C Screen 1980 Hepatitis B Vaccine (1 of 3 - 19+ 3-dose series) 12/18 COVID-19 Vaccine ( season) 2024 Care Teams Network Operations Project Manager Relationship Specialty Start Date End Date Ed Hahn MD PCP - General 04/13/15
--- OUTSIDE RECORDS SUMMARY | 2024-06-27 20:25 | XMS_ITS | Referral Summary ---
Author Organization [facility] Address [address] [place] [address] Care Team Providers Care Baseball Inspector And Repairer Name Role Phone Ed Hahn MD Primary Care Provider [phone] Social History Tobacco Use Types Packs/Day Years Used Date Smoking Tobacco: Never Assessed Sex and Gender Information Value Date Recorded Sex Assigned at Not on file Legal Sex Male 18:43 EST Gender Identity Not on file Sexual Orientation Not on file Plan of Treatment Not on file Care Teams Baseball Inspector And Repairer Relationship Specialty Start Date End Date Ed Hahn MD PCP - General 04/13/15
--- OUTSIDE RECORDS SUMMARY | 2024-06-27 20:25 | XMS_ITS | Continuity of Care Document ---
Author Organization [facility] Address [address] [place] [id number] Care Team Providers Care Ladies Attendant Name Role Phone MATTHEW DASH APRN Primary Care Physician Encounter LTTL_PA FIN NBR [id number] Date(s): 07/01/23 - 07/01/23 [facility] [address] [place] [address]- [place] Encounter Diagnosis Other forms of dyspnea(Final) - Discharge Disposition: Home or Self Care Attending Physician: LESTER SCHREIBER MD Admitting Physician: LESTER SCHREIBER MD Referring Physician: MATTHEW DASH APRN Allergies, Adverse Reactions, Alerts No Known Allergies Medications omeprazole 0 Refill(s) Start Date: 04/19/22 Status: Ordered Wellbutrin SR 0 Refill(s) Start Date: 04/19/22 Status: Ordered Vital Signs Most recent to oldest [Reference Range]: 1 Weight 112 kg (06/27/23 1:35 PM) Weight Dosing 112.000 kg (06/27/23 1:35 PM) Height 193 cm (06/27/23 1:35 PM) Body Mass Index 30.07 kg/m2 (06/27/23 1:35 PM) Social History Social History Type Response Tobacco Never tobacco user T obacco Use:. Sex Patient Care team information Care Team Personnel Name: MATTHEW DASH APRN Position: No Access Member Role: Primary Care Physician Address: Address: [address] [address]
--- OUTSIDE RECORDS SUMMARY | 2024-06-27 20:25 | XMS_ITS | Encounter Summary ---
Author Organization [facility] Address [address] [place] [id number] Care Team Providers Care Unitizer Name Role Phone Unavailable Primary Care Provider Unavailabl e Encounter Details Date Type Department Care Team (Late st Contact Info) Description 04/03/2014 Results Only [facility] - [facility] [place] [address] [place] [address] Ed Hahn MD [address] [facility] [address] [place] [address] Social History Tobacco Use Types Packs/Day Years Used Date Smoking Tobacco: Never Assessed Sex and Gender Information Value Date Recorded Sex Assigned at Not on file Legal Sex Male 18:43 EST Gender Identity Not on file Sexual Orientation Not on file documented as of this encounter Plan of Treatment Not on file documented as of this encounter Procedures Procedure Name Priority Date/Time Associated Diagnosis Comments GLUCOSE 6-PHOSPHATE DEHYDROGENASE ENZYME ACTIVITY, BLD Routine 04/03/2014 12:00 EDT documented in this encounter Results * CIOLGRO-6-VVBFRLZIL DEHYDROGENASE, QUANTITATIVE (04/03/2014 12:00 EDT) Iccdedn-4-Lzxxtlxw e Dehydrogenase Quant 10.6 8.8 - 13.4 U/g Hb [facility] Comment: Performed or Referred by: [facility] Labs: [facility], [address] , [place] [address], Lab Dir: Servando Blandon III, MD 04/03/2014 12:0 0 EDT 04/03/2014 20:45 EDT us Ed Hahn MD CHEMISTRY & BLOOD GAS ORDERA BLES Final Result [facility] [address] [place] [address] documented in this encounter Visit Diagnoses Not on filedocumented in this encounter
--- OUTSIDE RECORDS SUMMARY | 2024-06-27 20:25 | XMS_ITS | Clinical Summary ---
Author Organization [facility] [place] [address] Care Team Providers Care Director Of Agronomy Name Role Phone Carol Palomino APRN Primary Care Provider Social History Tobacco Use Types Packs/Day Years Used Date Smoking Tobacco: Never Assessed Sex and Gender Information Value Date Recorded Sex Assigned at Not on file Gender Identity Not on file Sexual Orientation Not on file Plan of Treatment Health Maintenance Due Date Last Done Comments HIV screen 2000 Hepatitis C Screening 2000 Lipid Screening 2000 Hepatitis B vaccine (0-59 yrs) (1) 2001 Tetanus/Diphtheria/Pertussis Vaccines (1 - Tdap) 12/18 Covid-19 Vaccine ( - 2023- season) 2024 Influenza (Flu) vaccine (1 o f 1 - Influenza standard series) 02/02/2024 Care Teams Director Of Agronomy Relationship Specialty Start Date End Date Carol Palomino APRN [address] [place] [address] PCP - General Internal Medicine 05/31/23
--- OUTSIDE RECORDS SUMMARY | 2024-06-27 20:25 | XMS_ITS | Encounter Summary ---
Author Organization [facility] Address [facility] [place] [address] Care Team Providers Care Cardiopulmonary Technician And Eeg Tech Name Role Phone Arlen Palominobobby Oreilly APRN Primary Care Provider [phone] Encounter Details Date Type Department Care Team (Latest Contact Info) Description 07/01/2023 10:20 AM EST Ext Surgery or Single Event [facility] [address] [facility] [place] [address] Oliver Glynn MD [facility] [place] [address] Dyspnea, unspecified type Social History Tobacco Use Types Packs/Day Years Used Date Smoking Tobacco: Never Assessed Sex and Gender Information Value Date Recorded Sex Assigned at Not on file Gender Identity Not on file Sexual Orientation Not on file documented as of this encounter Plan of Treatment Not on file documented as of this encounter Procedures Procedure Name Priority Date/Time Associated Diagnosis Comments STRESS TEST SCAN 07/01/2023 12:0 0 AM EST ECG SCAN 07/01/2023 12:00 AM EST documented in this encounter Results * SCAN DOC: STRESS TEST (07/01/2023 12:00 AM EST) Anatomical Region Laterality Modality Other Narrative 07/01/2023 12:00 AM EST Ordered by an unspecified provider. Scanning Provider MEDIA MGR SCAN EXT O RDR/RSLT * SCAN DOC: ECG (07/01/2023 12:00 AM EST) Narrative 07/01/2023 12:00 AM EST Ordered by an unspecified provider. Scanning Provider MEDIA MGR SCAN EXT O RDR/RSLT documented in this encounter Visit Diagnoses Diagnosis Dyspnea, unspecified type documented in this encounter Care Teams Cardiopulmonary Technician And Eeg Tech Relationship Specialty Start Date End Date Carol Palomino APRN [address] [place] [address] PCP - General Internal Medicine 05/31/23 documented as of this encounter
--- OUTSIDE RECORDS SUMMARY | 2024-06-27 20:25 | XMS_ITS | Continuity of Care Document ---
Author Organization [facility] Address [address] [place] [id number] Care Team Providers Care Electric Melt Operator Name Role Phone MATTHEW ADSH Primary Care Physician Unavailab le Encounter [facility] NBR [id number] Date(s): 06/25/22 - 06/25/[address] [address]- [place] Discharge Disposition: Home or Self Care Attending Physician: MATTHEW DASH Admitting Physician: MATTHEW DASH Allergies, Adverse Reactions, Alerts No Known Allergies Medications omeprazole 0 Refill(s) Start Date: 04/19/22 Status: Ordered Wellbutrin SR 0 Refill(s) Start Date: 04/19/22 Status: Ordered Results Radiology Reports * Exam Date Time Procedure Performing Provider Status 06/25/22 3:47 PM MRI Spine Lumbar w/o Contrast Derek Olivia (Verified) Notes: (MRI Spine Lumbar w/o Contrast) Reason For Exam: LOW BACK PAIN MRI Spine Lumbar w/o Contrast EXAM DESCRIPTION: MRI Spine Lumbar w/o Contrast 06/25/2022 INDICATION: LOW BACK PAIN TECHNIQUE: Multiplanar MRI examination of the lumbar spine utilizing T1, fat-suppressed T2 and fast STIR technique. COMPARISON: None FINDINGS: Lumbar lordosis is anatomic. No scoliosis. [...] significant spinal stenosis or neural foraminal narrowing. L1-2: No focal disc protrusion, significant spinal [...] discussion for individual level description. Normal conus. JOB #: [id number] Final Signed by: Gibson Shaw MD Signed (Electronic Signature): 06/25/2022 3:54 pm Social History Social History Type Response Tobacco Never tobacco user T obacco Use:. Sex MR Lumbar spine WO contrast * Gibson Shaw MD: VERIFY, VERIFY Event Display: Report EXAM DESCRIPTION: MRI Spine Lumbar w/o Contrast 06/25/2022 INDICATION: LOW BACK PAIN TECHNIQUE: Multiplanar MRI examination of the lumbar spine utilizing T1, fat-suppressed T2 and fast STIR technique. COMPARISON: None FINDINGS: Lumbar lordosis is anatomic. No scoliosis. [...] significant spinal stenosis or neural foraminal narrowing. L1-2: No focal disc protrusion, significant spinal [...] discussion for individual level description. Normal conus. JOB #: [id number] Final Signed by: Gibson Shaw MD Signed (Electronic Signature): 06/25/2022 3:54 pm Patient Care team information Personnel Name: MATTHEW DASH
== END 2024-06-27 20:23 | disposition home or self-care (01) ==
LOC: LBN 20:22
PROVIDERS: Visit Provider Physician Assistant Medical
DX: J02.9 Acute pharyngitis, unspecified (principal)
CPT/HCPCS: 87077; 87070

== ENCOUNTER 2025-04-13 20:06 | Emergency (ER) | payer OTHER, SELFPAY ==
[2025-04-13 19:59] VITALS: BP 172/96; PULSE 76; RESP 18; TEMP 36.2; O2SAT 97
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
[2025-04-13] MEDS: Lidocaine 5% Patch 1 PATCH TP (20:30)
[2025-04-13] MEDS: Acetaminophen 500 MG TAB 1000 MG PO (20:30)
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
[2025-04-13 21:43] VITALS: BP 156/74; PULSE 82; RESP 18; O2SAT 99
== END 2025-04-13 21:43 | disposition home or self-care (01) ==
PROVIDERS: Emergency Provider Emergency Medicine
DX: M54.50 Low back pain, unspecified (principal); V49.9XXA Car occupant (driver) (passenger) injured in unspecified traffic accident, initial encounter
CPT/HCPCS: 99283; 99284; 72110; 72170

== ENCOUNTER → 2025-05-05 14:52 | Outpatient (CLI) | payer OTHER, SELFPAY ==
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
== END ==
LOC: DI 14:52
PROVIDERS: Visit Provider Physician Assistant Medical
DX: M25.521 Pain in right elbow (principal)
CPT/HCPCS: 73080